=== PATIENT | male | born 1985 | race Caucasian/White ===

== ENCOUNTER 2023-01-02 12:10 | Emergency (ER) | payer BC, SELFPAY ==
[2023-01-02 12:14] VITALS: BP 170/102; PULSE 87; RESP 18; TEMP 36.4; O2SAT 98; BMI 29.9
[2023-01-02] MEDS: FLUORESCEIN SODIUM 1 MG STRIP OP (13:10)
--- NOTE | 2023-01-02 13:22 | ED.EYEPROB1 ---
HPI - Eye Problem General Chief complaint: Eye Problems Stated complaint: POSSIBLE ALLERGIC REACTION IN L EYE Time Seen by Provider: 01/02/23 12:14 Source: patient Mode of arrival: walk-in History of Present Illness HPI Narrative: 37-year-old male to the emergency department to provide of irritation to his left eye. Patient reports he was at his house. He can touch his eye. He reports that he had instant irritation and swelling to the eye. He reports that he has had mild ALLERGIC reactions to cats in the past. Took a Benadryl with only mild relief of symptoms. He does not wear contacts. He is otherwise at baseline health. Related Data Home Medications Medication Instructions Recorded Confirmed fluticasone propionate 50 1 spray intranasal Q12H 01/02/23 01/02/23 mcg/actuation nasal spray,suspension Previous Rx's Medication Instructions Recorded ketotifen fumarate 0.025 % (0.035 1 drp ophthalmic (eye) Q12H PRN 01/02/23 %) eye drops (Allergy Eye allergy symptoms #5 mL (ketotifen)) naphazoline 0.025 %-pheniramine 1 drp ophthalmic (eye) Q12H PRN 01/02/23 0.3 % eye drops (Eye Allergy eye irritation #15 mL Relief (naphazoline-pheniramine)) Allergies Allergy/AdvReac Type Severity Reaction Status Date / Time codeine AdvReac Intermediate Verified 01/02/23 12:17 Review of Systems ROS Status of ROS 10 or more systems reviewed and unremarkable except as noted in history and below Exam Narrative Exam Narrative: Left eye: Conjunctival injection, chemosis. Fluorescein stain with no uptake. Pupils equal round reactive to light. Visual acuity grossly intact. Constitutional Vital Signs, click to edit/add: Last Vital Signs Temp 97.5 F L 01/02/23 12:14 Pulse 87 01/02/23 12:14 Resp 18 01/02/23 12:14 BP 170/102 H 01/02/23 12:14 Pulse Ox 98 01/02/23 12:14 O2 Del Method Room Air 01/02/23 12:14 Course Vital Signs Vital signs: Vital Signs Temperature 97.5 F L 01/02/23 12:14 Pulse Rate 87 01/02/23 12:14 Respiratory Rate 18 01/02/23 12:14 Blood Pressure 170/102 H 01/02/23 12:14 Pulse Oximetry 98 01/02/23 12:14 Oxygen Delivery Method Room Air 01/02/23 12:14 Temperature 97.5 F L 01/02/23 12:14 Pulse Rate 87 01/02/23 12:14 Respiratory Rate 18 01/02/23 12:14 Blood Pressure 170/102 H 01/02/23 12:14 Pulse Oximetry 98 01/02/23 12:14 Oxygen Delivery Method Room Air 01/02/23 12:14 MDM - Eye Problem MDM Narrative Medical decision making narrative: 37-year-old male with eye irritation after petting a cat. Vital stable, patient is afebrile. He has impressive ecchymosis on exam. Fluorescein staining without any uptake. No foreign body visualized in the eye. Suspect this is all ALLERGIC conjunctivitis given the history and exam. ALLERGY eyedrops prescribed. He'll follow up with PCP. Return precautions discussed. All questions were answered. The patient was discharged home. Discharge Plan Discharge Chief Complaint: Eye Problems Clinical Impression: Acute allergic conjunctivitis of left eye Patient Disposition: Home, Self-Care Time of Disposition Decision: 13:18 Prescriptions / Home Meds: New Eye Allergy Relief 0.025-0.3 % drops 1 drp ophthalmic (eye) Q12H PRN (Reason: eye irritation) Qty: 15 0RF ketotifen fumarate [Allergy Eye (ketotifen)] 0.025 % (0.035 %) drops 1 drp ophthalmic (eye) Q12H PRN (Reason: allergy symptoms) Qty: 5 0RF No Action fluticasone propionate 50 mcg/actuation spray,suspension 1 spray INTRANASAL Q12H Print Language: Setswana Instructions: How to Use Eye Drops (ED), Conjunctivitis (ED) Stand Alone Forms: Portal Instructions Referrals: Boyd Pino MD [Primary Care Provider] - 1 week
== END 2023-01-02 13:42 | disposition home or self-care (01) ==
PROVIDERS: Emergency Provider Student in an Organized Health Care Education/Training Program; PCP Family Medicine
DX: H10.12 Acute atopic conjunctivitis, left eye (principal)
CPT/HCPCS: 99283

== ENCOUNTER 2023-02-26 09:00 | Outpatient (OUT) | payer BC, SELFPAY ==
--- NOTE | 2023-02-26 09:05 | XR_ITS ---
[address] [address] Patient Name: DAI MUÑOZ MRN: [id number] date: 1985 Sex: M Assigned Patient Location: RAD Current Patient Location: [facility] Accession/Order Number: [id number] Exam Date: 02/26/2023 09:12 Report Date: 02/26/2023 10:25 At the request of: JAKOB LEWIS Procedure: XR abdomen 1V EXAMINATION: XR abdomen 1V HISTORY: Kidney Stone COMPARISON: All/ FINDINGS: KIDNEY/URETER - RIGHT: Numerous nephroliths KIDNEY/URETER - LEFT: Numerous nephrolith PELVIS: No visible ureteral calcifications. Any visible calcifications favor phleboliths. BOWEL: No abnormal dilation or deviation. BONES: No acute abnormality. OTHER: Negative. No abnormal gaseous collections. XR/XR abdomen 1V IMPRESSION: Bilateral nephrolithiasis Electronically authenticated by: FREDI LIMA Date: 02/26/2023 10:25
== END 2023-02-26 09:01 | disposition home or self-care (01) ==
LOC: RAD 09:01
PROVIDERS: PCP Family Medicine; Visit Provider Urology
DX: N20.0 Calculus of kidney (principal)
CPT/HCPCS: 74018

== ENCOUNTER 2023-05-23 15:23 | Outpatient (OUT) | payer BC, SELFPAY ==
[2023-05-23 15:56] LABS: Total Volume 24 Hour Urine 1775 mL/24hr
[2023-05-23 16:04] LABS: Calcium 24 Hour Urine 205.9 mg/24hr (100.0-300.0); Calcium Urine Random 11.6 mg/dL (5.1-21.0); Creatinine Urine Random 60.73 mg/dL (20.00-300.00); Sodium 24 Hour Urine 105 mmol/24h (40-220); Sodium Urine Random 59 mmol/L (30-90)
[2023-05-23 16:08] LABS: Calcium 9.1 mg/dL (8.5-10.1); Carbon Dioxide 30.3 mmol/L (21.0-32.0); Chloride 105 mmol/L (98-107); Estimated GFR (African America >60 (>=60); Estimated GFR (Non-African Ame >60 (>=60); Potassium 3.7 mmol/L (3.5-5.1); Sodium 140 mmol/L (136-145); Uric Acid 6.2 mg/dL (3.5-7.2)
[2023-05-24 11:12] LABS: PTH, Intact 73 pg/mL (15-65)
[2023-05-25 07:09] LABS: Uric Acid, Urine 31.8 mg/dL (Not Estab.); Uric Acid,Urine 24hr 564.5 mg/24 hr (197.2-1078.7)
[2023-05-25 10:11] LABS: Phosphorus, Urine 35.9 mg/dL (Not Estab.); Phosphorus,Urine 24h 637 mg/24 hr (390-1425)
[2023-05-28 15:09] LABS: Citric Acid, U, 24hr 243 mg/24 hr (320-1240); Citric Acid, Urine 137 mg/L (Undefined)
== END 2023-05-23 15:24 | disposition home or self-care (01) ==
LOC: LAB 15:23
PROVIDERS: PCP Family Medicine; Visit Provider Urology
DX: N20.0 Calculus of kidney (principal)
CPT/HCPCS: 36415; 82310; 82340; 82374; 82435; 82507; 82565; 82570; 83735; 83945; 83970; 84105; 84132; 84295; 84300; 84520; 84550; 84560

== ENCOUNTER 2024-07-14 13:19 | Outpatient (OUT) | payer BC, SELFPAY ==
--- NOTE | 2024-07-14 13:23 | XR_ITS ---
[facility] [place] [id number] Patient Name: DAI MUÑOZ MRN: [id number] date: 1985 Sex: M Assigned Patient Location: RAD Current Patient Location: [facility] Accession/Order Number: [id number] Exam Date: 07/14/2024 16:54 Report Date: 07/14/2024 16:54 At the request of: JAKOB LEWIS MD Procedure: XR abdomen 1V KUB: CLINICAL INFORMATION: Follow-up kidney stones. Bilateral flank pain. COMPARISON: KUB 02/26/2023 FINDINGS: Multiple guidewire seen within both kidneys, largest measuring 8 mm within the left kidney. Findings are similar to the prior study. Presumed vascular calcifications are noted. No bowel obstruction or free air. Osseous structures demonstrate degenerative change. XR/XR abdomen 1V IMPRESSION: BILATERAL NEPHROLITHIASIS GROSSLY SIMILAR TO THE PRIOR STUDY. Impression dictated by: Opal Viramontes Jr.[email or web address]/14/2024 4:54 PM Dictation Location: [place] [address] Electronically authenticated by: [id number] Y Date: 07/14/2024 16:54
--- OUTSIDE RECORDS SUMMARY | 2024-07-14 13:25 | XMS_ITS | CCD ---
Author Organization [facility] Providers Care Medicaid Eligibility Specialist Name Role Phone BOYD DESOUZA Primary Care Physician LYLY, DR BOYD Aguilar Primary Care Unavailable YAZ ALDANA Admitting YAZ Raygoza Attending YAZ Raygoza Consulting Unavailable ANDREI, DR LIA Bhakta Admitting Unavailable ANDREI, DR LIA Bhakta Attending Unavailable LYLY, DR BOYD Aguilar Primary Care Unavailable ANDREI, DR LIA Bhakta Consulting Unavailable SYLVIA, DR CANDIE Eisenberg Consulting Unavailable LYLY, DR BOYD Aguilar Primary Care Unavailable YAZ ALDANA Consulting Unavailable YAZ ALDANA Admitting Unavailable KATYA, YAZ Attending Unavailable FREDI NAPIER Consulting Unavailable Boyd Desouza MD Primary Care Provider Boyd Desouza MD Unavailable BOYD DESOUZA Attending Unavailable BOYD DESOUZA Attending Unavailable Ray LEWIS Attending Unavailable Allergies Allergy Classification Reported Allergen(s) Allergy Type Date of Onset Reaction(s) Facility (20 sources) Codeine; Translations: [codeine] Drug Allergy 9 Vomiting (disorder) [facility] (1 source) Codeine Drug Allergy [facility] (1 source) Codeine; Translations: [codeine sulfate] Drug Allergy [facility] Repository Medications Current Medications Medication Drug Class(es) Dates Sig (Normalized) Sig (Original) acetaminophen 500 mg oral tablet (8 sources) Start: 10-04-2021 take 500 mg by mouth every six hours as needed for pain Tylenol 500 mg, Oral, q6hr, PRN as needed for pain, Refills(s) 0 Start Date: 10/04/21 Status: Ordered Start: 10-04-2021 Tylenol Oral, Refills(s) 0 Start Date: 10/04/21 Status: Ordered benzonatate 200 mg oral capsule (2 sources) Non-narcotic Antitussive Start: 07-09-2024 take 1 capsule by mouth three times daily as needed for cough benzonatate (Tessalon) 200 MG capsule Indications: Influenza A Take 1 capsule (200 mg) by mouth 3 (three) times a day as needed for cough Do not crush or chew. 30 capsule 1 07/09/2024 Active Start: 07-09-2024 take 1 capsule by mo uth three times daily as needed for cough benzonatate (Tessalon) 200 MG capsule Indications: Influenza A Take 1 capsule (200 mg) by mouth 3 (three) times a day as needed for cough Do not crush or chew. 30 capsule 1 07/09/2024 Active cetirizine hydrochloride 10 mg oral tablet (3 sources) Histamine-1 Receptor Antagonist Start: 09-21-2023 take 1 tablet by mouth once daily cetirizine (ZyrTEC) 10 MG tablet Indications: Seasonal allergic rhinitis due to pollen Take 1 tablet (10 mg) by mouth Daily 30 tablet 5 09/21/2023 Active fluticasone propionate 0.05 mg/actuat metered dose nasal spray (11 sources) Corticosteroid Start: 12-17-2023 fluticasone (Flonase) 50 MCG/ACT nasal spray Indications: Seasonal allergic rhinitis due to pollen USE 2 SPRAYS IN EACH NOSTRIL DAILY.SHAKE GENTLY.BEFORE FIRST USE,PRIME PUMP.AFTER USE,CLEAN TIP AND REPLACE CAP. 48 mL 2 12/17/2023 Active Start: 10-04-2021 take 50 ug by inhala tion once daily as needed fluticasone propionate 50 mcg, Inhalation, Daily, PRN Allergy symptoms, Refills(s) 0 Start Date: 10/04/21 Status: Ordered Start: 10-04-2021 fluticasone pr opionate Inhalation, Refills(s) 0 Start Date: 10/04/21 Status: Ordered hyoscyamine sulfate 0.125 mg oral tablet (2 sources) Start: 10-04-2021 take 1 tablet by mouth every six hours Levsin 0.125 mg SL Tab 0.125 mg = 1 tab(s), Oral, q6hr, # 20 tab(s), Refills(s) 0, [id number] Start Date: 10/04/21 Status: Ordered ketorolac tromethamine 10 mg oral tablet (2 sources) Nonsteroidal Anti-inflammatory Drug, Cyclooxygenase Inhibitor Start: 10-04-2021 take 1 tablet by mouth every six hours as needed for pain ketorolac 10 mg Tab 10 mg = 1 tab(s), Oral, q6hr, PRN for pain, # 20 tab(s), Refills(s) 0, [id number] Start Date: 10/04/21 Status: Ordered melatonin 3 mg oral tablet (8 sources) Start: 10-04-2021 take 3 mg by mouth once daily at bedtime as needed for sleep melatonin 3 mg, Oral, Once a day (at bedtime), PRN as needed for sleep, Refills(s) 0, Insomnia Start Date: 10/04/21 Status: Ordered Start: 10-04-2021 melatonin Once a day (at bedtime), Refills(s) 0 Start Date: 10/04/21 Status: Ordered potassium bicarbonate 25 meq effervescent oral tablet (4 sources) Start: 08-06-2023 Effer-K 25 MEQ effervescent tablet ALLOW 1 TABLET TO DISSOLVE IN 4 OUNCES OF WATER BEFORE DRINKING TWICE DAILY 08/06/2023 Active predniSONE 50 mg oral tablet (2 sources) Start: 07-09-2024 End: 07-15-2024 take 1 tablet by mouth once daily predniSONE (Deltasone) 50 MG tablet Indications: Influenza A Take 1 tablet (50 mg) by mouth Daily for 6 days 6 tablet 07/09/2024 07/15/2024 Active tamsulosin hydrochloride 0.4 mg oral capsule (3 sources) alpha-Adrenergi c Sedrick Start: 08-17-2023 Tamsulosin Active MG PO August 17, 2023 12:00am Start: 10-04-2021 take 1 capsule by [facility] once daily tamsulosin 0.4 mg Cap 0.4 mg = 1 cap(s), Oral, Daily, # 30 cap(s), Refills(s) 0, Pharmacy: [facility]/pharmacy #[id number] Start Date: 10/04/21 Status: Ordered Vitamin D3 50 mcg (2000 intl units) oral tablet, chewable (2 sources) Start: 10-04-2021 Vitamin D3 50 mcg (2000 intl units) oral tablet, chewable Refills(s) 0 Start Date: 10/04/21 Status: Ordered Problems Active Problems Problem Classification Problem Date Documented Da te Episodic/Chronic Allergic reactions (1 source) Allergic condition; Translations: [Allergy, unspecified, initial encounter] 08-17-2023 Episodic Calculus of urinary tract (20 sources) Kidney stone; Translations: [Calculus of kidney] Onset: 10-04-2021 Episodic Genitourinary symptoms and ill-defined conditions (18 sources) Urgent desire to urinate; Translations: [Urgency of urination] Onset: 10-04-2021 Episodic Headache; including migraine (3 sources) Ophthalmic migraine; Translations: [Migraine with aura, not intractable, without status migrainosus] Onset: 09-21-2023 09-21-2023 Chronic Hyperplasia of prostate (1 source) Benign prostatic hyperplasia; Translations: [Benign prostatic hyperplasia without lower urinary tract symptoms] 08-17-2023 Chronic Influenza (4 sources) Influenza due to Influenza A virus; Translations: [Influenza due to other identified influenza virus with other respiratory manifestations] Onset: 07-09-2024 07-09-2024 Episodic Nutritional deficiencies (3 sources) Vitamin D deficiency; Translations: [Vitamin D deficiency, unspecified] Onset: 09-21-2023 09-21-2023 Chronic Other upper respiratory disease (3 sources) Allergic rhinitis due to pollen; Translations: [Allergic rhinitis due to pollen] Onset: 09-21-2023 09-21-2023 Chronic Other upper respiratory infections (1 source) Acute pharyngitis, unspecified; Translations: [Acute pharyngitis] 08-17-2023 Episodic Past or Other Problems Problem Classification Problem Date Documented Date Episodic/Chronic Abdominal pain (4 sources) Right lower quadrant pain; Translations: [RIGHT LOWER QUADRANT PAIN] Onset: 12-03-2021 Episodic Fluid and electrolyte disorders (3 sources) Hypokalemia; Translations: [Hypokalemia] Onset: 09-21-2023 09-21-2023 Episodic Intestinal infection (3 sources) Viral gastroenteritis; Translations: [Viral intestinal infection, unspecified] Onset: 09-21-2023 Resolved: 07-09-2024 09-21-2023 Episodic Nausea and vomiting (4 sources) Nausea; Translations: [NAUSEA] Onset: 01-28-2022 Episodic Other aftercare (1 source) Other extermination supervisor (current) drug therapy; Translations: [OTH PRISON CURRENT DRUG THERAPY] Onset: 02-09-2022 Episodic Other connective tissue disease (3 sources) Pain in right heel; Translations: [Pain in right foot] Onset: 09-21-2023 09-21-2023 Episodic Other skin disorders (3 sources) Seborrheic keratosis; Translations: [Other seborrheic keratosis] Onset: 09-21-2023 09-21-2023 Episodic Residual codes; unclassified (1 source) Hypothermia, not associated with low environmental temperature; Translations: [HYPOTHERMIA NOT W/LOW ENVIR TEMP] Onset: 02-09-2022 Episodic Residual codes; unclassified (3 sources) Persistent insomnia; Translations: [Insomnia, unspecified] Onset: 09-21-2023 09-21-2023 Episodic Residual codes; unclassified (3 sources) Olfactory hallucinations; Translations: [Other hallucinations] Onset: 09-21-2023 Resolved: 09-21-2023 09-21-2023 Episodic Results Test Name Value Interpretation Reference Range Facility Laboratory - Microbiology an d Antimicrobial susceptibilityon 07-09-2024 SARS-CoV-2 (COVID-19) RNA LOLA+probe Ql (Unsp spec) Negative [facility] No Panel Informationon 07-09 FLU A Positive [facility] FLU B Negative [facility] Interpretation and review of laboratory results Abnormal [facility] XR KUB 1 VIEWon 05-08-2022 XR KUB 1 VIEW EXAMINATION: XR KUB 1 VIEW HISTORY: Kidney stone ; recent lithotripsy COMPARISON: CT abdomen pelvis 12/03/2021 FINDINGS: KIDNEY/URETER - RIGHT: Numerous small stones within kidney. KIDNEY/URETER - LEFT: Numerous tiny calcifications within kidney, likely fragmentation of previously seen larger stones. PELVIS: No visible ureteral stones. Stable pelvic calcifications favoring phleboliths. BOWEL: No abnormal dilation or deviation. BONES: No acute abnormality. OTHER: Negative. No abnormal gaseous collections. IMPRESSION: 1. Bilateral nephrolithiasis. No appreciable ureteral stones. Electronically authenticated by: CANDIE WARD Date: 2022-05-08 16:08 Normal [facility] CHEMISTRYOrdered By: SYSTEM SYSTEM on 04-19-2022 Anion gap [Moles/Vol] 12 mmol/L Normal 6 - 16 mEq/L [facility] Remisol Chloride [Moles/Vol] 105 mmol/L Normal 101 - 1 11 mmol/L [facility] Rem[facility] CO2 [Moles/Vol] 26 mmol/L Normal 21 - 31 mmol/L [facility] Creatinine [Mass/Vol] 1.0 mg/dL Normal 0.5 - 1.3 mg/dL [facility] Remisol GFR/1.73 sq M.predicted among blacks MDRD (S/P/Bld) [Vol rate/Area] mL/min/1.73 m2 Normal >=59mL/min/1. 73 m2 [facility] Chem S GFR/1.73 sq M.predicted among non-blacks MDRD (S/P/Bld) [Vol rate/Area] mL/min/1.73 m2 Normal >=59mL/min/1. 73 m2 [facility] Chem S Potassium [Moles/Vol] 3.7 mmol/L Normal 3.5 - 5.3 mmol/L [facility]isol Sodium [Moles/Vol] 139 mmol/L Normal 135 - 145 mmol/L [facility] Urea nitrogen [Mass/Vol] 16 mg/dL Normal 5 - 21 mg/dL [facility] COAGULATIONOrdered By: Carmelina Burrell on 04-19-2022 aPTT Coag (PPP) [Time] 32.8 s Normal 25.1 - 36.5 second(s) [facility] Auto Coag INR Coag (PPP) [Relative time] 1.0 {INR} Invalid Interpretation Code [facility] Auto Coag PT Coag (PPP) [Time] 10.8 s Normal 9.4 - 1 2.5 second(s) [facility] Auto Coag HEMATOLOGYOrdered By: Chelsy Carrillo on 04-19-2022 Erythrocyte distribution width (RBC) [Ratio] 14.1 % Normal 10.9 - 14.2 % [facility] Hematocrit (Bld) [Volume fraction] 42.7 % Normal 37.7 - 49.0 % [facility] Hemoglobin (Bld) [Mass/Vol] 14.7 g/dL Normal 13.5 - 17.5 gm/dL [facility] MCH (RBC) [Entitic mass] 28.3 pg Normal 27.0 - 34.0 pg [facility] MCHC (RBC) [Mass/Vol] 34.5 g/dL Normal 31.4 - 36.0 gm/dL [facility] MCV (RBC) [Entitic vol] 82.0 fL Normal 80.0 - 100.0 fL [facility] Platelet mean volume (Bld) [Entitic vol] 8.4 fL Normal 6.4 - 10.8 fL [facility] Platelets (Bld) [#/Vol] 247.0 E9/L Normal 150.0 - 500.0 E9/L [facility] RBC (Bld) [#/Vol] 5.2 E12/L Normal 4.3 - 5.9 E12/L [facility] WBC corrected for nucl RBC Auto (Bld) [#/Vol] 6.6 E9/L Normal 4.0 - 11.0 E9/L [facility] URINALYSISOrdered By: Quin Burrell on 04-19-2022 Bacteria LM Ql (Urine sed) Trace /HPF Normal Trace/HPF [facility] UA Auto SS Bilirubin Ql (U) Negative (04/19/22 11:46 AM) Normal Negative [facility] UA Auto SS Clarity (U) Clear (04/19/22 11:46 AM) Normal Clear [facility] UA Auto SS Color (U) Yellow (04/19/22 11:46 AM) Normal Yellow [facility] UA Auto SS Epithelial cells.squamous LM.HPF (Urine sed) [#/Area] 0-2 /HPF Normal 0-2/HPF [facility] UA Aut o SS Glucose Test strip (U) [Mass/Vol] Negative (04/19/22 11:46 AM) Normal Negative [facility] UA Auto SS Hemoglobin Ql (U) Trace *ABN* (04/19/22 11:46 AM) Invalid Interpretation Code Negative [facility] UA Auto SS Ketones (U) [Mass/Vol] Negative (04/19/22 11:46 AM) Normal Negative [facility] UA Auto SS [place].plasma/[place] .RBC (Bld) [Mass ratio] 0-3 /HPF Normal 0-3/HPF [facility] UA Auto SS Mucus Ql (Urine sed) 2+ (04/19/22 11:46 AM) Normal [facility] UA Auto SS Nitrite Ql (U) Negative (04/19/22 11:46 AM) Normal Negative [facility] UA Auto SS pH (U) 5.5 *NA* (04/19/22 11:46 AM) Invalid Interpretation Code 5.0 - 9.0 [facility] UA Auto SS Protein (U) [Mass/Vol] Negative (04/19/22 11:46 AM) Normal Negative [facility] UA Auto SS Specific gravity (U) [Rel density] 1.025 *NA* (04/19/22 11:46 AM) Invalid Interpretation Code 1.005 - 1.030 [facility] UA Auto SS UA Spec Desc Clean Catch (04/19/22 11:46 AM) Normal [facility] UA Auto SS Urobilinogen Qn (U) 0.3337666 {Padmini'U}/dL Normal 0.0 - 1.0 EU/dL [facility] UA Auto SS WBC Auto Ql (U) Negative (04/19/22 11:46 AM) Normal Negative [facility] UA Auto SS WBC LM.HPF (Urine sed) [#/Area] 0-5 /HPF Normal 0-5/HPF [facility] UA Auto SS CHEMISTRYOrdered By: SYSTEM SYSTEM on 01-13-2022 Anion gap [Moles/Vol] 12 mmol/L Normal 6 - 16 mEq/L [facility] Remisol Calcium [Mass/Vol] 9.4 mg/dL Normal 8.9 - 11. 1 mg/dL [facility] Remisol Chloride [Moles/Vol] 105 mmol/L Normal 101 - 1 11 mmol/L [facility] Remisol CO2 [Moles/Vol] 24 mmol/L Normal 21 - 31 mmol/L [facility] Remisol Creatinine [Mass/Vol] 1.0 mg/dL Normal 0.5 - 1.3 mg/dL [facility] Rem[facility] GFR/1.73 sq M.predicted among blacks MDRD (S/P/Bld) [Vol rate/Area] mL/min/1.73 m2 Normal >=59mL/min/1. 73 m2 [facility] Chem S GFR/1.73 sq M.predicted among non-blacks MDRD (S/P/Bld) [Vol rate/Area] mL/min/1.73 m2 Normal >=59mL/min/1. 73 m2 [facility] Chem S Glucose [Mass/Vol] 88 mg/dL Normal 55 - 199 mg/dL [facility] Remisol Potassium [Moles/Vol] 3.7 mmol/L Normal 3.5 - 5.3 mmol/L [facility]isol Sodium [Moles/Vol] 137 mmol/L Normal 135 - 145 mmol/L [facility] Urea nitrogen [Mass/Vol] 12 mg/dL Normal 5 - 21 mg/dL [facility]isol Urea nitrogen/Creatinine [Mass ratio] 12 mg/mg Normal 10 - 20 [facility] COAGULATIONOrdered By: Jae Carrillo on 01-13-2022 aPTT Coag (PPP) [Time] 32.4 s Normal 25.1 - 36.5 second(s) [facility] Auto Coag INR Coag (PPP) [Relative time] 1.0 {INR} Invalid Interpretation Code [facility] Auto Coag PT Coag (PPP) [Time] 10.6 s Normal 9.4 - 1 2.5 second(s) [facility] Auto Coag HEMATOLOGYOrdered By: SYSTEM SYSTEM on 01-13-2022 Basophils/100 WBC (Bld) 0.4 % Normal 0.0 - 2.0 % [facility] Basophils/Leukocytes Auto (Bld) [Pure # fraction] 0.0 E9/L Normal 0.0 - 0.2 E9/L [facility] Eosinophils/100 WBC (Bld) 3.1 % Normal 0.0 - 8.0 % [facility] Eosinophils/Leukocytes Auto (Bld) [Pure # fraction] 0.2 E9/L Normal 0.0 - 0.5 E9/L [facility] Lymphocytes/100 WBC (Bld) 32.8 % Normal 14.0 - 50.0 % [facility] Lymphocytes/Leukocytes Auto (Bld) [Pure # fraction] 2.1 E9/L Normal 1.0 - 4.0 E9/L [facility] Monocytes/100 WBC (Bld) 8.0 % Normal 4.0 - 14.0 % [facility] Monocytes/Leukocytes Auto (Bld) [Pure # fraction] 0.5 E9/L Normal 0.2 - 1.0 E9/L [facility] Neutrophils/100 WBC (Bld) 55.7 % Normal 36.0 - 75.0 % [facility] Neutrophils/Leukocytes Auto (Bld) [Pure # fraction] 3.5 E9/L Normal 2.0 - 7.5 E9/L [facility] HEMATOLOGYOrdered By: Shahriar Saul on 01-13-2022 Erythrocyte distribution width (RBC) [Ratio] 14.2 % Normal 10.9 - 14.2 % [facility] Hematocrit (Bld) [Volume fraction] 42.6 % Normal 37.7 - 49.0 % [facility] Hemoglobin (Bld) [Mass/Vol] 14.5 g/dL Normal 13.5 - 17.5 gm/dL [facility] MCH (RBC) [Entitic mass] 28.2 pg Normal 27.0 - 34.0 pg [facility] MCHC (RBC) [Mass/Vol] 34.0 g/dL Normal 31.4 - 36.0 gm/dL [facility] MCV (RBC) [Entitic vol] 82.9 fL Normal 80.0 - 100.0 fL [facility] Platelet mean volume (Bld) [Entitic vol] 9.4 fL Normal 6.4 - 10.8 fL [facility] Platelets (Bld) [#/Vol] 235.0 E9/L Normal 150.0 - 500.0 E9/L [facility] RBC (Bld) [#/Vol] 5.1 E12/L Normal 4.3 - 5.9 E12/L [facility] WBC corrected for nucl RBC Auto (Bld) [#/Vol] 6.3 E9/L Normal 4.0 - 11.0 E9/L [facility] URINALYSISOrdered By: Chelsy Carrillo on 01-13-2022 Bilirubin Ql (U) Negative (01/13/22 10:40 AM) Normal Negative [facility] UA Auto SS Clarity (U) Clear (01/13/22 10:40 AM) Normal Clear [facility] UA Auto SS Color (U) Yellow (01/13/22 10:40 AM) Normal Yellow [facility] UA Auto SS Epithelial cells.squamous LM.HPF (Urine sed) [#/Area] 0-2 /HPF Normal 0-2/HPF [facility] Aut o SS Glucose Test strip (U) [Mass/Vol] Negative (01/13/22 10:40 AM) Normal Negative [facility] UA Auto SS Hemoglobin Ql (U) Trace *ABN* (01/13/22 10:40 AM) Invalid Interpretation Code Negative [facility] UA Auto SS Ketones (U) [Mass/Vol] Negative (01/13/22 10:40 AM) Normal Negative [facility] UA Auto SS [place].plasma/[place] .RBC (Bld) [Mass ratio] 0-3 /HPF Normal 0-3/HPF [facility] UA Auto SS Mucus Ql (Urine sed) Trace (01/13/22 10:40 AM) Normal [facility] UA Auto SS Nitrite Ql (U) Negative (01/13/22 10:40 AM) Normal Negative [facility] UA Auto SS pH (U) 6.0 *NA* (01/13/22 10:40 AM) Invalid Interpretation Code 5.0 - 9.0 [facility] UA Auto SS Protein (U) [Mass/Vol] Negative (01/13/22 10:40 AM) Normal Negative [facility] UA Auto SS Specific gravity (U) [Rel density] 1.020 *NA* (01/13/22 10:40 AM) Invalid Interpretation Code 1.005 - 1.030 [facility] UA Auto SS UA Spec Desc Clean Catch (01/13/22 10:40 AM) Normal [facility] UA Auto SS Urobilinogen Qn (U) 0.1188567 {Padmini'U}/dL Normal 0.0 - 1.0 EU/dL [facility] U[facility] Auto SS WBC Auto Ql (U) Negative (01/13/22 10:40 AM) Normal Negative [facility] Auto SS WBC LM.HPF (Urine sed) [#/Area] 0-5 /HPF Normal 0-5/HPF [facility] UA Auto SS CBC AUTO DIFFon 12-03-2021 BASO # 0.0 103/ul Normal 0.0-0.1 [facility] Comment on above: Performed By: #### C BC #### [facility] [address] [place] [address] Dr. Vivian Quintanilla Basophils/100 WBC (Bld) 0.3 % Normal 0.2-2.0 [facility] Comment on above: Performed By: #### C BC #### [facility] [address] [place] [address] [id number] [address] Vivian Quintanilla EO # 0.2 103/ul Normal 0.0-0.7 [facility] Comment on above: Performed By: #### C BC #### [facility] [address] [place] [address] Dr. Vivian Quintanilla Eosinophils/100 WBC (Bld) 3.3 % Normal 0.9-7.0 [facility] Comment on above: Performed By: #### C BC #### [facility] [address] [place] [address] Dr. Vivian Quintanilla Erythrocyte distribution width (RBC) [Ratio] 13.4 % Normal 11.0-15.0 [facility] Comment on above: Performed By: #### C BC #### [facility] [address] [place] [address] Dr. Vivian Quintanilla Hematocrit (Bld) [Volume fraction] 43.2 % Normal 42.0-54.0 [facility] Comment on above: Performed By: #### C BC #### [facility] [address] [place] [address] Dr. Vivian Quintanilla Hemoglobin (Bld) [Mass/Vol] 14.3 g/dL Normal 14.0-18.0 [facility] Comment on above: Performed By: #### C BC #### [facility] [address] [place] [address] Dr. Vivian Quintanilla IG # 0.01 10e3/ul Normal 0.00-0.03 [facility] Comment on above: Performed By: #### C BC #### [facility] [address] [place] [address] Dr. Vivian Quintanilla IG % 0.2 % Normal 0.0-0.5 [facility] Comment on above: Performed By: #### C BC #### [facility] [address] [place] [address] Dr. Vivian Quintanilla LYMPH # 2.2 103/ul Normal 1.2-3.8 [facility] Comment on above: Performed By: #### C BC #### [facility] [address] [place] [address] Dr. Vivian Quintanilla Lymphocytes/100 WBC (Bld) 35.2 % Normal 20.5-60.0 [facility] Comment on above: Performed By: #### C BC #### [facility] [address] [place] [address] Dr. Vivian Quintanilla MANUAL DIFF REQ NO Normal [facility] Comment on above: Performed By: #### C BC #### [facility] [address] [place] [address] Dr. Vivian Quintanilla MCH (RBC) [Entitic mass] 28.1 pg Normal 25.9-34.0 [facility] Comment on above: Performed By: #### C BC #### [facility] [address] [place] [address] Dr. Vivian Quintanilla MCHC (RBC) [Mass/Vol] 33.1 g/dL Normal 29.9-35.2 [facility] Comment on above: Performed By: #### C BC #### [facility] [address] [place] [address] Dr. Vivian Quintanilla MCV (RBC) [Entitic vol] 84.9 fL Normal 80.0-94.0 [facility] Comment on above: Performed By: #### C BC #### [facility] [address] [place] [address] Dr. Vivian Quintanilla MONO # 0.3 103/ul Normal 0.3-0.8 [facility] Comment on above: Performed By: #### C BC #### [facility] [address] [place] [address] Dr. Vivian Quintanilla Monocytes/100 WBC (Bld) 5.2 % Normal 1.7-12.0 [facility] Comment on above: Performed By: #### C BC #### [facility] [address] [place] [address] Dr. Vivian Quintanilla NEUT # 3.4 103/ul Normal 1.4-6.5 [facility] Comment on above: Performed By: #### C BC #### [facility] [address] [place] [address] Dr. Vivian Quintanilla Neutrophils/100 WBC (Bld) 55.8 % Normal 43.0-75.0 [facility] Comment on above: Performed By: #### C BC #### [facility] [address], [place] [address] Dr. Vivian Quintanilla Platelet mean volume (Bld) [Entitic vol] 10.4 fL Normal 9.5-13.5 [facility] Comment on above: Performed By: #### C BC #### [facility] [address] [place], [place] [address] Dr. Vivian Quintanilla PLT 241 103/ul Normal 150-450 [facility] Comment on above: Performed By: #### C BC #### [facility] [address] [place], [place] [address] Dr. Vivian Quintanilla RBC 5.09 106/ul Normal 4.70-6.10 [facility] Comment on above: Performed By: #### C BC #### [facility] [address] [place] [address] [address] Vivian Quintanilla WBC 6.1 103/ul Normal 4.0-11.0 [facility] Comment on above: Performed By: #### C BC #### [facility] [address] [place] ABD/PELVIS WO CONon 12-03 CT ABD/PELVIS WO CON CT ABD/PELVIS WO CON CLINICAL: Calculus of kidney. Acute right flank pain. COMPARISON: 04/20/2021, 12/03/2015. TECHNIQUE: High-resolution axial images were obtained from diaphragms to pubic symphysis. Dose reduction: mA and/or kV are were adjusted by automated exposure control software based upon patients height and weight. FINDINGS: Lung bases are unremarkable. The liver is diffusely decreased in density without focal space-occupying lesion. Gallbladder shows no calcified gallstones. No CT evidence of biliary obstruction. Spleen, pancreas and adrenals are unremarkable. There are bilateral renal calculi present, measuring up to 6 mm on the right and 5 mm on the left. No evidence of acute obstructive uropathy, attention to the right side. No hydroureter or hydronephrosis on either side. No evidence of perinephric fluid collection. Urinary bladder shows no evidence of calculus and is incompletely distended. Prostate is upper normal in size. No bowel obstruction or free intraperitoneal air. No ascites or abdominal adenopathy. The appendix is not identified with certainty, and there are surgical clips near the cecal apex and in the right lower quadrant suggesting prior appendectomy, correlate with clinical history. No CT evidence of acute appendicitis. Osseous structures show no acute traumatic or destructive lesion. IMPRESSION: 1. No evidence of acute urinary obstruction. Multiple nonobstructing calculi are present in both kidneys, as detailed above. No hydroureteronephros is, bladder calculus, or ureteral calculus on either side, attention to the right. 2. No acute intra-abdominal findings. Diffuse hepatic steatosis is noted. Electronically authenticated by: FREDI NAPIER Date: 2021-12-03 14:00 Normal [facility] ER URINE PROFILEon 2 Bilirubin Ql (U) Negative Normal NEGATIVE [facility] Comment on above: Performed By: #### U MICRO, ERUR #### [facility] [address] [place] [address] Dr. Vivian Quintanilla Clarity (U) CLEAR Normal CLEAR [facility] Comment on above: Performed By: #### U MICRO, ERUR #### [facility] [address] [place] [address] Dr. Vivian Quintanilla Color (U) YELLOW Normal YELLOW [facility] Comment on above: Performed By: #### U MICRO, ERUR #### [facility] [address] [place] [address] Dr. Vivian SAMSD A micrscopic examination will be performed if indicated. Normal [facility] Comment on above: Performed By: #### U MICRO, ERUR #### [facility] [address] [place] [address] Dr. Vivian Quintanilla Glucose Ql (U) Negative Normal NEGATIVE The [facility] Comment on above: Performed By: #### U MICRO, ERUR #### [facility] [address] [place] [address] Dr. Vivian Quintanilla Hemoglobin Ql (U) SMALL Abnormal NEGATIVE [facility] Comment on above: Performed By: #### U MICRO, ERUR #### [facility] [address] [place] [address] Dr. Vivian Quintanilla Ketones Ql (U) Negative Normal NEGATIVE [facility] Comment on above: Performed By: #### U MICRO, ERUR #### [facility] [address] [place] [address] Dr. Vivian Quintanilla LEUKOCYTES Negative Normal NEGATIVE [facility] Comment on above: Performed By: #### U MICRO, ERUR #### [facility] [address] [place] [address] Dr. Vivian Quintanilla Nitrite Ql (U) Negative Normal NEGATIVE [facility] Comment on above: Performed By: #### U MICRO, ERUR #### [facility] [address] [place] [address] Dr. Vivian Quintanilla pH (U) 6.0 [pH] Normal 5-9 [facility] Comment on above: Performed By: #### U MICRO, ERUR #### [facility] [address] [place] [address] Dr. Vivian Quintanilla SPEC GRAVITY 1.025 Normal 1.005-<=1.025 [facility] Comment on above: Performed By: #### U MICRO, ERUR #### [facility] [address] [place] [address] Dr. Vivian Quintanilla UA PROTEIN Negative Normal NEGATIVE/ TRACE [facility] Comment on above: Performed By: #### U MICRO, ERUR #### [facility] [address] [place] [address] Dr. Vivian Quintanilla UR MICRO IND INDICATED Normal [facility] Comment on above: Performed By: #### U MICRO, ERUR #### [facility] [address] [place] [address] Dr. Vivian Quintanilla Urobilinogen Qn (U) 0.2 {Padmini'U}/dL Normal 0.2 - 1. 0 [facility] Comment on above: Performed By: #### U MICRO, ERUR #### [facility] [address] [place] [address] Dr. Vivian Quintanilla LIPASEon 12-03-2021 Lipase [Catalytic activity/Vol] 108.0 U/L Normal 73.0-393.0 [facility] Comment on above: Performed By: #### C MP, LIPA #### [facility] [address] [address] [address] Vivian Quintanilla PROF 14(COMP METB)on 022 Albumin [Mass/Vol] 3.7 g/dL Normal 3.4-5.0 [facility] Comment on above: Performed By: #### C MP, LIPA #### [facility] [address] [address] [address] Vivian Quintanilla Albumin/Globulin [Mass ratio] 1.1 {ratio} Normal [facility] Comment on above: Performed By: #### C MP, LIPA #### [facility] [address] [address] [address] Vivian Quintanilla ALP [Catalytic activity/Vol] 72 U/L Normal 46-116 [facility] Comment on above: Performed By: #### C MP, LIPA #### [facility] [address] [address] [address] Vivian Quintanilla ALT [Catalytic activity/Vol] 45 U/L Normal 16-63 [facility] Comment on above: Performed By: #### C MP, LIPA #### [facility] [address] [address] [address] Vivian Quintanilla Anion gap [Moles/Vol] 11.5 mmol/L Normal [facility] Comment on above: Performed By: #### C MP, LIPA #### [facility] [address] [address] [address] Vivian Quintanilla AST [Catalytic activity/Vol] 19 U/L Normal 15-37 [facility] Comment on above: Performed By: #### C MP, LIPA #### [facility] [address] [address] [address] Vivian Quintanilla Bilirubin [Mass/Vol] 0.5 mg/dL Normal 0.2-1.0 [facility] Comment on above: Performed By: #### C MP, LIPA #### [facility] [address] [address] [address] Vivian Quintanilla Calcium [Mass/Vol] 8.9 mg/dL Normal 8.5-10.1 [facility] Comment on above: Performed By: #### C MP, LIPA #### [facility] [address] [address] [address] Vivian Quintanilla Chloride [Moles/Vol] 106 mmol/L Normal 98-107 [facility] Comment on above: Performed By: #### C MP, LIPA #### [facility] [address] [address] [address] Vivian Quintanilla CO2 [Moles/Vol] 26.1 mmol/L Normal 21.0-32.0 [facility] Comment on above: Performed By: #### C MP, LIPA #### [facility] [address] [place] [address] Dr. Vivian Quintanilla Creatinine [Mass/Vol] 1.24 mg/dL Normal 0.70-1.30 [facility] Comment on above: Performed By: #### C MP, LIPA #### [facility] [address] [place] [address] Dr. Vivian Quintanilla EGFR-AF ARMENIAN >60 Normal >=60 [facility] Comment on above: Performed By: #### C MP, LIPA #### [facility] [address] [place] [address] Dr. Vivian Quintanilla EGFR-NON AF ARMENIAN >60 Normal >=60 [facility] Comment on above: Performed By: #### C MP, LIPA #### [facility] [address] [place] [address] Dr. Vivian Quintanilla Globulin (S) [Mass/Vol] 3.4 g/dL Normal [facility] Comment on above: Performed By: #### C MP, LIPA #### [facility] [address] [place] [address] Dr. Vivian Quintanilla Glucose [Mass/Vol] 147 mg/dL Critically high 74-106 [facility] Comment on above: Performed By: #### C MP, LIPA #### [facility] [address] [place] [address] Dr. Vivian Quintanilla Potassium [Moles/Vol] 3.6 mmol/L Normal 3.5-5.1 [facility] Comment on above: Performed By: #### C MP, LIPA #### [facility] [address] [place] [address] Dr. Vivian Quintanilla Protein [Mass/Vol] 7.1 g/dL Normal 6.4-8.2 [facility] Comment on above: Performed By: #### C MP, LIPA #### [facility] [address] [place] [address] Dr. Vivian Quintanilla Sodium [Moles/Vol] 140 mmol/L Normal 136-145 [facility] Comment on above: Performed By: #### C MP, LIPA #### [facility] [address] [place] [address] Dr. Vivian Quintanilla Urea nitrogen [Mass/Vol] 11.0 mg/dL Normal 7.0-18.0 [facility] Comment on above: Performed By: #### C MP, LIPA #### [facility] [address] [place] [address] Dr. Vivian Quintanilla Urea nitrogen/Creatinine [Mass ratio] 8.9 mg/mg Normal [facility] Comment on above: Performed By: #### C MP, LIPA #### [facility] [address] [place] [address] Dr. Vivian Quintanilla URINE MICROSCOPIC ONLYon BACTERIA NONE SEEN Normal NONE SEEN [facility] Comment on above: Performed By: #### U MICRO, ERUR #### [facility] [address] [place] [address] Dr. Vivian Quintanilla Bacteria identified Cx Nom (U) NOT INDICATED Normal [facility] Comment on above: Performed By: #### U MICRO, ERUR #### [facility] [address] [place] [address] Dr. Vivian Quintanilla CAST NONE SEEN Normal NONE SEEN [facility] Comment on above: Performed By: #### U MICRO, ERUR #### [facility] [address] [place] [address] Dr. Vivian Quintanilla Crystals LM Nom (Urine sed) NONE SEEN Normal NONE SEEN [facility] Comment on above: Performed By: #### U MICRO, ERUR #### [facility] [address] [address] [address] Vivian Quintanilla Epithelial cells LM Ql (Urine sed) FEW Abnormal NONE SEEN /RARE [facility] Comment on above: Performed By: #### U MICRO, ERUR #### [facility] [address] [address] [address] Vivian Quintanilla MUCOUS NONE SEEN Normal NONE SEEN [facility] Comment on above: Performed By: #### U MICRO, ERUR #### [facility] [address] [address] [address] Vivian Quintanilla RBC 2-5 Abnormal 0-2 [facility] Comment on above: Performed By: #### U MICRO, ERUR #### [facility] [address] [place] [address] Dr. Vivian Quintanilla WBC NONE SEEN Normal NONE SEEN [facility] Comment on above: Performed By: #### U MICRO, ERUR #### [facility] [address] [address] [address] Vivian Quintanilla Vital Signs Date Time Vital Sign Value Performing Clinician Facility 07-09-2024 09:33-0500 Body height 160 cm Boyd Desouza MD Work Phone: [facility] 07-09-2024 09:33-0500 Body mass index (BMI) [Ratio] 30.29 kg/m2 Boyd Desouza MD Work Phone: [facility] 07-09-2024 09:33-0500 Body temperature 98.4 [degF] Boyd Desouza MD Work Phone: [facility] 07-09-2024 09:33-0500 Body weight 77.56 kg Boyd Desouza MD Work Phone: [facility] 07-09-2024 09:33-0500 Diastolic blood pressure 68 mm[Hg] Boyd Desouza MD Work Phone: [facility] 07-09-2024 09:33-0500 Heart rate 94 /min Boyd Desouza MD Work Phone: [facility] 07-09-2024 09:33-0500 Respiratory rate 22 /min Boyd Desouza MD Work Phone: [facility] 07-09-2024 09:33-0500 SaO2% (BldA) [Mass fraction] 95 % Boyd Desouza MD Work Phone: [facility] 07-09-2024 09:33-0500 Systolic blood pressure 126 mm[Hg] Boyd Desouza MD Work Phone: [facility] 08-17-2023 09:47-0400 Body height 162.56 cm [facility] 08-17-2023 09:47-0400 Body mass index (BMI) [Ratio] 30.9 kg/m2 [facility] 08-17-2023 09:47-0400 Body temperature 98.9 [degF] [facility] 08-17-2023 09:47-0400 Body weight 81.64 kg [facility] 08-17-2023 09:47-0400 Heart rate 105 /min [facility] 08-17-2023 09:47-0400 Respiratory rate 18 /min [facility] 08-17-2023 09:47-0400 SaO2% (BldA) [Mass fraction] 98 % [facility] 02-26-2023 10:31-0400 Blood Pressure Location Ray LEWIS [facility] 02-26-2023 10:31-0400 Diastolic blood pressure 80 mm[Hg] Ray LEWIS [facility] 02-26-2023 10:31-0400 Heart rate 79 /min Ray LEWIS [facility] 02-26-2023 10:31-0400 Respiratory rate 16 /min Ray LEWIS [facility] 02-26-2023 10:31-0400 Systolic blood pressure 139 mm[Hg] Ray LEWIS [facility] 04-19-2022 15:28-0500 Blood Pressure Location Lia FORBES [facility] 04-19-2022 15:28-0500 Diastolic blood pressure 88 mm[Hg] Lia RICE [facility] 04-19-2022 15:28-0500 Heart rate 82 /min Lia RICE [facility] 04-19-2022 15:28-0500 Mean blood pressure 103 mm[Hg] Lia RICE [facility] 04-19-2022 15:28-0500 Respiratory rate 18 /min Lia [employer] [facility] 04-19-2022 15:28-0500 SaO2% (BldA) [Mass fraction] 97 % Lia RICE [facility] 04-19-2022 15:28-0500 Systolic blood pressure 132 mm[Hg] Lia RICE [facility] 04-19-2022 14:35-0500 Blood Pressure Location Lia RICE [facility] 04-19-2022 14:35-0500 Diastolic blood pressure 79 mm[Hg] Lia RICE [facility] 04-19-2022 14:35-0500 Heart rate 84 /min Lia RICE [facility] 04-19-2022 14:35-0500 Mean blood pressure 96 mm[Hg] Lia RICE [facility] 04-19-2022 14:35-0500 Respiratory rate 16 /min Lia RICE [facility] 04-19-2022 14:35-0500 SaO2% (BldA) [Mass fraction] 97 % Lia RICE [facility] 04-19-2022 14:35-0500 Systolic blood pressure 130 mm[Hg] Lia RICE [facility] 04-19-2022 14:30-0500 Blood Pressure Location Lia RICE [facility] 04-19-2022 14:30-0500 Body temperature 97.16 [degF] Lia RICE [facility] 04-19-2022 14:30-0500 Diastolic blood pressure 88 mm[Hg] Lia RICE [facility] 04-19-2022 14:30-0500 Heart rate 76 /min Lia [employer] [facility] 04-19-2022 14:30-0500 Mean blood pressure 102 mm[Hg] Lia RICE [facility] 04-19-2022 14:30-0500 Respiratory rate 12 /min Lia RICE [facility] 04-19-2022 14:30-0500 SaO2% (BldA) [Mass fraction] 94 % Lia RICE [facility] 04-19-2022 14:30-0500 Systolic blood pressure 130 mm[Hg] Lia RICE [facility] 04-19-2022 14:20-0500 Respiratory rate 14 /min Lia RICE [facility] 04-19-2022 14:15-0500 Respiratory rate 13 /min Lia RICE [facility] 04-19-2022 14:07-0500 Body temperature 97.16 [degF] Lia [employer] [facility] 04-19-2022 14:05-0500 Respiratory rate 5 /min Lia RICE [facility] 04-19-2022 11:48-0500 Heart rate 80 /min Lia RICE [facility] 04-19-2022 11:47-0500 Body temperature 97.52 [degF] Lia RICE [facility] 01-13-2022 10:22-0400 Body temperature 97.88 [degF] Lia RICE [facility] 01-13-2022 10:22-0400 Diastolic blood pressure 88 mm[Hg] Lia RICE [facility] 01-13-2022 10:22-0400 Heart rate 74 /min Lia RICE [facility] 01-13-2022 10:22-0400 Mean blood pressure 103 mm[Hg] Lia RICE [facility] 01-13-2022 10:22-0400 Systolic blood pressure 134 mm[Hg] Lia RICE [facility] 01-13-2022 10:21-0400 Blood Pressure Location Lia RICE [facility] 01-13-2022 10:21-0400 BP/Pulse Patient Position Lia RICE [facility] 01-13-2022 10:21-0400 Diastolic blood pressure 79 mm[Hg] Lia RICE [facility] 01-13-2022 10:21-0400 Heart rate 79 /min Lia RICE [facility] 01-13-2022 10:21-0400 Mean blood pressure 93 mm[Hg] Lia RICE [facility] 01-13-2022 10:21-0400 Respiratory rate 18 /min Lia RICE [facility] 01-13-2022 10:21-0400 SaO2% (BldA) [Mass fraction] 97 % Lia FORBES [facility] 01-13-2022 10:21-0400 Systolic blood pressure 121 mm[Hg] Lia FORBES [facility] Encounters Encounter Date Encounter Type Care Provider Facility Start: 07-14-2024 ambulatory Ray LEWIS Facili ty:[facility] [place] Start: 07-09-2024 End: 07-09-2024 Bamboo flowsheet Boyd Desouza MD Work Phone: [facility] Start: 07-09-2024 End: 07-09-2024 Bamlatoya flowsheet Boyd Desouza MD Work Phone: [facility] Start: 07-09-2024 End: 07-09-2024 Office outpatient visit 15 minutes Boyd Desouza MD Work Phone: [facility] Comment on above: Influenza A (Primary Dx) Start: 07-09-2024 End: 07-09-2024 ambulatory BOYD DESOUZA Not Available Start: 09-21-2023 End: 09-21-2023 ambulatory BOYD DESOUZA Not Available Start: 08-17-2023 End: 08-17-[address] [facility] Work Phone: Start: 08-17-2023 End: 08-17-2023 Patient encounter procedure [facility]ly [facility] Physician [facility] Work Phone: Start: 05-25-2023 End: 05-25-2023 Lab Drop off Ray LEWIS [facility] Start: 05-25-2023 End: 05-25-2023 Patient encounter procedure Ray LEWIS [facility] [place] Start: 02-26-2023 End: 02-26-2023 Patient encounter procedure Ray LEWIS [facility] Start: 05-08-2022 End: 05-09-[address] LIA FORBES Facility:[facility] Start: 04-19-2022 End: 04-19-2022 Admission to same day surgery center Lia FORBES [facility] Start: 01-28-2022 End: 01-28-[address] BOYD DESOUZA Facility:[facility] Start: 01-13-2022 End: 01-13-2022 Patient encounter procedure Lia FORBES [facility] Start: 12-07-2021 End: 01-20-2022 Pre-admission assessment [facility] Start: 12-03-2021 End: 12-03-[address] BOYD DESOUZA Facility:[facility] Start: 10-04-2021 End: 10-04-2021 Patient encounter procedure [facility] Procedures Date Procedure Procedure Detail Performing Clinician Start: 07-09-2024 STATUS COVID-19/GUME Desouza MD Work Phone: Start: 04-19-2022 Extracorporeal shockwave lithotripsy of calculus of kidney Lia FORBES Start: 01-25-2022 Extracorporeal shockwave lithotripsy of ureter Lia FORBES Abrasion, elbow area (disorder) Lia FORBES Appendectomy Lia FORBES Esophagogastroduoden oscopy gastric outlet reduction Lia FORBES Plan of Treatment Date Care Activity Detail Author Start: 01-07-2025 End: 01-07-2025 Patient encounter procedure 01/07/2025 1:00 PM EDT Office Visit [facility] [address] [place] [address] Boyd Desouza MD [address] [place] [id number] [facility] Start: 07-09-2024 End: 07-09-2024 Patient encounter procedure 07/09/2024 9:15 AM EST Office Visit [facility] [address] [place] [address] Boyd Desouza MD [address] [place] [address] Arrived [facility] Comment on above: Arrived Start: 01-13-2024 Influenza vaccination Influenz a Vaccine (#1) [facility] Immunizations Immunization Date Immunization Notes Care Provider Fa cility 06-04-2023 influenza virus vaccine, unspecified formulation Boyd Desouza MD Work Phone: [facility] 04-03-2000 hepatitis B vaccine, pediatric or pediatric/adolescent dosage Ray [employer] [facility] 02-01-2000 hepatitis B vaccine, pediatric or pediatric/adolescent dosage Ray [employer] [facility] 02-01-2000 measles, mumps and rubella virus vaccine Ray LEWIS [facility] 12-23-1997 hepatitis B vaccine, pediatric or pediatric/adolescent dosage Ray LEWIS [facility] 04-21-1988 Hib, unspecified formulation Ray LEWIS [facility] 08-10-1987 DTaP, unspecified formulation Ray LEWIS [facility] 08-10-1987 measles, mumps and rubella virus vaccine Ray LEWIS [facility] NEGATED: Highlighted row has not occurred!12-06-2021 SARS-CoV-2 mRNA (tozinameran 5y-11y) vaccine [facility] Payers Date Payer Category Payer [facility] [id number] 2022 Unknown [id number] 1986 Unknown [id number] 1986 Unknown [id number] 1986 Unknown [id number] 1986 Unknown [id number] 1986 Unknown [id number] 1986 Unknown [id number] 1959 Unknown [id number] Social History Date Type Detail Facility Tobacco smoking status [facility] Start: 09-21-2023 End: 07-09-2024 Sex Assigned At Male [facility] Start: 12-06-2021 End: 09-21-2023 Tobacco smoking status Never smoked tobacco (finding) [facility] Tobacco smoking status Never [facility] Start: 1985 Sex Assigned At Male F [facility] Start: 09-21-2023 Tobacco use and exposure Smokeless tobacco non-user [facility] Start: 09-21-2023 End: 07-09-2024 History of Social function [facility] Start: 1985 Sex assigned at Not on file [facility] Functional Status Date Assessment Result Facility 02-26-2023 Functional Status N/A [facility] 04-19-2022 Functional Status No [facility] 04-04-2022 Functional Status No [facility] 01-13-2022 Functional Status No [facility] Clinical Notes 10-04-2021 to 07-09-2024 Boyd Desouza MD - 07/09/2024 10:07 AM Ayleen Desouza MD - 07/09/2024 9:15 AM EST Note Date & Type Note Facility 07-09-2024 History of Presen t illness Narrative Associated Problem(s): Influenza A Positive for influenza A and outside time to start tamiflu. Start prednisone for inflammation. Use sudafed or other decongestants as needed. Use Robitussin or Robitussin-DM for cough. Can use afrin for congestion but no longer than 3 days. Can use Mucinex to bring up phlegm. Use Motrin or Tylenol as needed for fever, aches, or pains. Increase fluid intake and rest. Should improve over next 5-7 days and if no better or worse call for re-evaluation. Images from the original note were not included. Subjective Patient ID: Dai Estevez is a 39 y.o. male who presents for Follow-up (Cough, congestion, fever ongoing for 4 days). C/o cough, congestion, and rhinorrhea x 4 days. Temp 102. Severe fatigue and no energy. C/o body aches and severe myalgias. Frequent cough dry and nonproductive of sputum. Chest tight and SOB. Developed pain with cough and inspiration. HERNANDEZ and sinus pressure in forehead and cheeks along with postnasal drip. Ears plugged and popping. Sore throat and pain to swallow. Mild nausea. Denies recent sick contacts. Using OTC medication and mild relief. No improvement in symptoms since onset. Review of Systems Constitutional: Negative for fatigue. Respiratory: Negative for cough, shortness of breath and wheezing. Cardiovascular: Negative for chest pain and palpitations. Gastrointestinal: Negative for abdominal pain, diarrhea, nausea and vomiting. Genitourinary: Negative for dysuria. Objective Physical Exam Constitutional: General: He is not in acute distress. Appearance: Normal appearance. HENT: Head: Normocephalic. Right Ear: Tympanic membrane and ear canal normal. Left Ear: Tympanic membrane and ear canal normal. Eyes: Extraocular Movements: Extraocular movements intact. Pupils: Pupils are equal, round, and reactive to light. Cardiovascular: Rate and Rhythm: Normal rate and regular rhythm. Heart sounds: No murmur heard. No friction rub. No gallop. Pulmonary: Breath sounds: Normal breath sounds. No wheezing, rhonchi or rales. Abdominal: General: Bowel sounds are normal. There is no distension. Palpations: Abdomen is soft. Tenderness: There is no abdominal tenderness. There is no guarding or rebound. Musculoskeletal: Left lower leg: No edema. Neurological: Mental Status: He is alert. Assessment/Plan Problem List Items Addressed This Visit Influenza A - Primary Positive for influenza A and outside time to start tamiflu. Start prednisone for inflammation. Use sudafed or other decongestants as needed. Use Robitussin or Robitussin-DM for cough. Can use afrin for congestion but no longer than 3 days. Can use Mucinex to bring up phlegm. Use Motrin or Tylenol as needed for fever, aches, or pains. Increase fluid intake and rest. Should improve over next 5-7 days and if no better or worse call for re-evaluation. Relevant Medications predniSONE (Deltasone) 50 MG tablet benzonatate (Tessalon) 200 MG capsule Other Relevant Orders STATUS COVID-19/FLU documented in this encounter [facility] 02-26-2023 Hospital Discharg e instructions Patient Education 02/26/2023 11:13:37 Dietary Guidelines to Help Prevent Kidney Stones Dietary Guidelines to Help Prevent Kidney Stones Kidney stones are deposits of minerals and salts that form inside your kidneys. Your risk of developing kidney stones may be greater depending on your diet, your lifestyle, the medicines you take, and whether you have certain medical conditions. Most people can lower their chances of developing kidney stones by following the instructions below. Your dietitian may give you more specific instructions depending on your overall health and the type of kidney stones you tend to develop. What are tips for following this plan? Reading food labels Choose foods with no salt added or low-salt labels. Limit your salt (sodium) intake to less than 1,500 mg a day. Choose foods with calcium for each meal and snack. Try to eat about 300 mg of calcium at each meal. Foods that contain 200 500 mg of calcium a serving include: ?8 oz (237 mL) of milk, scanyss-egmqwzwfljqr-kiauc milk, and calcium-fortifiedfruit juice. Calcium-fortified means that calcium has been added to these drinks. ?8 oz (237 mL) of kefir, yogurt, and soy yogurt. ?4 oz (114 g) of tofu. ?1 oz (28 g) of cheese. ?1 cup (150 g) of dried figs. ?1 cup (91 g) of cooked broccoli. ?One 3 oz (85 g) can of sardines or mackerel. Most people need 1,000 1,500 mg of calcium a day. Talk to your dietitian about how much calcium is recommended for you. Shopping Buy plenty of fresh fruits and vegetables. Most people do not need to avoid fruits and vegetables, even if these foods contain nutrients that may contribute to kidney stones. When shopping for convenience foods, choose: ?Whole pieces of fruit. ?Pre-made salads with dressing on the side. ?Low-fat fruit and yogurt smoothies. Avoid buying frozen meals or prepared deli foods. These can be high in sodium. Look for foods with live cultures, such as yogurt and kefir. Choose high-fiber grains, such as whole-wheat breads, oat bran, and wheat cereals. Cooking Do not add salt to food when cooking. Place a salt shaker on the table and allow each person to add his or her own salt to taste. Use vegetable protein, such as beans, textured vegetable protein (TVP), or tofu, instead of meat in pasta, casseroles, and soups. Meal planning Eat less salt, if told by your dietitian. To do this: ?Avoid eating processed or pre-made food. ?Avoid eating fast food. Eat less animal protein, including cheese, meat, poultry, or fish, if told by your dietitian. To do this: ?Limit the number of times you have meat, poultry, fish, or cheese each week. Eat a diet free of meat at least 2 days a week. ?Eat only one serving each day of meat, poultry, fish, or seafood. ?When you prepare animal protein, cut pieces into small portion sizes. For most meat and fish, one serving is about the size of the palm of your hand. Eat at least five servings of fresh fruits and vegetables each day. To do this: ?Keep fruits and vegetables on hand for snacks. ?Eat one piece of fruit or a handful of berries with breakfast. ?Have a salad and fruit at lunch. ?Have two kinds of vegetables at dinner. Limit foods that are high in a substance called oxalate. These include: ?Spinach (cooked), rhubarb, beets, sweet potatoes, and Mont[place]grin chard. ?Peanuts. ?Potato chips, slovak fries, and baked potatoes with skin on. ?Nuts and nut products. ?Chocolate. If you regularly take a diuretic medicine, make sure to eat at least 1 or 2 servings of fruits or vegetables that are high in potassium each day. These include: ?Avocado. ?Banana. ?Malabar, prune, carrot, or tomato juice. ?Baked potato. ?Cabbage. ?Beans and split peas. Lifestyle Drink enough fluid to keep your urine pale yellow. This is the most important thing you can do. Spread your fluid intake throughout the day. If you drink alcohol: ?Limit how much you use to: ?0 1 drink a day for women who are not . ?0 2 drinks a day for men. ?Be aware of how much alcohol is in your drink. In the [place] one drink equals one 12 oz bottle of beer (355 mL), one 5 oz glass of wine (148 mL), or one 1 oz glass of hard liquor (44 mL). Lose weight if told by your health care provider. Work with your dietitian to find an eating plan and weight loss strategies that work best for you. General information Talk to your health care provider and dietitian about taking daily supplements. You may be told the following depending on your health and the cause of your kidney stones: ?Not to take supplements with vitamin C. ?To take a calcium supplement. ?To take a daily probiotic supplement. ?To take other supplements such as magnesium, fish oil, or vitamin B6. Take xsun-tgh-hjxuvdz and prescription medicines only as told by your health care provider. These include supplements. What foods should I limit? Limit your intake of the following foods, or eat them as told by your dietitian. Vegetables Spinach. Rhubarb. Beets. Canned vegetables. Pickles. Olives. Baked potatoes with skin. Grains Wheat bran. Baked goods. Salted crackers. Cereals high in sugar. Meats and other proteins Nuts. Nut butters. Large portions of meat, poultry, or fish. Salted, precooked, or cured meats, such as sausages, meat loaves, and hot dogs. Dairy Cheese. Beverages Regular soft drinks. Regular vegetable juice. Seasonings and condiments Seasoning blends with salt. Salad dressings. Soy sauce. Ketchup. Barbecue sauce. Other foods Canned soups. Canned pasta sauce. Casseroles. Pizza. Lasagna. Frozen meals. Potato chips. Turkish fries. The items listed above may not be a complete list of foods and beverages you should limit. Contact a dietitian for more information. What foods should I avoid? Talk to your dietitian about specific foods you should avoid based on the type of kidney stones you have and your overall health. Fruits Grapefruit. The item listed above may not be a complete list of foods and beverages you should avoid. Contact a dietitian for more information. Summary Kidney stones are deposits of minerals and salts that form inside your kidneys. You can lower your risk of kidney stones by making changes to your diet. The most important thing you can do is drink enough fluid. Drink enough fluid to keep your urine pale yellow. Talk to your dietitian about how much calcium you should have each day, and eat less salt and animal protein as told by your dietitian. This information is not intended to replace advice given to you by your health care provider. Make sure you discuss any questions you have with your health care provider. Document Revised: 01/09/2022 Document Reviewed: 01/09/2022 [employer]ens Patient Education 2022 Decision Pace. Follow Up Care 11/02/2022 14:39:45 With:JOSHUA EATON, Ray Eisenberg, URL Address: [facility] [address] , [place] [address]- When: Unknown Comments:Jeanne James ESWL [facility] 04-19-2022 Hospital Discharg e instructions Patient Education 04/19/2022 14:18:32 Lithotripsy, Care After Lithotripsy, Care After This sheet gives you information about how to care for yourself after your procedure. Your health care provider may also give you more specific instructions. If you have problems or questions, contact your health care provider. What can I expect after the procedure? After the procedure, it is common to have: Some blood in your urine. This should only last for a few days. Soreness in your back, sides, or upper abdomen for a few days. Blotches or bruises on your back where the pressure wave entered the skin. Pain, discomfort, or nausea when pieces (fragments) of the kidney stone move through the tube that carries urine from the kidney to the bladder (ureter). Stone fragments may pass soon after the procedure, but they may continue to pass for up to 4 8 weeks. ?If you have severe pain or nausea, contact your health care provider. This may be caused by a large stone that was not broken up, and this may mean that you need more treatment. Some pain or discomfort during urination. Some pain or discomfort in the lower abdomen or (in men) at the base of the penis. Follow these instructions at home: Medicines Take jmfe-lsh-jyjhhmi and prescription medicines only as told by your health care provider. If you were prescribed an antibiotic medicine, take it as told by your health care provider. Do not stop taking the antibiotic even if you start to feel better. Do not drive for 24 hours if you were given a medicine to help you relax (sedative). Do not drive or use heavy machinery while taking prescription pain medicine. Eating and drinking Drink enough water and fluids to keep your urine clear or pale yellow. This helps any remaining pieces of the stone to pass. It can also help prevent new stones from forming. Eat plenty of fresh fruits and vegetables. Follow instructions from your health care provider about eating and drinking restrictions. You may be instructed: ?To reduce how much salt (sodium) you eat or drink. Check ingredients and nutrition facts on packaged foods and beverages. ?To reduce how much meat you eat. Eat the recommended amount of calcium for your age and gender. Ask your health care provider how much calcium you should have. General instructions Get plenty of rest. Most people can resume normal activities 1 2 days after the procedure. Ask your health care provider what activities are safe for you. Your health care provider may direct you to lie in a certain position (postural drainage) and tap firmly (percuss) over your kidney area to help stone fragments pass. Follow instructions as told by your health care provider. If directed, strain all urine through the strainer that was provided by your health care provider. ?Keep all fragments for your health care provider to see. Any stones that are found may be sent to a medical lab for examination. The stone may be as small as a grain of salt. Keep all follow-up visits as told by your health care provider. This is important. Contact a health care provider if: You have pain that is severe or does not get better with medicine. You have nausea that is severe or does not go away. You have blood in your urine longer than your health care provider told you to expect. You have more blood in your urine. You have pain during urination that does not go away. You urinate more frequently than usual and this does not go away. You develop a rash or any other possible signs of an allergic reaction. Get help right away if: You have severe pain in your back, sides, or upper abdomen. You have severe pain while urinating. Your urine is very dark red. You have blood in your stool (feces). You cannot pass any urine at all. You feel a strong urge to urinate after emptying your bladder. You have a fever or chills. You develop shortness of breath, difficulty breathing, or chest pain. You have severe nausea that leads to persistent vomiting. You faint. Summary After this procedure, it is common to have some pain, discomfort, or nausea when pieces (fragments) of the kidney stone move through the tube that carries urine from the kidney to the bladder (ureter). If this pain or nausea is severe, however, you should contact your health care provider. Most people can resume normal activities 1 2 days after the procedure. Ask your health care provider what activities are safe for you. Drink enough water and fluids to keep your urine clear or pale yellow. This helps any remaining pieces of the stone to pass, and it can help prevent new stones from forming. If directed, strain your urine and keep all fragments for your health care provider to see. Fragments or stones may be as small as a grain of salt. Get help right away if you have severe pain in your back, sides, or upper abdomen or have severe pain while urinating. This information is not intended to replace advice given to you by your health care provider. Make sure you discuss any questions you have with your health care provider. Document Released: 05/19/2008 Document Revised: 08/11/2019 Document Reviewed: 03/21/2017 Video[employer]ens Patient Education 2020 Decision Pace. 04/19/2022 14:18:32 Post Op Patient Instructions - FT (Custom) (CUSTOM) Follow Up Care 02/28/2022 11:29:00 With:Lia FORBES Address: [address] [place] [phone]- Business (1) When:7 to 10 days Comments:Call for followup appointment [facility] 04-19-2022 Evaluation + Plan note Extrac rich from: Title:ANES POSTOP Author:Agapito Sweeney DO Date: 04/19/22 Plan Transfer/ Discharge: Patient can be discharged from PACU when criteria met. Condition good. Extracted from: Title:ANES PREOP Author:Agapito Sweeney DO Date:1 06/20/21 Plan [place] [employer]esthesiologists (ASA) physical status classification: Class II. Anesthetic Preoperative Plan Anesthesia: General. . Anesthetic plan, risks, benefits, and alternatives discussed with the patient and/or family. Patient verbalized understanding. Anesthesia risks, benefits, alternatives discussed with patient and/or family/guardians. Risks discussed including but not limited to risks of nerve damage, injury, bleeding requiring transfusion, postop pulmonary complications, nausea, vomiting, sore throat, dental/oral injury, increase/decrease in HR or blood pressure, hoarseness, muscle or joint pain, heart complications discussed. Pt aware and desires to proceed. Future Appointments Appointment Date:05/09/2022 08:30:00 AM Scheduled Provider:Lia FORBES MD Location:[facility] Appointment Type:URO Office Visit [facility]05-24-2022 Hospital Discharge instructions Patient Education 10/04/2021 10:28:51 Kidney Stones, Hstz-ml-Zsov Kidney Stones Kidney stones are rock-like masses that form inside of the kidneys. Kidneys are organs that make pee (urine). A kidney stone may move into other parts of the urinary tract, including: The tubes that connect the kidneys to the bladder (ureters). The bladder. The tube that carries urine out of the body (urethra). Kidney stones can cause very bad pain and can block the flow of pee. The stone usually leaves your body (passes) through your pee. You may need to have a doctor take out the stone. What are the causes? Kidney stones may be caused by: A condition in which certain glands make too much parathyroid hormone (primary hyperparathyroidism). A buildup of a type of crystals in the bladder made of a chemical called uric acid. The body makes uric acid when you eat certain foods. Narrowing (stricture) of one or both of the ureters. A kidney blockage that you were born with. Past surgery on the kidney or the ureters, such as gastric bypass surgery. What increases the risk? You are more likely to develop this condition if: You have had a kidney stone in the past. You have a family history of kidney stones. You do not drink enough water. You eat a diet that is high in protein, salt (sodium), or sugar. You are overweight or very overweight (obese). What are the signs or symptoms? Symptoms of a kidney stone may include: Pain in the side of the belly, right below the ribs (flank pain). Pain usually spreads (radiates) to the groin. Needing to pee often or right away (urgently). Pain when going pee (urinating). Blood in your pee (hematuria). Feeling like you may vomit (nauseous). Vomiting. Fever and chills. How is this treated? Treatment depends on the size, location, and makeup of the kidney stones. The stones will often pass out of the body through peeing. You may need to: Drink more fluid to help pass the stone. In some cases, you may be given fluids through an IV tube put into one of your veins at the hospital. Take medicine for pain. Make changes in your diet to help keep kidney stones from coming back. Sometimes, medical procedures are needed to remove a kidney stone. This may involve: A procedure to break up kidney stones using a beam of light (laser) or shock waves. Surgery to remove the kidney stones. Follow these instructions at home: Medicines Take ttri-rna-zovvcig and prescription medicines only as told by your doctor. Ask your doctor if the medicine prescribed to you requires you to avoid driving or using heavy machinery. Eating and drinking Drink enough fluid to keep your pee pale yellow. You may be told to drink at least 8 10 glasses of water each day. This will help you pass the stone. If told by your doctor, change your diet. This may include: ?Limiting how much salt you eat. ?Eating more fruits and vegetables. ?Limiting how much meat, poultry, fish, and eggs you eat. Follow instructions from your doctor about eating or drinking restrictions. General instructions Collect pee samples as told by your doctor. You may need to collect a pee sample: ?24 hours after a stone comes out. ?8 12 weeks after a stone comes out, and every 6 12 months after that. Strain your pee every time you pee (urinate), for as long as told. Use the strainer that your doctor recommends. Do not throw out the stone. Keep it so that it can be tested by your doctor. Keep all follow-up visits as told by your doctor. This is important. You may need follow-up tests. How is this prevented? To prevent another kidney stone: Drink enough fluid to keep your pee pale yellow. This is the best way to prevent kidney stones. Eat healthy foods. Avoid certain foods as told by your doctor. You may be told to eat less protein. Stay at a healthy weight. Where to find more information National Kidney Foundation (NKF): www.kidney.org [employer] (UCF): www.urologyhealth.org Contact a doctor if: You have pain that gets worse or does not get better with medicine. Get help right away if: You have a fever or chills. You get very bad pain. You get new pain in your belly (abdomen). You pass out (faint). You cannot pee. Summary Kidney stones are rock-like masses that form inside of the kidneys. Kidney stones can cause very bad pain and can block the flow of pee. The stones will often pass out of the body through peeing. Drink enough fluid to keep your pee pale yellow. This information is not intended to replace advice given to you by your health care provider. Make sure you discuss any questions you have with your health care provider. Document Released: 10/16/2008 Document Revised: 09/16/2019 Document Reviewed: 09/16/2019 Video[employer]ens Patient Education 2020 Decision Pace. Follow Up Care 09/01/2021 13:38:23 With:Sly Moreland MD, Heriberto James, URO Address: [facility] [address], [place] [address]- When: Unknown [facility] evaluation + Plan note Future Appointments Appointment Date:11/08/2021 08:15:00 AM Scheduled Provider:Heriberto Heart Jr., MD Location:[facility] Appointment Type:URO Office Visit [facility] evaluation + Plan note Future Appointments Appointment Date:01/13/2022 01:00:00 PM Scheduled Provider: Location:[facility] Appointment Type:Surgical PAT FT Appointment Date:01/25/2022 03:00:00 PM Scheduled Provider: Location:[facility] Future Appointments Appointment Date:01/25/2022 03:00:00 PM Scheduled Provider: Location:[facility] Future Appointments Appointment Date:07/09/2023 11:15:00 AM Scheduled Provider:Ray LEWIS MD Location:[facility] Appointment Type:URO Office Visit [facility] evaluation + Plan note Future Appointments Appointment Date:07/09/2023 11:15:00 AM Scheduled Provider:Ray LEWIS MD Location:[facility] Appointment Type:URO Office Visit Diagnostic Tests Pending * Calculi Analysis [facility] Diagnosis Onset Date Resolution Status Sore throat noneactive [facility] Work Phone: Evaluation note* Diagnosis Seasonal allergic rhinitis due to pollen- Primary Pain of right heel Seborrheic keratosis Viral gastroenteritis Intestinal infection due to other organism, NEC Influenza A- Primary Influenza with other respiratory manifestations [facility] N[facility] No data available for this section [facility] Hospital Discharge instructions No data available for this section [facility] No data available for this section [facility] Summary Purpose Family History No Family History Records Found Relationship Condition Age at Onset Recorded Date/T favian father Malignant neoplasm Unknown Unknown Not Specified Malignant neoplasm Unknown Advance Directives No Advanced Directives Records Found Advance Directive Response Recorded Date/ Time Advance Directives No August 16 9:40am Chief Complaint and Reason for Visit Chief Complaint Sore throat Reason for Visit Sore throat Additional Source Comments Care Team (unrecognized sect ion and content) Team Status: Active Member Role Status Dates Boyd Desouza MD Primary Care Provider Active Team Status: Inactive Member Role Status Dates Boyd Desouza MD Primary Care Provider Active S tart: August 17, 2023 End: August 17, 2023 Asya Horn APRN Attending Provider Active Start: August 17, 2023 End: August 17, 2023 Medicaid Eligibility Specialist Relationship Specialty Start Date End Date Boyd Desouza MD [address] [place] [id number] PCP - [facility] 09/10/23 Boyd Desouza MD [address] [place] [id number] PCP - [facility] 11/12/23 Medicaid Eligibility Specialist Relationship Specialty Start Date End Date Boyd Desouza MD [address] [place] [id number] PCP - [facility] 09/10/23 Boyd Desouza MD [address] [place] [id number] PCP - [facility] 11/12/23 (unrecognized sect ion and content) No Status Records FoundNo Status Records FoundNo Status Records Found INFORMATION SOURCE (unrecogn ized section and content) DATE CREATED AUTHOR 05/12/[address] [facility] DATE CREATED AUTHOR AUTHOR'S ORGANIZ ATION 07/11/2024 [facility] DATE CREATED AUTHOR AUTHOR'S ORGANIZ ATION 07/14/2024 [facility] Goals (unrecognized section and content) Goals may be documented in a n alternate section Reason for Visit (unrecogniz ed section and content) Reason Comments Follow-up Cough, congestion, f ever ongoing for 4 days FOR RECORDS PERTAINING TO PATIENTS WHO ARE OR HAVE BEEN ENROLLED IN A CHEMICAL DEPENDENCY/SUBSTANCEABUSE PROGRAM, SOME INFORMATION MAY BE OMITTED. This clinical summary was aggregated from multiple sources. Caution should be exercised in using it in the provision of clinical care. This summary normalizes information from multiple sources, and as a consequence, information in this document may materially change the coding, format and clinical context of patient data. In addition, data may be omitted in some cases. CLINICAL DECISIONS SHOULD BE BASED ON THE PRIMARY CLINICAL RECORDS. [facility] provides no warranty or guarantee of the accuracy or completeness of information in this document.
== END 2024-07-14 13:20 | disposition home or self-care (01) ==
LOC: RAD 13:20
PROVIDERS: PCP Family Medicine; Visit Provider Urology
DX: N20.0 Calculus of kidney (principal)
CPT/HCPCS: 74018

== ENCOUNTER 2024-08-02 12:14 | Emergency (ER) | payer BC, SELFPAY ==
[2024-08-02 12:17] VITALS: BP 144/88; PULSE 97; TEMP 36.7; O2SAT 98; BMI 29.3
--- OUTSIDE RECORDS SUMMARY | 2024-08-02 12:33 | XMS_ITS | CCD ---
Author Organization [facility] Care Team Providers Care Manager [employer] Name Role Phone BOYD DESOUZA Primary Care Physician LYLY, DR BOYD Aguilar Primary Care Unavailable YAZ ALDANA Admitting Rashid ALDANA, YAZ Attending Rashid ALDANA, YAZ Consulting Unavailable ANDREI, DR LIA Bhakta Admitting Unavailable ANDREI, DR LIA Bhakta Attending Unavailable LYLY, DR BOYD Aguilar Primary Care Unavailable ANDREI, DR LIA Bhakta Consulting Unavailable SYLVIA, DR CANDIE Eisenberg Consulting Unavailable LYLY, DR BOYD Aguilar Primary Care Unavailable YAZ ALDANA Consulting Unavailable YAZ ALDANA Admitting Unavailable KATYA, YAZ Attending Unavailable KARTHIKEYAN, FREDI Consulting Unavailable Boyd Desouza MD Primary Care Provider [phone] Lyly EATON, Boyd Unavailable BOYD DESOUZA Attending Unavailable BOYD DESOUZA Attending Unavailable Ray MONTERO Attending Unavailable MIRTHA, EMMY Longo Attending Yannick le Allergies Allergy Classification Reported Allergen(s) Allergy Type Date of Onset Reaction(s) Facility (20 sources) Codeine; Translations: [codeine] Drug Allergy 9 Vomiting (disorder) [facility] (1 source) Codeine Drug Allergy [facility] Repository (1 source) Codeine; Translations: [codeine sulfate] Drug Allergy [facility] Repository Medications Current Medications Medication Drug Class(es) [...] Status: Ordered benzonatate 200 mg oral capsule (3 sources) Non-narcotic Antitussive Start: 07-09-2024 take 1 [...] Active cetirizine hydrochloride 10 mg oral tablet (4 sources) Histamine-1 Receptor Antagonist Start: 09-21-2023 take 1 tablet by mouth once daily cetirizine (ZyrTEC) 10 MG tablet Indications: Seasonal allergic rhinitis due to pollen Take 1 tablet (10 mg) by mouth Daily 30 tablet 5 09/21/2023 Active fluticasone propionate 0.05 mg/actuat metered dose nasal spray (12 sources) Corticosteroid Start: 12-17-2023 fluticasone (Flonase) 50 [...] q6hr, # 20 tab(s), Refills(s) 0, [id number] Start Date: 10/04/21 Status: Ordered ketorolac tromethamine 10 mg oral tablet (2 sources) Nonsteroidal Anti-inflammatory Drug, Cyclooxygenase Inhibitor Start: 10-04-2021 take 1 tablet by mouth every six hours as needed for pain ketorolac 10 mg Tab 10 mg = 1 tab(s), Oral, q6hr, PRN for pain, # 20 tab(s), Refills(s) 0, [id number] Start Date: 10/04/21 Status: Ordered melatonin 3 mg oral tablet (9 sources) Start: 10-04-2021 take 3 mg by mouth once daily at bedtime as needed for sleep melatonin 3 mg, Oral, Once a day (at bedtime), PRN as needed for sleep, Refills(s) 0, Insomnia Start Date: 10/04/21 Status: Ordered Start: 10-04-2021 melatonin Once a day (at bedtime), Refills(s) 0 Start Date: 10/04/21 Status: Ordered potassium bicarbonate 25 meq effervescent oral tablet (5 sources) Start: 08-06-2023 Effer-K 25 MEQ effervescent tablet ALLOW 1 TABLET TO DISSOLVE IN 4 OUNCES OF WATER BEFORE DRINKING TWICE DAILY 08/06/2023 Active predniSONE 50 mg oral tablet (3 sources) Start: 07-09-2024 End: 07-15-2024 take 1 tablet by mouth once daily predniSONE (Deltasone) 50 MG tablet Indications: Influenza A Take 1 tablet (50 mg) by mouth Daily for 6 days 6 tablet 07/09/2024 07/15/2024 Active tamsulosin hydrochloride 0.4 mg oral capsule (3 sources) alpha-Adrenergi c Sedrick Start: 08-17-2023 Tamsulosin Active MG PO August 17, 2023 12:00am Start: 10-04-2021 take 1 capsule by cox monett once daily tamsulosin 0.4 mg Cap 0.4 mg = 1 cap(s), Oral, Daily, # 30 cap(s), Refills(s) 0, [id number] Start Date: 10/04/21 Status: Ordered Vitamin D3 50 mcg (2000 intl units) oral tablet, chewable (2 sources) Start: 10-04-2021 Vitamin D3 50 mcg (2000 intl units) oral tablet, chewable Refills(s) 0 Start Date: 10/04/21 Status: Ordered Completed/Discontinued Medications Medication Drug Class(es) Dates Sig (Normalized) Sig (Original) Effervescent Potassium 25 mEq oral tablet (1 source) Start: 07-09-2023 take 1 tablet by mouth twice daily Effervescent Potassium 25 mEq oral tablet 25 mEq = 1 tab(s), Oral, BID, # 60 tab(s), Refills(s) 11, Pharm[facility]: [id number], 160, cm, 07/09/23 12:45:00 EST, Height/Length Dosing, 69, kg, 07/09/23 12:45:00 EST, Weight Dosing Start Date: 07/09/23 Status: Ordered Problems Active Problems Problem Classification Problem Date Documented Da te Episodic/Chronic Abdominal pain (5 sources) Right lower quadrant pain; Translations: [Flank pain] Onset: 12-03-2021 Episodic Allergic reactions (1 source) Allergic condition; Translations: [Allergy, unspecified, initial encounter] 08-17-2023 Episodic Calculus of urinary tract (20 sources) Kidney stone; Translations: [Calculus of kidney] Onset: 10-04-2021 Episodic Genitourinary symptoms and ill-defined conditions (20 sources) Urgent desire to urinate; Translations: [Urgency of urination] Onset: 10-04-2021 Episodic Headache; including migraine (4 sources) Ophthalmic migraine; Translations: [Migraine with aura, not intractable, without status migrainosus] Onset: 09-21-2023 09-21-2023 Chronic Hyperplasia of prostate (1 source) Benign prostatic hyperplasia; Translations: [Benign prostatic hyperplasia without lower urinary tract symptoms] 08-17-2023 Chronic Influenza (5 sources) Influenza due to Influenza A virus; Translations: [Influenza due to other identified influenza virus with other respiratory manifestations] Onset: 07-09-2024 07-09-2024 Episodic Nutritional deficiencies (4 sources) Vitamin D deficiency; Translations: [Vitamin D deficiency, unspecified] Onset: 09-21-2023 09-21-2023 Chronic Other upper respiratory disease (4 sources) Allergic rhinitis due to pollen; Translations: [Allergic rhinitis due to pollen] Onset: 09-21-2023 09-21-2023 Chronic Other upper respiratory infections (1 source) Acute pharyngitis, unspecified; Translations: [Acute pharyngitis] 08-17-2023 Episodic Past or Other Problems Problem Classification Problem Date Documented Date Episodic/Chronic Fluid and electrolyte disorders (4 sources) Hypokalemia; Translations: [Hypokalemia] Onset: 09-21-2023 09-21-2023 Episodic Intestinal infection (4 sources) Viral gastroenteritis; Translations: [Viral intestinal infection, unspecified] Onset: 09-21-2023 Resolved: 07-09-2024 09-21-2023 Episodic Nausea and vomiting (4 sources) Nausea; Translations: [NAUSEA] Onset: 01-28-2022 Episodic Other aftercare (1 source) Other prison (current) drug therapy; Translations: [OTH USP CURRENT DRUG THERAPY] Onset: 02-09-2022 Episodic Other connective tissue disease (4 sources) Pain in right heel; Translations: [Pain in right foot] Onset: 09-21-2023 09-21-2023 Episodic Other skin disorders (4 sources) Seborrheic keratosis; Translations: [Other seborrheic keratosis] Onset: 09-21-2023 09-21-2023 Episodic Residual codes; unclassified (1 source) Hypothermia, not associated with low environmental temperature; Translations: [HYPOTHERMIA NOT W/LOW ENVIR TEMP] Onset: 02-09-2022 Episodic Residual codes; unclassified (4 sources) Persistent insomnia; Translations: [Insomnia, unspecified] Onset: 09-21-2023 09-21-2023 Episodic Residual codes; unclassified (4 sources) Olfactory hallucinations; Translations: [Other hallucinations] Onset: 09-21-2023 Resolved: 09-21-2023 09-21-2023 Episodic Results Test Name Value Interpretation Reference Range Facility Urology Office/Clinic Noteon 07-18-2024 Urology Office/Clinic Note Urology Office/Clinic Note Chief Complaint f/u with KUB HPI Staff 39yr old male pt here for 1yr f/u with KUB. KUB done 07/14/24 showed bilateral nephrolithiasis grossly similar to prior study. S/p L ESWL 01/25/22 and R ESWL 04/19/22 Previous Dx: kidney stones, personal history of kidney stones, flank pain *Effer-K 25mg bid Denies any blood in urine. Pt does state that he had some right flank pain yesterday but it has subsided. Review of Systems PHQ Score Initial Depression Screen Score: 0 SCORE No fever, chills, malaise, myalgia. No dysuria, pain w/ ejaculation, pain w/ BM. No blood in urine, ejaculate, or stool. No change in urgency/frequency, straining, stream changes. No discharge, odor, or change in color of urine. No perineal pain/pressure, scrotal pain, or suprapubic pain. Physical Exam Vitals & Measurements T: 37 ???C(Temporal Artery) HR: 68(Peripheral) RR: 16 BP: 121/81 HT: 63 in HT: 160 cm WT: 70.2 kg WT: 154.764 lb BMI: 27.42 General: nontoxic, NAD Mouth: moist mucosa Lungs: normal respiratory effort Cardio: regular rate, good distal perfusion Abdomen: nondistended Neurologic: Grossly normal Skin: No rashes or suspicious lesions Assessment/Plan 1. Flank pain (R10.9: Unspecified abdominal pain) Pt's biggest complaint is that if he drinks anything besides water, he develops mild-moderate bilateral flank pain which lasts about 2-3 days. He says this is life-altering and very bothersome. This has been happening for >1 yr. Not describing bladder irritation (says yes, he gets increased frequency/urgency w certain beverages, but that's not bothersome. It's actual pain in both kidneys that is bothersome. Denies bladder spasms or bladder/urethral pain). Not sure if any imaging is indicated, such as lasix renogram. Will check w PRW and advise pt sometime next week. Ordered: E&M of Est. Patient Moderate 30-39 Min 42042 2. Kidney stones (N20.0: Calculus of kidney) Pt states that he has always gotten them since he was 15, around [facility] [place] time. [1] Hx of multiple lithotripsies by RWR. S/p bilat ESWL Fall 2021. 24hr urine 05/23/23 - Total volume 1775mL. Low citric acid. Oxalate was not tested. Serum labs 05/23/23 - wnl. Stone analysis 05/25/23 - 100% [place] Ox. Drinks ~10 cups of water per day. PRW added Effer K 25mg bid on 07/09/23. TODAY: Pt continues taking the Effer K. No bothersome side effects. Needs refills. Thinks he passed a few stones in the past year, but didn't see them pass just felt like one was passing. KUB 07/14/24 - bilat stones, largest 8mm on L. Similar to previous study. Will continue annual stone monitoring. Ordered: E&M of Est. Patient Moderate 30-39 Min [id number] Orders: potassium bicarbonate, 25 mEq = 1 tab(s), Oral, BID, # 60 tab(s), Refills(s) 11, [facility] #[id number], 160, cm, 07/18/24 11:27:00 EST, Height/Length Dosing, 70.2, kg, 07/18/24 11:27:00 EST, Weight Dosing Follow-up With When Contact Information MIRTHA BOOTH, TOM Longo, URL In 1 year [address] [place] [address] Additional Instructions: Patient Education Kidney Stones, [id number] Problem List/Past Medical History Ongoing Flank pain Kidney stones Personal history of kidney stones Urinary frequency Urinary urgency Historical Ureteral stone Procedure/Surgical History ESWL - Extracorporeal shockwave lithotripsy for renal calculus (04/19/2022), ESWL (extracorporeal shockwave lithotripsy) of ureteric calculus (01/25/2022), Abrasion, elbow area, Appendectomy, EGD (esophagogastroduod enoscopy) gastric outlet reduction. Medications Effervescent Potassium 25 mEq oral tablet, 25 mEq= 1 tab(s), Oral, BID, 11 refills melatonin, 3 mg, Oral, Once a day (at bedtime), PRN Allergies codeine sulfate (Vomiting) codeine (nausea and vomiting) Social History Alcohol - Denies Alcohol Use, 01/13/2022 Never., 07/14/2024 Substance Abuse - Denies Substance Abuse, 01/13/2022 Never., 07/14/2024 Tobacco - Denies Tobacco Use, 01/13/2022 Never (less than 100 in lifetime) Tobacco Use:. Never Smokeless Tobacco Use:. Household tobacco concerns: No., 07/18/2024 Family History Kidney stones: Father. Immunizations Vaccine Date Status Comments influenza virus vaccine, inactivated 06/04/2023 Recorded SARS-CoV-2 mRNA (tozinameran 5y-11y) vac - Not Given Postpone due to refusal hepatitis B pediatric vaccine 04/03/2000 Recorded measles/mumps/rubel la virus vaccine 02/01/2000 Recorded hepatitis B pediatric vaccine 02/01/2000 Recorded hepatitis B pediatric vaccine 12/23/1997 Recorded Hib, unspecified formulation 04/21/1988 Recorded measles/mumps/rubel la virus vaccine 08/10/1987 Recorded DTaP, unspecified formulation 08/10/1987 Recorded Normal [facility] Comment on above: Result Comment: Elec tronically Signed By: TOM SHANNON PA-C\.br\Date and Time Signed: 07/18/24 12:19 EST XR ABDOMEN 1Von 07-14-2024 [place] [id number] XRay Report Signed Patient: DAI ESTEVEZ Jr. MR#: [id number] : 1985 Acct:[id number] Age/Sex: 39 / M ADM Date: 07/14/24 Loc: RAD Attending Dr: Ray Montero M.D. Ordering Physician: Ray Montero M.D. Date of Service: 07/14/24 Procedure(s): XR abdomen 1V Accession Number(s): [id number] cc: Boyd Desouza M.D.; Ray Montero M.D. [place] [address] Patient Name: DAI ESTEVEZ MRN: [id number] date: 1985 Sex: M Assigned Patient Location: RAD Current Patient Location: RAD Accession/Order Number: [id number] Exam Date: 07/14/2024 16:54 Report Date: 07/14/2024 16:54 At the request of: RAY MONTERO MD Procedure: XR abdomen 1V KUB: CLINICAL INFORMATION: Follow-up kidney stones. Bilateral flank pain. COMPARISON: KUB 02/26/2023 FINDINGS: Multiple guidewire seen within both kidneys, largest measuring 8 mm within the left kidney. Findings are similar to the prior study. Presumed vascular calcifications are noted. No bowel obstruction or free air. Osseous structures demonstrate degenerative change. XR/XR abdomen 1V IMPRESSION: BILATERAL NEPHROLITHIASIS GROSSLY SIMILAR TO THE PRIOR STUDY. Impression dictated by: Marin Dennis Jr., D.O.07/14/2024 4:54 PM Dictation Location: [place] [address] Electronically authenticated by: [id number] Y Date: 07/14/2024 16:54 Dictated By: Marin Dennis M.D. Signed By: 07/14/241656 DD/ 53 TD/TT: Right Of Way Clearer: [facility] Radiology, Radiologist, MD - 07/14/2024 [place] [address] XRay Report Signed Patient: DAI ESTEVEZ Jr. MR#: [id number] : 1985 Acct:[id number] Age/Sex: 39 / M ADM Date: 07/14/24 Loc: RAD Attending Dr: Ray Montero M.D. Ordering Physician: Ray Montero M.D. Date of Service: 07/14/24 Procedure(s): XR abdomen 1V Accession Number(s): [id number] cc: Boyd Desouza M.D.; Ray Montero M.D. The [place] [address] Patient Name: DAI ESTEVEZ MRN: [id number] date: 1985 Sex: M Assigned Patient Location: RAD Current Patient Location: RAD Accession/Order Number: [id number] Exam Date: 07/14/2024 16:54 Report Date: 07/14/2024 16:54 At the request of: RAY MONTERO MD Procedure: XR abdomen 1V KUB: CLINICAL INFORMATION: Follow-up kidney stones. Bilateral flank pain. COMPARISON: KUB 02/26/2023 FINDINGS: Multiple guidewire seen within both kidneys, largest measuring 8 mm within the left kidney. Findings are similar to the prior study. Presumed vascular calcifications are noted. No bowel obstruction or free air. Osseous structures demonstrate degenerative change. XR/XR abdomen 1V IMPRESSION: BILATERAL NEPHROLITHIASIS GROSSLY SIMILAR TO THE PRIOR STUDY. Impression dictated by: Marin Dennis Jr., D.O.07/14/2024 4:54 PM Dictation Location: [place] [address] Electronically authenticated by: [id number] Y Date: 07/14/2024 16:54 Dictated By: Marin Dennis M.D. Signed By: 07/14/241656 DD/ 53 TD/TT: Right Of Way Clearer: [facility] Radiology Study observation (narrative) [facility] XR ABDOMEN 1VOrdered By: Nelson aminogjessica Radiology on 07-14-2024 [facility] Work Phone: Laboratory - Microbiology an d Antimicrobial susceptibilityon 07-09-2024 SARS-CoV-2 (COVID-19) RNA LOLA+probe Ql (Unsp spec) Negative [facility] No Panel Informationon 07-09 FLU A Positive [facility] FLU B Negative [facility] Interpretation and review of laboratory results Abnormal [facility] XR KUB 1 VIEWon 05-08-2022 XR KUB [...] by: CANDIE WARD Date: 2022-05-08 16:08 Normal [facility] CHEMISTRYOrdered By: SYSTEM SYSTEM on 04-19-2022 Anion gap [Moles/Vol] 12 mmol/L Normal 6 - 16 mEq/L F [facility] Remisol Chloride [Moles/Vol] 105 mmol/L Normal 101 - 1 11 mmol/L FT Remisol CO2 [Moles/Vol] 26 mmol/L Normal 21 - 31 mmol/L [facility] Remisol Creatinine [Mass/Vol] 1.0 mg/dL Normal 0.5 - 1.3 mg/dL [facility] Remisol GFR/1.73 sq M.predicted among blacks MDRD (S/P/Bld) [Vol rate/Area] mL/min/1.73 m2 Normal >=59mL/min/1. 73 m2 FT Chem S GFR/1.73 sq M.predicted among non-blacks MDRD (S/P/Bld) [Vol rate/Area] mL/min/1.73 m2 Normal >=59mL/min/1. 73 m2 FT Chem S Potassium [Moles/Vol] 3.7 mmol/L Normal 3.5 - 5.3 mmol/L [facility] Remisol Sodium [Moles/Vol] 139 mmol/L Normal 135 - 145 mmol/L [facility] Remisol Urea nitrogen [Mass/Vol] 16 mg/dL Normal 5 - 21 mg/dL [facility] Remisol COAGULATIONOrdered By: Carmelina Burrell on 04-19-2022 [...] AM) Normal Negative [facility] UA Auto SS Trommald.plasma/[place] .RBC (Bld) [Mass ratio] 0-3 /HPF Normal 0-3/HPF [facility] UA Auto SS Mucus Ql (Urine sed) 2+ (04/19/22 11:46 AM) Normal [facility] UA Auto SS Nitrite Ql (U) Negative (04/19/22 11:46 AM) Normal Negative [facility] UA Auto SS pH (U) 5.5 *NA* (04/19/22 11:46 AM) Invalid Interpretation Code 5.0 - 9.0 [facility] [facility] Auto SS Protein (U) [Mass/Vol] Negative (04/19/22 11:46 AM) Normal Negative [facility] UA Auto SS Specific gravity (U) [Rel density] 1.025 *NA* (04/19/22 11:46 AM) Invalid Interpretation Code 1.005 - 1.030 [facility] [place] [place] UA Auto SS UA Spec Desc Clean Catch (04/19/22 11:46 AM) Normal [facility] [place] UA Auto SS Urobilinogen Qn (U) [id number] {Padmini'U}/dL Normal 0.0 - 1.0 EU/dL [facility] [place] [place] UA Auto SS WBC Auto Ql (U) Negative (04/19/22 11:46 AM) Normal Negative [facility] [place] [place] UA Auto SS WBC LM.HPF (Urine sed) [#/Area] 0-5 /HPF Normal 0-5/HPF [facility] [place] UA Auto SS CHEMISTRYOrdered By: SYSTEM SYSTEM on 01-13-2022 Anion gap [Moles/Vol] 12 mmol/L Normal 6 - 16 mEq/L F [facility] Remisol Calcium [Mass/Vol] 9.4 mg/dL Normal 8.9 - 11. 1 mg/dL [facility] Remisol Chloride [Moles/Vol] 105 mmol/L Normal 101 - 1 11 mmol/L [facility] Remisol CO2 [Moles/Vol] 24 mmol/L Normal 21 - 31 mmol/L [facility] Remisol Creatinine [Mass/Vol] 1.0 mg/dL Normal 0.5 - 1.3 mg/dL [facility] Remisol GFR/1.73 sq M.predicted among blacks MDRD (S/P/Bld) [Vol rate/Area] mL/min/1.73 m2 Normal >=59mL/min/1. 73 m2 [facility] [place] [place] Chem S GFR/1.73 sq M.predicted among non-blacks MDRD (S/P/Bld) [Vol rate/Area] mL/min/1.73 m2 Normal >=59mL/min/1. 73 m2 [facility] [place] [place] Chem S Glucose [Mass/Vol] 88 mg/dL Normal 55 - 199 mg/dL FT Remisol Potassium [Moles/Vol] 3.7 mmol/L Normal 3.5 - 5.3 mmol/L [facility] Remisol Sodium [Moles/Vol] 137 mmol/L Normal 135 [...] 3.5 E9/L Normal 2.0 - 7.5 E9/L [facility] HemeAutoSS HEMATOLOGYOrdered By: Shahriar Saul on 01-13-2022 Erythrocyte distribution width (RBC) [Ratio] 14.2 % Normal 10.9 - 14.2 % [facility] HemeAutoSS Hematocrit (Bld) [Volume fraction] 42.6 % Normal 37.7 - 49.0 % [facility] HemeAutoSS Hemoglobin (Bld) [Mass/Vol] 14.5 g/dL Normal 13.5 - 17.5 gm/dL [facility] HemeAutoSS MCH (RBC) [Entitic mass] 28.2 pg Normal 27.0 - 34.0 pg [facility] HemeAutoSS MCHC (RBC) [Mass/Vol] 34.0 g/dL Normal 31.4 - 36.0 gm/dL [facility] HemeAutoSS MCV (RBC) [Entitic vol] 82.9 fL Normal 80.0 - 100.0 fL [facility] HemeAutoSS Platelet mean volume (Bld) [Entitic vol] 9.4 fL Normal 6.4 - 10.8 fL [facility] HemeAutoSS Platelets (Bld) [#/Vol] 235.0 E9/L Normal 150.0 - 500.0 E9/L [facility] HemeAutoSS RBC (Bld) [#/Vol] 5.1 E12/L Normal 4.3 - 5.9 E12/L [facility] [...] AM) Normal Negative [facility] UA Auto SS [place].plasma/[place] .RBC (Bld) [Mass ratio] 0-3 /HPF Normal 0-3/HPF [facility] UA Auto SS Mucus Ql (Urine sed) Trace (01/13/22 10:40 AM) Normal [facility] UA Auto SS Nitrite Ql (U) Negative (01/13/22 10:40 AM) Normal Negative [facility] UA Auto SS pH (U) 6.0 *NA* (01/13/22 10:40 AM) Invalid Interpretation Code 5.0 - 9.0 [facility] UA Auto SS Protein (U) [Mass/Vol] Negative (01/13/22 10:40 AM) Normal Negative [facility] UA Auto SS Specific gravity (U) [Rel density] 1.020 *NA* (01/13/22 10:40 AM) Invalid Interpretation Code 1.005 - 1.030 [facility] UA Auto SS UA Spec Desc Clean Catch (01/13/22 10:40 AM) Normal [facility] [place] UA Auto SS Urobilinogen Qn (U) [id number] {Padmini'U}/dL Normal 0.0 - 1.0 EU/dL [facility] UA Auto SS WBC Auto Ql (U) Negative (01/13/22 10:40 AM) Normal Negative [facility] UA Auto SS WBC LM.HPF (Urine sed) [#/Area] 0-5 /HPF Normal 0-5/HPF [facility] UA Auto SS CBC AUTO DIFFon 12-03-2021 BASO # 0.0 103/ul Normal 0.0-0.1 [facility] Comment on above: Performed By: #### C BC #### [facility] [address] [place] [address] Dr. Vivian Quintanilla Basophils/100 WBC (Bld) 0.3 % Normal 0.2-2.0 [facility] Comment on above: Performed By: #### C BC #### [facility] [address] [place] [address] Dr. Vivian Quintanilla EO # 0.2 103/ul Normal 0.0-0.7 [facility] Comment on above: Performed By: #### C BC #### [facility] [address] [place] [address] Dr. Vivian Quintanilla Eosinophils/100 WBC (Bld) 3.3 % Normal 0.9-7.0 [facility] Comment on above: Performed By: #### C BC #### [facility] [address] [place] [address] Dr. Vivian Quintanilla Erythrocyte distribution width (RBC) [Ratio] 13.4 % Normal 11.0-15.0 [facility] Comment on above: Performed By: #### C BC #### [facility] [address] [place] [address] Dr. Vivian Quintanilla Hematocrit (Bld) [Volume fraction] 43.2 % Normal 42.0-54.0 [facility] Comment on above: Performed By: #### C BC #### [facility] [address] [place] [address] Dr. Vivian Quintanilla Hemoglobin (Bld) [Mass/Vol] 14.3 g/dL Normal 14.0-18.0 [facility] Comment on above: Performed By: #### C BC #### [facility] [address] [place] [address] Dr. Vivian Quintanilla IG # 0.01 10e3/ul Normal 0.00-0.03 [facility] Comment on above: Performed By: #### C BC #### [facility] [address] [place] [address] Dr. Vivian Quintanilla IG % 0.2 % Normal 0.0-0.5 [facility] Comment on above: Performed By: #### C BC #### [facility] [address] [place] [address] Dr. Vivian Quintanilla LYMPH # 2.2 103/ul Normal 1.2-3.8 [facility] Comment on above: Performed By: #### C BC #### [facility] [address] [place] [address] Dr. Vivian Quintanilla Lymphocytes/100 WBC (Bld) 35.2 % Normal 20.5-60.0 [facility] Comment on above: Performed By: #### C BC #### [facility] [address] [place] [address] Dr. Vivian Quintanilla MANUAL DIFF REQ NO Normal [facility] Comment on above: Performed By: #### C BC #### [facility] [address] [place] [address] Dr. Vivian Quintanilla MCH (RBC) [Entitic mass] 28.1 pg Normal 25.9-34.0 [facility] Comment on above: Performed By: #### C BC #### [facility] [address] [place] [address] Dr. Vivian Quintanilla MCHC (RBC) [Mass/Vol] 33.1 g/dL Normal 29.9-35.2 [facility] Comment on above: Performed By: #### C BC #### [facility] [address] [place] [address] Dr. Vivian Quintanilla MCV (RBC) [Entitic vol] 84.9 fL Normal 80.0-94.0 [facility] Comment on above: Performed By: #### C BC #### [facility] [address] [place] [address] Dr. Vivian Quintanilla MONO # 0.3 103/ul Normal 0.3-0.8 [facility] Comment on above: Performed By: #### C BC #### [facility] [address] [place] [address] Dr. Vivian Quintanilla Monocytes/100 WBC (Bld) 5.2 % Normal 1.7-12.0 [facility] Comment on above: Performed By: #### C BC #### [facility] [address] [place] [address] Dr. Vivian Quintanilla NEUT # 3.4 103/ul Normal 1.4-6.5 [facility] Comment on above: Performed By: #### C BC #### [facility] [address] [place] [address] Dr. Vivian Qunitanilla Neutrophils/100 WBC (Bld) 55.8 % Normal 43.0-75.0 [facility] Comment on above: Performed By: #### C BC #### [facility] [address] [place] [address] Dr. Vivian Quintanilla Platelet mean volume (Bld) [Entitic vol] 10.4 fL Normal 9.5-13.5 [facility] Comment on above: Performed By: #### C BC #### [facility] [address] [place], [place] [address] Dr. Vivian Quintanilla PLT 241 103/ul Normal 150-450 [facility] Comment on above: Performed By: #### C BC #### [facility] [address] [place], [place] [address] Dr. Vivian Quintanilla RBC 5.09 106/ul Normal 4.70-6.10 [facility] Comment on above: Performed By: #### C BC #### [facility] [address] [place], [place] [address] Dr. Vivian Quintanilla WBC 6.1 103/ul Normal 4.0-11.0 [facility] Comment on above: Performed By: #### C BC #### [facility] [address] [place], [place] [address] ABD/PELVIS WO CONon [...] FREDI NAPIER Date: 2021-12-03 14:00 Normal [facility] ER URINE PROFILEon 2 Bilirubin Ql (U) Negative Normal NEGATIVE [facility] Comment on above: Performed By: #### U MICRO, ERUR #### [facility] [address] [place] [address] Dr. Vivian Quintanilla Clarity (U) CLEAR Normal CLEAR [facility] Comment on above: Performed By: #### U MICRO, ERUR #### [facility] [address] [place] [address] Dr. Vivian Quintanilla Color (U) YELLOW Normal YELLOW [facility] Comment on above: Performed By: #### U MICRO, ERUR #### [facility] [address] [place] [address] [address] Vivian Quintanilla ERUAHD A micrscopic examination will be performed if indicated. Normal [facility] Comment on above: Performed By: #### U MICRO, ERUR #### [facility] [address] [place] [address] Dr. Vivian Quintanilla Glucose Ql (U) Negative Normal NEGATIVE [facility] Comment on above: Performed By: #### U MICRO, ERUR #### [facility] [address] [place] [address] [address] Vivian Quintanilla Hemoglobin Ql (U) SMALL Abnormal NEGATIVE [facility] Comment on above: Performed By: #### U MICRO, ERUR #### [facility] [address] [place] [address] [address] Vivian Quintanilla Ketones Ql (U) Negative Normal NEGATIVE [facility] Comment on above: Performed By: #### U MICRO, ERUR #### [facility] [address] [place] [address] Dr. Vivian Quintanilla LEUKOCYTES Negative Normal NEGATIVE [facility] Comment on above: Performed By: #### U MICRO, ERUR #### [facility] [address] [place] [address] [address] Vivian Quintanilla Nitrite Ql (U) Negative Normal NEGATIVE [facility] Comment on above: Performed By: #### U MICRO, ERUR #### [facility] [address] [place] [address] [address] Vivian Quintanilla pH (U) 6.0 [pH] Normal 5-9 [facility] Comment on above: Performed By: #### U MICRO, ERUR #### [facility] [address] [place] [address] Dr. Vivian Quintanilla SPEC GRAVITY 1.025 Normal 1.005-<=1.025 [facility] Comment on above: Performed By: #### U MICRO, ERUR #### [facility] [address] [place] [address] Dr. Vivian Quintanilla UA PROTEIN Negative Normal NEGATIVE/ TRACE [facility] Comment on above: Performed By: #### U MICRO, ERUR #### [facility] [address] [place] [address] Dr. Vivian Quintanilla UR MICRO IND INDICATED Normal [facility] Comment on above: Performed By: #### U MICRO, ERUR #### [facility] [address] [place] [address] Dr. Vivian Quintanilla Urobilinogen Qn (U) 0.2 {Padmini'U}/dL Normal 0.2 - 1. 0 [facility] Comment on above: Performed By: #### U MICRO, ERUR #### [facility] [address] [place] [address] Dr. Vivian Quintanilla LIPASEon 12-03-2021 Lipase [Catalytic activity/Vol] 108.0 U/L Normal 73.0-393.0 [facility] Comment on above: Performed By: #### C MP, LIPA #### [facility] [address] [place] [address] Dr. Vivian Quintanilla PROF 14(COMP METB)on 07-23-2 022 Albumin [Mass/Vol] 3.7 g/dL Normal 3.4-5.0 [facility] Comment on above: Performed By: #### C MP, LIPA #### [facility] [address] [place] [address] [address] Vivian Quintanilla Albumin/Globulin [Mass ratio] 1.1 {ratio} Normal [facility] Comment on above: Performed By: #### C MP, LIPA #### [facility] [address] [place] [address] [address] Vivian Quintanilla ALP [Catalytic activity/Vol] 72 U/L Normal 46-116 [facility] Comment on above: Performed By: #### C MP, LIPA #### [facility] [address] [place] [address] Dr. Vivian Quintanilla ALT [Catalytic activity/Vol] 45 U/L Normal 16-63 [facility] Comment on above: Performed By: #### C MP, LIPA #### [facility] [address] [place] [address] [address] Vivian Quintanilla Anion gap [Moles/Vol] 11.5 mmol/L Normal [facility] Comment on above: Performed By: #### C MP, LIPA #### [facility] [address] [place] [address] Dr. Vivian Quintanilla AST [Catalytic activity/Vol] 19 U/L Normal 15-37 [facility] Comment on above: Performed By: #### C MP, LIPA #### [facility] [address] [place] [address] [address] Vivian Quintanilla Bilirubin [Mass/Vol] 0.5 mg/dL Normal 0.2-1.0 [facility] Comment on above: Performed By: #### C MP, LIPA #### [facility] [address] [place] [address] [address] Vivian Quintanilla Calcium [Mass/Vol] 8.9 mg/dL Normal 8.5-10.1 [facility] Comment on above: Performed By: #### C MP, LIPA #### [facility] [address] [place] [address] [address] Vivian Quintanilla Chloride [Moles/Vol] 106 mmol/L Normal 98-107 [facility] Comment on above: Performed By: #### C MP, LIPA #### [facility] [address] [place] [address] Dr. Vivian Quintanilla CO2 [Moles/Vol] 26.1 mmol/L Normal 21.0-32.0 [facility] Comment on above: Performed By: #### C MP, LIPA #### [facility] [address] [place] [address] Dr. Vivian Quintanilla Creatinine [Mass/Vol] 1.24 mg/dL Normal 0.70-1.30 [facility] Comment on above: Performed By: #### C MP, LIPA #### [facility] [address] [place] [address] Dr. Vivian Quintanilla EGFR-AF NIUEAN >60 Normal >=60 [facility] Comment on above: Performed By: #### C MP, LIPA #### [facility] [address] [place] [address] Dr. Vivian Quintanilla EGFR-NON AF NIUEAN >60 Normal >=60 [facility] Comment on above: Performed By: #### C MP, LIPA #### [facility] [address] [place] [address] Dr. Vivian Quintanilla Globulin (S) [Mass/Vol] 3.4 g/dL Normal [facility] Comment on above: Performed By: #### C MP, LIPA #### [facility] [address] [place] [address] Dr. Vivian Quintanilla Glucose [Mass/Vol] 147 mg/dL Critically high 74-106 T [facility] Comment on above: Performed By: #### C MP, LIPA #### [facility] [address] [place] [address] Dr. Vivian Quintanilla Potassium [Moles/Vol] 3.6 mmol/L Normal 3.5-5.1 [facility] Comment on above: Performed By: #### C MP, LIPA #### [facility] [address] [place] [address] Dr. Vivian Quintanilla Protein [Mass/Vol] 7.1 g/dL Normal 6.4-8.2 [facility] Comment on above: Performed By: #### C MP, LIPA #### [facility] [address] [place] [address] Dr. Vivian Quintanilla Sodium [Moles/Vol] 140 mmol/L Normal 136-145 [facility] Comment on above: Performed By: #### C MP, LIPA #### [facility] [address] [place] [address] Dr. Vivian Quintanilla Urea nitrogen [Mass/Vol] 11.0 mg/dL Normal 7.0-18.0 [facility] Comment on above: Performed By: #### C MP, LIPA #### [facility] [address] [place] [address] Dr. Vivian Quintanilla Urea nitrogen/Creatinine [Mass ratio] 8.9 mg/mg Normal [facility] Comment on above: Performed By: #### C MP, LIPA #### [facility] [address] [place] [address] Dr. Vivian Quintanilla URINE MICROSCOPIC ONLYon BACTERIA NONE SEEN Normal NONE SEEN [facility] Comment on above: Performed By: #### U MICRO, ERUR #### [facility] [address] [place] [address] Dr. Vivian Quintanilla Bacteria identified Cx Nom (U) NOT INDICATED Normal [facility] Comment on above: Performed By: #### U MICRO, ERUR #### [facility] [address] [place] [address] Dr. Vivian Quintanilla CAST NONE SEEN Normal NONE SEEN [facility] Comment on above: Performed By: #### U MICRO, ERUR #### [facility] [address] [place] [address] Dr. Vivian Quintanilla Crystals LM Nom (Urine sed) NONE SEEN Normal NONE SEEN [facility] Comment on above: Performed By: #### U MICRO, ERUR #### [facility] [address] [place] [address] Dr. Vivian Quintanilla Epithelial cells LM Ql (Urine sed) FEW Abnormal NONE SEEN /RARE [facility] Comment on above: Performed By: #### U MICRO, ERUR #### [facility] [address] [place] [address] [address] Vivian Quintanilla MUCOUS NONE SEEN Normal NONE SEEN [facility] Comment on above: Performed By: #### U MICRO, ERUR #### [facility] [address] [place] [address] [address] Vivian Quintanilla RBC 2-5 Abnormal 0-2 [facility] Comment on above: Performed By: #### U MICRO, ERUR #### [facility] [address] [place] [address] [address] Vivian Quintanilla WBC NONE SEEN Normal NONE SEEN [facility] Comment on above: Performed By: #### U MICRO, ERUR #### [facility] [address] [place] [address] [address] Vivian Quintanilla Vital Signs Date Time Vital Sign Value Performing Clinician Facility 07-09-2024 09:33-0500 Body height 160 cm Boyd Desouza MD Work Phone: [facility] 07-09-2024 09:33-0500 Body mass index (BMI) [Ratio] 30.29 kg/m2 Boyd Desouza MD Work Phone: [facility] 07-09-2024 09:33-0500 Body temperature 98.4 [degF] Boyd Desouza MD Work Phone: [facility] 07-09-2024 09:33-0500 Body weight 77.56 kg Boyd Desouza MD Work Phone: [facility] 07-09-2024 09:33-0500 Diastolic blood pressure 68 mm[Hg] Boyd Desouza MD Work Phone: [facility] 07-09-2024 09:33-0500 Heart rate 94 /min Boyd Desouza MD Work Phone: [facility] 07-09-2024 09:33-0500 Respiratory rate 22 /min Boyd Desouza MD Work Phone: [facility] 02-26-2025 09:33-0500 SaO2% (BldA) [Mass fraction] 95 % Boyd Desouza MD Work Phone: [facility] 07-09-2024 09:33-0500 Systolic blood pressure 126 mm[Hg] Boyd Desouza MD Work Phone: [facility] 08-17-2023 09:47-0400 Body height 162.56 cm [facility] 08-17-2023 09:47-0400 Body mass index (BMI) [Ratio] 30.9 kg/m2 [facility] 08-17-2023 09:47-0400 Body temperature 98.9 [degF] [facility] 08-17-2023 09:47-0400 Body weight 81.64 kg [facility] 08-17-2023 09:47-0400 Heart rate 105 /min [facility] 08-17-2023 09:47-0400 Respiratory rate 18 /min [facility] 08-17-2023 09:47-0400 SaO2% (BldA) [Mass fraction] 98 % [facility] 02-26-2023 10:31-0400 Blood Pressure Location Ray MONTERO [facility] 02-26-2023 10:31-0400 Diastolic blood pressure 80 mm[Hg] Ray MONTERO [facility] 02-26-2023 10:31-0400 Heart rate 79 /min Ray MONTERO [facility] 02-26-2023 10:31-0400 Respiratory rate 16 /min Ray MONTERO [facility] 02-26-2023 10:31-0400 Systolic blood pressure 139 mm[Hg] Ray MONTERO [facility] 04-19-2022 15:28-0500 Blood Pressure Location [facility] 04-19-2022 15:28-0500 Diastolic blood pressure 88 mm[Hg] [facility] 04-19-2022 15:28-0500 Heart rate 82 /min [facility] 04-19-2022 15:28-0500 Mean blood pressure 103 mm[Hg] [facility] 04-19-2022 15:28-0500 Respiratory rate 18 /min [facility] 04-19-2022 15:28-0500 SaO2% (BldA) [Mass fraction] 97 % [facility] 04-19-2022 15:28-0500 Systolic blood pressure 132 mm[Hg] [facility] 04-19-2022 14:35-0500 Blood Pressure Location [facility] 04-19-2022 14:35-0500 Diastolic blood pressure 79 mm[Hg] [facility] 04-19-2022 14:35-0500 Heart rate 84 /min [facility] 04-19-2022 14:35-0500 Mean blood pressure 96 mm[Hg] [facility] 04-19-2022 14:35-0500 Respiratory rate 16 /min [facility] 04-19-2022 14:35-0500 SaO2% (BldA) [Mass fraction] 97 % [facility] 04-19-2022 14:35-0500 Systolic blood pressure 130 mm[Hg] [facility] 04-19-2022 14:30-0500 Blood Pressure Location [facility] 04-19-2022 14:30-0500 Body temperature 97.16 [degF] [facility] 04-19-2022 14:30-0500 Diastolic blood pressure 88 mm[Hg] [facility] 04-19-2022 14:30-0500 Heart rate 76 /min [facility] 04-19-2022 14:30-0500 Mean blood pressure 102 mm[Hg] [facility] 04-19-2022 14:30-0500 Respiratory rate 12 /min [facility] 04-19-2022 14:30-0500 SaO2% (BldA) [Mass fraction] 94 % [facility] 04-19-2022 14:30-0500 Systolic blood pressure 130 mm[Hg] [facility] 04-19-2022 14:20-0500 Respiratory rate 14 /min [facility] 04-19-2022 14:15-0500 Respiratory rate 13 /min [facility] 04-19-2022 14:07-0500 Body temperature 97.16 [degF] [facility] 04-19-2022 14:05-0500 Respiratory rate 5 /min [facility] 04-19-2022 11:48-0500 Heart rate 80 /min [facility] 04-19-2022 11:47-0500 Body temperature 97.52 [degF] [facility] 01-13-2022 10:22-0400 Body temperature 97.88 [degF] [facility] 01-13-2022 10:22-0400 Diastolic blood pressure 88 mm[Hg] [facility] 01-13-2022 10:22-0400 Heart rate 74 /min [facility] 01-13-2022 10:22-0400 Mean blood pressure 103 mm[Hg] [facility] 01-13-2022 10:22-0400 Systolic blood pressure 134 mm[Hg] [facility] 01-13-2022 10:21-0400 Blood Pressure Location [facility] 01-13-2022 10:21-0400 BP/Pulse Patient Position [facility] 01-13-2022 10:21-0400 Diastolic blood pressure 79 mm[Hg] [facility] 01-13-2022 10:21-0400 Heart rate 79 /min [facility] 01-13-2022 10:21-0400 Mean blood pressure 93 mm[Hg] [facility] 01-13-2022 10:21-0400 Respiratory rate 18 /min [facility] 01-13-2022 10:21-0400 SaO2% (BldA) [Mass fraction] 97 % [facility] 01-13-2022 10:21-0400 Systolic blood pressure 121 mm[Hg] [facility]ia FORBES [facility] Encounters Encounter Date Encounter Type Care Provider Facility Start: 07-18-2024 End: 07-18-2024 ambulatory EMMY SHANNON Facility:[facility] Start: 07-14-2024 End: 07-14-2024 Clinisync Result Encounter Generic External Data Provider [facility] Unsolicited Start: 07-14-2024 End: 07-14-2024 Clinisync Result Encounter Generic External Data Provider [facility] External [facility] Unsolicited Start: 07-14-2024 End: 07-14-2024 ambulatory Ray MONTERO Facility:[facility] Start: 07-14-2024 End: 07-14-2024 Patient encounter procedure Ray Elgin JOSHUA [facility] Start: 07-09-2024 End: 07-09-2024 Bamboo flowsheet Boyd Desouza MD Work Phone: [facility] Start: 07-09-2024 End: 07-09-2024 Morena flowsnate Desouza MD Work Phone: [facility] Start: 07-09-2024 End: 07-09-2024 Office outpatient visit 15 minutes Boyd Desouza MD Work Phone: [facility] Comment on above: Influenza A (Primary Dx) Start: 07-09-2024 End: 07-09-2024 ambulatory BOYD DESOUZA Not Available Start: 09-21-2023 End: 09-21-2023 ambulatory BOYD DESOUZA Not Available Start: 08-17-2023 End: 08-17-2023 ambulatory [facility] Work Phone: Start: 08-17-2023 End: 08-17-2023 Patient encounter procedure [facility] Physician [facility] Work Phone: Start: 05-25-2023 End: 05-25-2023 Lab Drop off Ray MONTERO [facility] Start: 05-25-2023 End: 05-25-2023 Patient encounter procedure Ray MONTERO [facility] Start: 02-26-2023 End: 02-26-2023 Patient encounter procedure Ray MONTERO [facility] Start: 05-08-2022 End: 05-09-[address] LIA FORBES Facility:[facility] Start: 04-19-2022 End: 04-19-2022 Admission to same day surgery center Lia FORBES [facility] Start: 01-28-2022 End: 01-28-[address] BOYD DESOUZA Facility:[facility] Start: 01-13-2022 End: 01-13-2022 Patient encounter procedure Lia FORBES [facility] Start: 12-07-2021 End: 01-20-2022 Pre-admission assessment [facility] Start: 12-03-2021 End: 12-03-[address] BOYD DESOUZA Facility:[facility] Start: 10-04-2021 End: 10-04-2021 Patient encounter procedure [facility] Procedures Date Procedure Procedure Detail Performing Clinician Start: 07-14-2024 XR ABDOMEN 1V Generic External Data Provider Start: 07-09-2024 STATUS COVID-19/GUME Desouza MD Work [...] procedure 01/07/2025 1:00 PM EDT Office Visit [facility] [address] [place] [id number] Boyd Desouza MD [address] [place] [id number] [facility] Start: 07-09-2024 End: 07-09-2024 Patient encounter procedure 07/09/2024 9:15 AM EST [facility] [address] [place] [id number] Boyd Desouza MD [address] [place] [id number] Arrived [facility] Comment on above: Arrived Start: 01-13-2024 Influenza vaccination Influenz a Vaccine (#1) [facility] Immunizations Immunization Date Immunization Notes Care Provider Fa cility 06-04-2023 influenza virus vaccine, unspecified formulation Boyd Desouza MD Work Phone: [facility] 04-03-2000 hepatitis B vaccine, pediatric or pediatric/adolescent dosage Ray JOSHUA [facility] 02-01-2000 hepatitis B vaccine, pediatric or pediatric/adolescent dosage Ray MONTERO [facility] 02-01-2000 measles, mumps and rubella virus vaccine Ray MONTERO [facility] 12-23-1997 hepatitis B vaccine, pediatric or pediatric/adolescent dosage Ray MONTERO [facility] 04-21-1988 Hib, unspecified formulation Ray MONTERO [facility] 08-10-1987 DTaP, unspecified formulation Ray MONTERO [facility] 08-10-1987 measles, mumps and rubella virus vaccine Ray MONTERO [facility] NEGATED: Highlighted row has not occurred!12-06-2021 SARS-CoV-2 mRNA (tozinameran 5y-11y) vaccine [facility] Payers Date Payer Category Payer [facility] [id number] 2022 Unknown [id number] 1986 Unknown [id number] 1986 Unknown [id number] 1986 Unknown [id number] 1986 Unknown [id number] 1986 Unknown [id number] 1986 Unknown [id number] 1986 Unknown [id number] 1959 Unknown [id number] Social History Date Type Detail Facility Tobacco smoking status [facility] Start: 09-21-2023 End: 07-09-2024 Sex Assigned At Male [facility] Start: 12-06-2021 End: 07-14-2024 Tobacco smoking status Never smoked tobacco (finding) [facility] Tobacco smoking status Never [facility] Start: 1985 Sex Assigned At Male [facility] Start: 09-21-2023 Tobacco use and exposure Smokeless tobacco non-user [facility] Start: 09-21-2023 End: 07-09-2024 History of Social function [facility] Start: 1985 Sex assigned at Not on file [facility] Functional Status Date Assessment Result Facility 02-26-2023 Functional Status N/A [facility] 04-19-2022 Functional Status No [facility] 04-04-2022 Functional Status No [facility] 01-13-2022 Functional Status No [facility] Clinical Notes 10-04-2021 to 07-18-2024 Boyd Desouza MD - 07/09/2024 10:07 AM Ayleen Desouza MD - 07/09/2024 9:15 AM EST Note Date & Type Note Facility 07-18-2024 Note Patient Education Urology Kidney Stones Kidney stones are rock-like masses that form inside of the kidneys. Kidneys are organs that make pee (urine). A kidney stone may move into other parts of the urinary tract, including: ??? The tubes that connect the kidneys to the bladder (ureters). ??? The bladder. ??? The tube that carries urine out of the body (urethra). Kidney stones can cause very bad pain and can block the flow of pee. The stone usually leaves your body through your pee. A doctor may need to take out the stone. What are the causes? Kidney stones may be caused by: ??? Too much calcium in the body. This may be caused by too much parathyroid hormone in the blood. ??? Uric acid crystals in the bladder. The body makes uric acid when you eat certain foods. ??? Narrowing of one or both of the ureters. ??? A kidney blockage that you were born with. ??? Past surgery on the kidney or the ureters. What increases the risk? You are more likely to develop this condition if: ??? You have had a kidney stone in the past. ??? Other people in your family have had kidney stones. ??? You do not drink enough water. ??? You eat a diet that is high in protein, salt (sodium), or sugar. ??? You are very overweight (obese). What are the signs or symptoms? Symptoms of a kidney stone may include: ??? Pain in the side of the belly, right below the ribs. Pain usually spreads to the groin. ??? Needing to pee often or right away. ??? Pain when peeing. ??? Blood in your pee. ??? Feeling like you may vomit (nauseous). ??? Vomiting. ??? Fever and chills. How is this treated? Treatment depends on the size, location, and makeup of the kidney stones. The stones will often pass out of the body when you pee. You may need to: ??? Drink more fluid to help pass the stone. ? In some cases, you may be given fluids through an IV tube at the hospital. ??? Take medicine for pain. ??? Change your diet to help keep kidney stones from coming back. Sometimes, you may need: ??? A procedure to break up kidney stones using a beam of light (laser) or shock waves. ??? Surgery to remove the kidney stones. Follow these instructions at home: Medicines ??? Take caic-mfd-stgfoit and prescription medicines only as told by your doctor. ??? Ask your doctor if the medicine prescribed to you requires you to avoid driving or using machinery. Eating and drinking ??? Drink enough fluid to keep your pee pale yellow. ? You may be told to drink at least 8?10 glasses of water each day. This will help you pass the stone. ??? If told by your doctor, change your diet. You may be told to: ? Limit how much salt you eat. ? Eat more fruits and vegetables. ? Limit how much meat, poultry, fish, and eggs you eat. ??? Follow instructions from your doctor about what you may eat and drink. General instructions ??? Collect pee samples as told by your doctor. You may need to collect a pee sample: ? 24 hours after a stone comes out. ? 8?12 weeks after a stone comes out, and every 6?12 months after that. ??? Strain your pee every time you pee. Use the strainer that your doctor recommends. ??? Do not throw out the stone. Keep it so that it can be tested by your doctor. ??? Keep all follow-up visits. You may need X-rays and ultrasounds to make sure the stone has come out. How is this prevented? To prevent another kidney stone: ??? Drink enough fluid to keep your pee pale yellow. This is the best way to prevent kidney stones. ??? Eat healthy foods. ??? Avoid certain foods as told by your doctor. You may be told to eat less protein. ??? Stay at a healthy weight. Where to find more information ??? National Kidney Foundation (NKF): kidney.org ??? Urology Care Foundation (UCF): urologyhealth.org Contact a doctor if: ??? You have pain that gets worse or does not get better with medicine. Get help right away if: ??? You have a fever or chills. ??? You get very bad pain. ??? You get new pain in your belly. ??? You faint. ??? You cannot pee. This information is not intended to replace advice given to you by your health care provider. Make sure you discuss any questions you have with your health care provider. Document Revised: 12/22/2022 Document Reviewed: 12/22/2022 BroadClip Patient Education ? 2023 TinyTap. [facility] 07-09-2024 History of Presen t illness Narrative [...] Orders STATUS COVID-19/FLU documented in this encounter [facility] 07-09-2023 Hospital Discharg e instructions Follow Up Care 07/09/2023 13:36:55 With:JOSHUA EATON, Ray Eisenberg, URL Address: [facility] [address] , [place] [address]- [phone] When: Unknown [facility] 02-26-2023 Hospital Discharg e instructions Patient Education [...] include: ?8 oz (237 mL) of milk, rntipgw-hkaixahgedpq-tzkjf milk, and calcium-fortifiedfruit juice. Calcium-fortified means that [...] ?Spinach (cooked), rhubarb, beets, sweet potatoes, and Dominican chard. ?Peanuts. ?Potato chips, nepalese fries, and baked potatoes with skin on. ?Nuts and nut products. ?Chocolate. If you regularly take a diuretic medicine, make sure to eat at least 1 or 2 servings of fruits or vegetables that are high in potassium each day. These include: ?Avocado. ?Banana. ?Lyerly, prune, carrot, or tomato juice. ?Baked potato. [...] magnesium, fish oil, or vitamin B6. Take ydsp-eox-jcmhpqf and prescription medicines only as told by [...] Casseroles. Pizza. Lasagna. Frozen meals. Potato chips. Hungarian fries. The items listed above may not [...] provider. Document Revised: 01/09/2022 Document Reviewed: 01/09/2022 Elsevier Patient Education 2022 TinyTap. Follow Up Care 11/02/2022 14:39:45 With:JOSHUA EATON, ANA Mims Address: [facility] [address], [place] [address]- When: Unknown Comments:Jeanne James ESWL [facility] [place] 04-19-2022 Hospital Discharg e instructions Patient Education [...] Follow these instructions at home: Medicines Take kpbo-mbh-trhagzf and prescription medicines only as told by [...] 05/19/2008 Document Revised: 08/11/2019 Document Reviewed: 03/21/2017 BroadClip Patient Education 2020 [employer]OOK [employer] [place] 04/19/2022 14:18:32 Post Op Patient Instructions - FT (Custom) (CUSTOM) Follow Up Care 02/28/2022 11:29:00 With:Lia FORBES Address: [address] [place], [place] [id number] [facility] () When:7 to 10 days Comments:Call for followup appointment [facility] 04-19-2022 Evaluation + Plan note Extrac rich from: Title:SERGIO POSTOP Author:Agapito Sweeney DO Date: 04/19/22 Plan Transfer/ Discharge: Patient can be discharged from PACU when criteria met. Condition good. Extracted from: Title:SERGIO PREOP Author:Agapito Sweeney DO Date:06/20/21 Plan [place] [employer] Anesthesiologists (ASA) physical status classification: [...] 08:30:00 AM Scheduled Provider:Lia FORBES MD Location:[facility] Appointment Type:URO Office Visit [facility]05-24-2022 Hospital Discharge instructions Patient Education 10/04/2021 10:28:51 Kidney Stones, Xqrq-cq-Sesx Kidney Stones Kidney stones are rock-like masses [...] Follow these instructions at home: Medicines Take tejf-wmf-ucilerg and prescription medicines only as told by [...] 10/16/2008 Document Revised: 09/16/2019 Document Reviewed: 09/16/2019 BroadClip Patient Education 2020 TinyTap. Follow Up Care 09/01/2021 13:38:23 With:Sly Moreland MD, Heriberto James, URO Address: [facility] [address], [place] [address]- When: Unknown [facility] evaluation + Plan note Future Appointments Appointment Date:11/08/2021 08:15:00 AM Scheduled Provider:Heribetro Heart Jr., MD Location:[facility] Appointment Type:URO Office Visit [facility] evaluation + Plan note Future Appointments Appointment Date:01/13/2022 01:00:00 PM Scheduled Provider: Location:[facility] Appointment Type:Surgical PAT FT Appointment Date:01/25/2022 03:00:00 PM Scheduled Provider: Location:[facility] Future Appointments Appointment Date:01/25/2022 03:00:00 PM Scheduled Provider: Location:[facility] Future Appointments Appointment Date:07/09/2023 11:15:00 AM Scheduled Provider:Ray MONTERO MD Location:[facility] Appointment Type:URO Office Visit [facility] evaluation + Plan note Future Appointments Appointment Date:07/09/2023 11:15:00 AM Scheduled Provider:Ray MONTERO MD Location:[facility] Appointment Type:URO Office Visit Diagnostic Tests Pending * Calculi Analysis Urinary [facility] Future Appointments Appointment Date:07/18/2024 11:20:00 AM Scheduled Provider:TOM SHANNON PA-C Location:[facility] Appointment Type:URO Office Visit [facility] evaluation note* Diagnosis Onset Date Resolution Status Sore throat noneactive [facility] Work Phone: Evaluation note* Diagnosis Seasonal allergic rhinitis due to pollen- Primary Pain of right heel Seborrheic keratosis Viral gastroenteritis Intestinal infection due to other organism, NEC Influenza A- Primary Influenza with other respiratory manifestations [facility] Narrative No data available for this section [facility] Hospital Discharge instructions No data available for this section [facility] No data available for this section [facility] Summary Purpose Family History No Family [...] August 17, 2023 End: August 17, 2023 Manager Retail Store Relationship Specialty Start Date End Date Boyd Desouza MD [address] [place] [address] PCP - General Family Medicine 09/10/23 Boyd Desouza MD [address] [place] [id number] PCP - [facility] 11/12/23 Manager Retail Store Relationship Specialty Start Date End Date Boyd Desouza MD [address] [place] [phone] PCP - [facility] 09/10/23 Boyd Desouza MD [address] [place] [phone] PCP [facility] 11/12/23 Manager Retail Store Relationship Specialty Start Date End Date Boyd Desouza MD [address] [place] [address] PCP - [facility] 09/10/23 (unrecognized sect ion and content) No Status Records FoundNo Status Records FoundNo Status Records Found INFORMATION SOURCE (unrecogn ized section and content) DATE CREATED AUTHOR 05/12/2022 [facility] DATE CREATED AUTHOR AUTHOR'S ORGANIZ ATION 07/11/2024 [facility] dical [facility] DATE CREATED AUTHOR AUTHOR'S ORGANIZ ATION 07/20/2024 [facility] Goals (unrecognized section and content) Goals [...] BE BASED ON THE PRIMARY CLINICAL RECORDS. [email or web address] provides no warranty or guarantee of the accuracy or completeness of information in this document.
--- NOTE | 2024-08-02 12:43 | ED_ITS ---
HPI HPI - General Adult General Chief complaint: Urogenital-Male Stated complaint: BLOOD IN URINE, L KIDNEY PAIN Time Seen by Provider: 08/02/24 12:31 Mode of arrival: walk-in History of Present Illness HPI narrative: The patient have history of kidney stones apparently follow-up regularly with his urologist, already had a x-ray done earlier this month that showed that he had multiple kidney stone he is planned to have a CAT scan next Sunday for evaluation. He noticed over the last few days that he had some blood in urine and that what made him come to the ER He is denying any fever or chills and he denies any pain at the moment mentioned the pain comes and goes and he has not taken anything for it and he is not taking any Flomax Related Data Home Medications ?Medication ?Instructions ?Recorded ?Confirmed fluticasone propionate 50 1 spray intranasal Q12H 01/02/23 01/02/23 mcg/actuation nasal spray,suspension Previous Rx's ?Medication ?Instructions ?Recorded ketotifen fumarate 0.025 % (0.035 1 drp ophthalmic (eye) Q12H PRN 01/02/23 %) eye drops (Allergy Eye allergy symptoms #5 mL (ketotifen)) naphazoline 0.025 %-pheniramine 1 drp ophthalmic (eye) Q12H PRN 01/02/23 0.3 % eye drops (Eye Allergy eye irritation #15 mL Relief (naphazoline-pheniramine)) tamsulosin 0.4 mg capsule (Flomax) 0.4 mg PO DAILY #10 caps 08/02/24 Allergies Allergy/AdvReac Type Severity Reaction Status Date / Time codeine AdvReac Intermediate Verified 01/02/23 12:17 Opioid HPI Opioid Management Most Recent Opioid Data: Last Pain Scale 0 08/02/24 12:31 08/02/24 Last ED Pain Assessment 08/02/24 12:31 Review of Systems ROS Status of ROS 10 or more systems reviewed and unremark able except as noted in history and below PFSH PFSH Social History Little interest or pleasure in doing things: not at all Feeling down, depressed, or hopeless: not at all Exam Narrative Exam Narrative: Nurses notes and vital signs reviewed and patient is not hypoxic. General: Well-appearing and in no apparent distress. Skin: Warm, dry, no pallor noted. No rash. Head: Normocephalic, atraumatic. Neck: Supple, non-tender. Cardiovascular: Regular Rate and Rhythm without murmur, gallop or rub. Respiratory: No accessory muscle use or respiratory distress. Lungs are clear to auscultation, no wheezing, rales or rhonchi Chest Wall: no tenderness Back: No midline thoracic or lumbar vertebral tenderness. No CVA tenderness Musculoskeletal: normal ROM, no calf or popliteal tenderness, no lower extremity edema/swelling GI: Abdomen is soft, non-distended. Normal bowel sounds. No masses appreciated. No tenderness to palpation. No rebound, guarding, or rigidity noted. Neurological: A&O x4. No cranial nerve dysfunction observed. Constitutional Vital Signs, click to edit/add: Last Vital Signs Temp 98.1 F 08/02/24 12:17 Pulse 97 H 08/02/24 12:17 Resp 18 08/02/24 12:17 BP 144/88 H 08/02/24 12:17 Pulse Ox 98 08/02/24 12:17 O2 Del Method Room Air 08/02/24 12:17 Course Vital Signs Vital signs: Vital Signs Temperature 98.1 F 08/02/24 12:17 Pulse Rate 97 H 08/02/24 12:17 Respiratory Rate 18 08/02/24 12:17 Blood Pressure 144/88 H 08/02/24 12:17 Pulse Oximetry 98 08/02/24 12:17 Oxygen Delivery Method Room Air 08/02/24 12:17 Temperature 98.1 F 08/02/24 12:17 Pulse Rate 97 H 08/02/24 12:17 Respiratory Rate 18 08/02/24 12:17 Blood Pressure 144/88 H 08/02/24 12:17 Pulse Oximetry 98 08/02/24 12:17 Oxygen Delivery Method Room Air 08/02/24 12:17 Medical Decision Making MDM Narrative Medical decision making narrative: I spoke with the patient extensively explained to him that he is not having any active pain at the moment I wanted to do a urine test but he mentioned that he already had a urine test done earlier this month and he does not have any signs of infection I did explain to him that the blood in the urine mostly secondary to the fact that he is having kidney stone and that usually will cause hematuria and the fact that he does not have a continuous pain meaning that usually that the stone is moving and not actually staying in the same place The patient did not want any urine test to be done he wanted to his Flomax prescription which he was provided with a 10 days prescription And I did explain to him that in case of any fever or any pain he is to come back to the ER The patient is to follow up with primary care physician in next 2-3 days or to return to the emergency department should any of the signs or symptoms worsen or new symptoms develop. The patient agrees with the following Diagnosis and Treatment plan and the patient will be discharged home. Discharge Plan Discharge Chief Complaint: Urogenital-Male Clinical Impression: Kidney calculi Patient Disposition: Home, Self-Care Time of Disposition Decision: 12:43 Condition: Good Prescriptions / Home Meds: New tamsulosin [Flomax] 0.4 mg capsule 0.4 mg PO DAILY Qty: 10 0RF No Action fluticasone propionate 50 mcg/actuation spray,suspension 1 spray INTRANASAL Q12H Eye Allergy Relief 0.025-0.3 % drops 1 drp ophthalmic (eye) Q12H PRN (Reason: eye irritation) Qty: 15 0RF ketotifen fumarate [Allergy Eye (ketotifen)] 0.025 % (0.035 %) drops 1 drp ophthalmic (eye) Q12H PRN (Reason: allergy symptoms) Qty: 5 0RF Print Language: Afghan Instructions: Kidney Stones (ED), How to Strain Your Urine (ED) Referrals: Boyd Pino MD [Primary Care Provider] - 1 week Discharge Date/Time: 08/02/24 12:48
[2024-08-02] MEDS: TAMSULOSIN HCL 0.4 MG CAPSULE PO (12:46)
== END 2024-08-02 12:48 | disposition home or self-care (01) ==
PROVIDERS: Emergency Provider Emergency Medicine; PCP Family Medicine
DX: N20.0 Calculus of kidney (principal); R31.9 Hematuria, unspecified; Z87.442 Personal history of urinary calculi
CPT/HCPCS: 99283

== ENCOUNTER 2024-12-08 10:49 | Emergency (ER) | payer OTHER, BC, SELFPAY ==
[2024-12-08 10:53] VITALS: BP 146/99; PULSE 97; TEMP 36.8; O2SAT 97; BMI 29.2
--- OUTSIDE RECORDS SUMMARY | 2024-12-08 10:57 | XMS_ITS | Clinical Summary ---
Author Organization [facility] Healthcare Address [address] [place] [address] Care Team Providers Care Sound Technician Supervisor Name Role Phone Boyd Pino MD Primary Care Provider [phone] Allergies Active Allergy Reactions Criticality Noted Date Comments Codeine 03/12/2019 Medications Effer-K 25 MEQ effervescent tablet ALLOW 1 TABLET TO DISSOLVE IN 4 OUNCES OF WATER BEFORE DRINKING TWICE DAILY 4 Active fluticasone (Flonase) 50 MCG/ACT nasal sprayIndications: Seasonal allergic rhinitis due to pollen USE 2 SPRAYS IN EACH NOSTRIL DAILY.SHAKE GENTLY.BEFORE FIRST USE,PRIME PUMP.AFTER USE,CLEAN TIP AND REPLACE CAP. 48 mL 2 4 Active tamsulosin (Flomax) 0.4 MG 24 hr capsule Take 0.4 mg by mouth Daily 5 Active Active Problems Problem Noted Date Diagnosed Date Subacute maxillary sinusitis 08/05/2024 Assessment & Plan (08/14/2024 6:47 AM EDT): Given atb at last visit Assessment & Plan (08/05/2024 5:41 PM EDT): Atb Fluids, rest Fu in 10 days Subacute cough 08/05/2024 Assessment & Plan (08/28/2024 11:47 AM EDT): Much improved Assessment & Plan (08/05/2024 5:41 PM EDT): Likely related to recent influenza Trial bromfed DM Pharyngitis 08/05/2024 Overview (08/14/2024): [employer]: left tonsil sore [id number] EXP: 10/12/2026 Lot # [id number] Assessment & Plan (08/28/2024 11:48 AM EDT): At last visit had ulceration left tonsilar region, still present, spoke with Mich Pino agrees with culture if normal consider test for mono This was communicated to the pt on 08/14/24 at 16:42pm 08/28/24 improved in that there is no longer an ulceration, however area is still erythema, no exudate Assessment & Plan (08/14/2024 4:42 PM EDT): At last visit had ulceration left tonsilar region, still present, spoke with Mich Pino agrees with culture if normal consider test for mono This was communicated to the pt on 08/14/24 at 16:42pm Assessment & Plan (08/05/2024 5:42 PM EDT): Fu in 10 days for recheck ulceration left tonsilar region Persistent disorder of initiating or maintaining sleep 09/21/2023 Ocular migraine 09/21/2023 Assessment & Plan (08/05/2024 5:42 PM EDT): Describes an ocular migraine recently Seasonal allergic rhinitis due to pollen 024 Assessment & Plan (09/21/2023 11:00 AM EDT): Increased symptoms and start nasacort and zyrtec. Vitamin D deficiency 09/21/2023 Pain of right heel 09/21/2023 Assessment & Plan (09/21/2023 11:00 AM EDT): Pain for few weeks but improving. Likely irritated with running. Recommend changing running shoes. Use ice PRN. If worsens start stretches and use OTC NSAIDs. Hypokalemia 09/21/2023 Seborrheic keratosis 09/21/2023 Assessment & Plan (08/28/2024 11:50 AM EDT): Reassurance I suspect SK If he would like removed we can schedule in office or possibly refer to derm Assessment & Plan (09/21/2023 11:01 AM EDT): Lesion appears to be benign SK. Recommend monitor. If change in size or shape or start to bother patient can biopsy. Resolved Problems Problem Noted Date Diagnosed Date Resolved Date Influenza A 07/09/2024 08/05/2024 Assessment & Plan (08/05/2024 5:40 PM EDT): May still have post viral cough No fever Assessment & Plan (07/09/2024 10:07 AM EST): Positive for influenza A and outside time [...] no better or worse call for re-evaluation. Phantosmia 09/21/2023 09/21/2023 Viral gastroenteritis 09/21/20232024 Assessment & Plan (09/21/2023 11:01 AM EDT): Symptoms due to virus and may take up to 10-14 days to resolve. Increase clear liquids. Give small sips of water or gatorade. If excess vomiting, nothing oral x 4-5 hours then start small amounts or sips of liquids every 15 minutes. Common to have diarrhea with this illness. No solids x 24 hours then gradually advance diet starting with crackers, toast, bananas, applesauce. Warned signs of dehydration such as dry mouth or decreased urine output. Wash hands frequently to prevent spread. Immunizations Immunization Administration Dates Next Due DTP 12/12/1991, 8,1986,1986,1986 DTaP, Unspecified 08/10/1987 Hep B, Adolescent or Pediatric 04/03/2000,1999,12/23/1997 HiB, unspecified 04/21/1988 Influenza, injectable, MDCK, preservative free, quadrivalent 06/04/2023 MMR 02/01/2000,08/10/1987 OPV 12/12/1991, 8,1986,1985 Social History Tobacco Use Types Packs/Day Years Used Date Smoking Tobacco: Never Smokeless Tobacco: Never Tobacco Cessation:Counseling Given: Not Answered Sex and Gender Information Value Date Recorded Sex Assigned at Not on file Legal Sex Male 7:17 PM EDT Gender Identity Not on file Sexual Orientation Not on file Last Filed Vital Signs Vital Sign Reading Time Taken Comments Blood Pressure 122/90 08/28/2024 11:04 AM EDT Pulse 79 08/28/2024 11:04 AM EDT Temperature 36.9 C (98.5 F) 08/28/2024 11:04 AM EDT Respiratory Rate 18 08/28/2024 11:04 AM EDT Oxygen Saturation 96% 08/28/2024 11:04 AM EDT Inhaled Oxygen Concentration - - Weight 76.7 kg (169 lb) 08/28/2024 11:04 AM EDT Height 160 cm (5' 3 ) 07/09/2024 9:33 AM EST Body Mass Index 29.94 07/09/2024 9:33 AM EST Plan of Treatment Health Maintenance Due Date Last Done Comments Influenza Vaccine (#1) 2025 06/04/2023 Insurance Care Teams Sound Technician Supervisor Relationship Specialty Start Date End Date Boyd Pino MD [address] [place] [address] PCP - General Family Medicine 09/10/23
--- OUTSIDE RECORDS SUMMARY | 2024-12-08 10:57 | XMS_ITS | Clinical Summary ---
Author Organization [employer] tem Address [id number] [address] [place] [address] Care Team Providers Care Faculty Member Name Role Phone Boyd Pino MD Primary Care Provider [phone] Allergies Active Allergy Reactions Criticality Noted Date Comments Codeine 03/12/2019 Medications melatonin (CIRCADIN) tablet Take by mouth nightly. Active cyclobenzaprine (FLEXERIL) 10 mg tablet Take 1 tablet (10 mg total) by mouth 3 (three) times a day as needed for muscle spasms for up to 20 doses. 20 tablet 8 Active ondansetron ODT (ZOFRAN-ODT) 4 mg disintegrating tablet Dissolve 1 tablet (4 mg total) on tongue every 8 (eight) hours as needed for nausea for up to 10 doses. 10 tablet 9 Active Social History Tobacco Use Types Packs/Day Years Used Date Smoking Tobacco: Never Smokeless Tobacco: Never Childcare Answer Date Recorded Childcare Unknown 10/23/2018 Employment Answer Date Recorded Employment Unknown 10/23/2018 Purpose - Life Answer Date Recorded Purpose and direction in life Unknown Sex and Gender Information Value Date Recorded Sex Assigned at Not on file Legal Sex Male 11:39 AM EDT Gender Identity Not on file Sexual Orientation Not on file Last Filed Vital Signs Vital Sign Reading Time Taken Comments Blood Pressure 132/82 03/12/2019 7:11 PM EDT Pulse 69 03/12/2019 5:01 PM EDT Temperature 36.5 C (97.7 F) 03/12/2019 5:01 PM EDT Respiratory Rate 18 03/12/2019 5:01 PM EDT Oxygen Saturation 98% 03/12/2019 5:01 PM EDT Inhaled Oxygen Concentration - - Weight 68 kg (150 lb) 03/12/2019 5:01 PM EDT Height 160 cm (5' 3 ) 03/12/2019 5:01 PM EDT Body Mass Index 26.57 03/12/2019 5:01 PM EDT Plan of Treatment Health Maintenance Due Date Last Done Comments Depression Screening 1998 Tobacco Screening 1998 Adult BMI Screening 01/31/2004 DTaP,Tdap and Td Vaccines (1 - Tdap) 2005 Influenza Vaccine 01/12/2025 Medical Devices Not on file Insurance [employer] Care Teams Faculty Member Relationship Specialty Start Date End Date Boyd Pino MD PCP - General 06/18/17
--- OUTSIDE RECORDS SUMMARY | 2024-12-08 10:57 | XMS_ITS | Encounter Summary ---
Author Organization [facility] Address [address] [place] [address] Care Team Providers Care Human Resources Hr Representative Name Role Phone Boyd Pino MD Primary Care Provider [phone] Boyd Pino MD Unavailable Encounter Details Date Type Department Care Team (Late st Contact Info) Description 08/18/2024 Orders Only [facility] [address] [place] [id number] Chayito Jarvis NP [address] [place] [address] Social History Tobacco Use Types Packs/Day Years Used Date Smoking Tobacco: Never Smokeless Tobacco: Never Sex and Gender Information Value Date Recorded Sex Assigned at Not on file Legal Sex Male 7:17 PM EDT Gender Identity Not on file Sexual Orientation Not on file documented as of this encounter Plan of Treatment Not on file documented as of this encounter Procedures Procedure Name Priority Date/Time Associated Diagnosis Comments SCANNED LABS Routine 08/18/2024 10:50 AM EDT documented in this encounter Results * SCANNED LABS (08/18/2024 10:50 AM EDT) us Chayito Jarvis [employer] [facility] [facility] CHG PERFORMABLES Final Resu lt documented in this encounter Visit Diagnoses Not on filedocumented in this encounter Care Teams Human Resources Hr Representative Relationship Specialty Start Date End Date Boyd Pino MD [address] [place] [phone] PCP - General Family Medicine 09/10/23 Boyd Pino MD [address] [place] [address] PCP - [place] [employer] 11/12/23 documented as of this encounter
--- OUTSIDE RECORDS SUMMARY | 2024-12-08 10:57 | XMS_ITS | Encounter Summary ---
Author Organization [facility] Address [address] [place] [address] Care Team Providers Care Keg Inspector Name Role Phone Boyd Pino MD Primary Care Provider [phone] Boyd Pino MD Unavailable Encounter Details Date Type Department Care Team (Late st Contact Info) Description 06/06/2023 Orders Only [facility] [address] [place] [address] Ray Montero MD [address] [place] [address] Social History Tobacco Use Types Packs/Day Years Used Date Smoking Tobacco: Never Assessed Sex and Gender Information Value Date Recorded Sex Assigned at Not on file Legal Sex Male 7:17 PM EDT Gender Identity Not on file Sexual Orientation Not on file documented as of this encounter Plan of Treatment Not on file documented as of this encounter Procedures Procedure Name Priority Date/Time Associated Diagnosis Comments SCANNED LABS Routine 06/06/2023 10:37 AM EST documented in this encounter Results * SCANNED LABS (06/06/2023 10:37 AM EST) us Ray Montero MD LAB CHG PERFORMABLES Final R esult documented in this encounter Visit Diagnoses Not on filedocumented in this encounter Care Teams Keg Inspector Relationship Specialty Start Date End Date Boyd Pino MD [address] [place] [address] PCP - General Family Medicine 09/10/23 Boyd Pino MD [address] [place] [address] PCP - [place] [employer] 11/12/23 documented as of this encounter
[2024-12-08 10:58] VITALS: PULSE 97
--- NOTE | 2024-12-08 10:59 | ED.GENADUL1 ---
HPI HPI - General Adult General Chief complaint: Extremity Injury, Lower Stated complaint: BWC;L FOOT PAIN AFTER STEPPING ON A NAIL Time Seen by Provider: 12/08/24 10:51 Source: patient Mode of arrival: walk-in Limitations: no limitations History of Present Illness HPI narrative: 39-year-old male presents for puncture wound to his left foot. The nail went through his shoe and into his foot. He has not had a tetanus shot in the last 10 years. He put liquid glue on it. This happened a few hours ago. Related Data Home Medications ?Medication ?Instructions ?Recorded ?Confirmed fluticasone propionate 50 1 spray intranasal Q12H 01/02/23 01/02/23 mcg/actuation nasal spray,suspension Previous Rx's ?Medication ?Instructions ?Recorded ketotifen fumarate 0.025 % (0.035 1 drp ophthalmic (eye) Q12H PRN 01/02/23 %) eye drops (Allergy Eye allergy symptoms #5 mL (ketotifen)) naphazoline 0.025 %-pheniramine 1 drp ophthalmic (eye) Q12H PRN 01/02/23 0.3 % eye drops (Eye Allergy eye irritation #15 mL Relief (naphazoline-pheniramine)) tamsulosin 0.4 mg capsule (Flomax) 0.4 mg PO DAILY #10 caps 08/02/24 cephalexin 500 mg capsule 500 mg PO TID 5 days #15 caps 12/08/24 Allergies Allergy/AdvReac Type Severity Reaction Status Date / Time codeine AdvReac Intermediate Unknown Verified 12/08/24 10:56 Opioid HPI Opioid Management Most Recent Opioid Data: Last Pain Scale 0 08/02/24, 12:31 Review of Systems ROS Narrative A ten point review of systems is negative except as noted above. PFSH PFSH Social History Little interest or pleasure in doing things: not at all Feeling down, depressed, or hopeless: not at all Exam Narrative Exam Narrative: Nurses note and vital signs reviewed and patient is not hypoxic. General: The patient appears well and in no apparent distress. Patient is resting comfortably on cart. Skin: Warm, dry, no pallor noted. There is no rash noted. Head: Normocephalic, atraumatic Eye: Normal conjunctiva, no drainage Ears, Nose, Mouth, and Throat: oral mucosa is moist. Nares patent. Cardiovascular: Regular Rate and Rhythm Respiratory: Patient is in no distress, no accessory muscle use Back: non-tender GI: Nontender Musculoskeletal: Puncture phyllis present on the left foot plantar surface. It is lateral and distal. No active bleeding. There seems to be liquid glue over it. Neurological: A&O, normal speech Psychiatric: Cooperative Constitutional Vital Signs, click to edit/add: Last Vital Signs Temp 98.3 F 12/08/24 10:53 Pulse 97 H 12/08/24 10:58 Resp 18 12/08/24 10:53 BP 146/99 H 12/08/24 10:53 Pulse Ox 97 12/08/24 10:53 O2 Del Method Room Air 12/08/24 10:53 Course Vital Signs Vital signs: Vital Signs Temperature 98.3 F 12/08/24 10:53 Pulse Rate 97 H 12/08/24 10:53 Respiratory Rate 18 12/08/24 10:53 Blood Pressure 146/99 H 12/08/24 10:53 Pulse Oximetry 97 12/08/24 10:53 Oxygen Delivery Method Room Air 12/08/24 10:53 Temperature 98.3 F 12/08/24 10:53 Pulse Rate 97 H 12/08/24 10:58 Respiratory Rate 18 12/08/24 10:53 Blood Pressure 146/99 H 12/08/24 10:53 Pulse Oximetry 97 12/08/24 10:53 Oxygen Delivery Method Room Air 12/08/24 10:53 Medical Decision Making MDM Narrative Medical decision making narrative: X-ray per radiologist shows no acute findings. We have updated his tetanus and he is prescribed Keflex, 5-day prophylactic course. Treatment diagnosis and follow-up were discussed with the patient. Differential Diagnosis Differential Diagnosis: Puncture wound, foreign body Imaging Data Left foot x-ray: Radiologist's impression: ITS Impressions Foot X-Ray 12/08/24 11:11 IMPRESSION: NO ACUTE BONY INJURY OR RADIOPAQUE FOREIGN BODIES. Impression dictated by: Kathy Pollock M.D. 12/08/2024 11:22 AM Dictation Location: [place] [address] Electronically authenticated by: [id number] Y Date: 12/08/2024 11:22 Discharge Plan Discharge Chief Complaint: Extremity Injury, Lower Clinical Impression: Puncture wound Patient Disposition: Home, Self-Care Time of Disposition Decision: 11:46 Condition: Good Mode of Transportation: Private Vehicle Prescriptions / Home Meds: New cephalexin 500 mg capsule 500 mg PO TID 5 Days Qty: 15 0RF No Action fluticasone propionate 50 mcg/actuation spray,suspension 1 spray INTRANASAL Q12H Eye Allergy Relief 0.025-0.3 % drops 1 drp ophthalmic (eye) Q12H PRN (Reason: eye irritation) Qty: 15 0RF ketotifen fumarate [Allergy Eye (ketotifen)] 0.025 % (0.035 %) drops 1 drp ophthalmic (eye) Q12H PRN (Reason: allergy symptoms) Qty: 5 0RF tamsulosin [Flomax] 0.4 mg capsule 0.4 mg PO DAILY Qty: 10 0RF Print Language: Indonesian Instructions: Puncture Wound in the Foot (ED) Referrals: Boyd Pino MD [Primary Care Provider, Family Practice] - 1 week
--- OUTSIDE RECORDS SUMMARY | 2024-12-08 11:08 | XMS_ITS | CCD ---
Author Organization [facility] Care Team Providers Care Vessel Liner Name Role Phone BOYD DESOUZA Primary Care Physician [phone] LYLY, DR BOYD Aguilar Primary Care Unavailable YAZ ALDANA Admitting Unavailable KATYA, YAZ Attending Unavailable KATYA, YAZ Consulting Unavailable ANDREI, DR LIA Bhakta Admitting Unavailable ANDREI, DR LIA Bhakta Attending Unavailable LYLY, DR BOYD Aguilar Primary Care Unavailable ANDREI, DR LIA Bhakta Consulting Unavailable SYLVIA, DR CANDIE Eisenberg Consulting Unavailable LYLY, DR BOYD Aguilar Primary Care Unavailable KATYA, YAZ Consulting Unavailable KATYA, YAZ Admitting Unavailable KATYA, YAZ Attending Unavailable FREDI NAPIER Consulting Unavailable Boyd Desouza MD Primary Care Provider Boyd Desouza MD Unavailable Ray MONTERO Attending Unavailable EMMY SHANNON Attending Unavailab BOYD Rowe Attending Unavailable BOYD DESOUZA Attending Unavailable SIMONA, CHAYITO Attending Unavailable SIMONA, CHAYITO Attending Unavailable SIMONA, CHAYITO Attending Unavailable Allergies Allergy Classification Reported Allergen(s) Allergy Type Date of Onset Reaction(s) Facility (20 sources) Codeine; Translations: [codeine] Drug Allergy 9 Vomiting (disorder) [facility] (1 source) Codeine Drug Allergy [facility] Repository (1 source) Codeine; Translations: [codeine sulfate] Drug Allergy [facility] Repository Medications Current Medications Medication Drug Class(es) Dates Sig (Normalized) Sig (Original) acetaminophen 500 mg oral tablet (8 sources) Start: 10-04-2021 take 500 mg by mouth every six hours as needed for pain Tylenol 500 mg, Oral, q6hr, PRN as needed for pain, Refills(s) 0 Start Date: 10/04/21 Status: Ordered Start: 10-04-2021 Tylenol Oral, Refills(s) 0 Start Date: 10/04/21 Status: Ordered amoxicillin 875 mg / clavulanate 125 mg oral tablet (3 sources) Penicillin-class Antibacterial Start: 08-05-2024 End: 08-15-2024 take 1 tablet by mouth in the morning amoxicillin-clavulanate (Augmentin) 875-125 MG tablet Indications: Subacute maxillary sinusitis Take 1 tablet (875 mg) by mouth in the morning and 1 tablet (875 mg) before bedtime. Do all this for 10 days. Take with food. 20 tablet 08/05/2024 08/15/2024 Active benzonatate 200 mg oral capsule (3 sources) [...] or chew. 30 capsule 1 07/09/2024 Active brompheniramine maleate 0.4 mg/ml / dextromethorphan hydrobromide 2 mg/ml / pseudoephedrine hydrochloride 6 mg/ml oral solution (3 sources) alpha-Adrenergic Agonist, Uncompetitive I-gomxft-K-aspartate Receptor Antagonist, Sigma-1 Agonist Start: 08-05-2024 End: 08-15-2024 take 5 mL by mouth four times daily as needed bciqaymxqasvzew-atavhgaeaqixynf-YX 30-2-10 MG/5ML syrup Indications: Subacute maxillary sinusitis , Subacute cough Take 5 mL by mouth 4 (four) times a day as needed for allergies for up to 10 days 200 mL 08/05/2024 08/15/2024 Active cetirizine hydrochloride 10 mg oral tablet (10 sources) Histamine-1 Receptor Antagonist Start: 09-21-2023 End: 08-28-2024 take 1 tablet by mouth once daily cetirizine (ZyrTEC) 10 MG tablet Indications: Seasonal allergic rhinitis due to pollen Take 1 tablet (10 mg) by mouth Daily 30 tablet 5 09/21/2023 08/28/2024 Discontinued (Therapy completed) fluticasone propionate 0.05 mg/actuat metered dose nasal spray (19 sources) Corticosteroid Start: 12-17-2023 fluticasone (Flonase) 50 MCG /ACT nasal spray Indications: Seasonal allergic rhinitis due [...] q6hr, # 20 tab(s), Refills(s) 0, [id number] Start Date: 10/04/21 Status: Ordered ketorolac tromethamine 10 mg oral tablet (2 sources) Nonsteroidal Anti-inflammatory Drug, Cyclooxygenase Inhibitor Start: 10-04-2021 take 1 tablet by mouth every six hours as needed for pain ketorolac 10 mg Tab 10 mg = 1 tab(s), Oral, q6hr, PRN for pain, # 20 tab(s), Refills(s) 0, [facility]: [id number] Start Date: 10/04/21 Status: Ordered melatonin [...] potassium bicarbonate 25 meq effervescent oral tablet (12 sources) Start: 08-06-2023 Effer-K 25 MEQ effervescent [...] Active tamsulosin hydrochloride 0.4 mg oral capsule (10 sources) alpha-Adrenerg ic Sedrick Start: 08-02-2024 take 1 capsule by mouth once daily tamsulosin (Flomax) 0.4 MG 24 hr capsule Take 0.4 mg by mouth Daily 08/02/2024 Active Start: 08-17-2023 Tamsulosin Act isrrael MG PO August 17, 2023 12:00am Start: 10-04-2021 take 1 capsule by [facility] once daily tamsulosin 0.4 mg Cap 0.4 mg = 1 cap(s), Oral, Daily, # 30 cap(s), Refills(s) 0, Pharmacy: [facility]/pharmacy #[id number] Start Date: 10/04/21 Status: Ordered Vitamin [...] BID, # 60 tab(s), Refills(s) 11, Pharmacy: [facility]/pharmacy #[id number], 160, cm, 07/09/23 12:45:00 EST, Height/Length [...] urination] Onset: 10-04-2021 Episodic Headache; including migraine (11 sources) Ophthalmic migraine; Translations: [Migraine with aura, not intractable, without status migrainosus] Onset: 09-21-2023 09-21-2023 Chronic Hyperplasia of prostate (1 source) Benign prostatic hyperplasia; Translations: [Benign prostatic hyperplasia without lower urinary tract symptoms] 08-17-2023 Chronic Nutritional deficiencies (11 sources) Vitamin D deficiency; Translations: [Vitamin D deficiency, unspecified] Onset: 09-21-2023 09-21-2023 Chronic Other lower respiratory disease (11 sources) Cough; Translations: [Subacute cough] Onset: 08-05-2024 08-05-2024 Episodic Other skin disorders (13 sources) Seborrheic keratosis; Translations: [Other seborrheic keratosis] Onset: 09-21-2023 09-21-2023 Episodic Other upper respiratory disease (11 sources) Allergic rhinitis due to pollen; Translations: [Allergic rhinitis due to pollen] Onset: 09-21-2023 09-21-2023 Chronic Other upper respiratory infections (20 sources) Acute pharyngitis, unspecified; Translations: [Acute pharyngitis] Onset: 08-05-2024 08-17-2023 Episodic Past or Other Problems Problem Classification Problem Date Documented Date Episodic/Chronic Fluid and electrolyte disorders (11 sources) Hypokalemia; Translations: [Hypokalemia] Onset: 09-21-2023 09-21-2023 Episodic Influenza (12 sources) Influenza due to Influenza A virus; Translations: [Influenza due to other identified influenza virus with other respiratory manifestations] Onset: 07-09-2024 Resolved: 08-05-2024 07-09-2024 Episodic Intestinal infection (11 sources) Viral gastroenteritis; Translations: [Viral intestinal infection, unspecified] Onset: 09-21-2023 Resolved: 07-09-2024 09-21-2023 Episodic Nausea and vomiting (4 sources) Nausea; Translations: [NAUSEA] Onset: 01-28-2022 Episodic Other aftercare (1 source) 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; Translations: [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 DRUG THERAPY] Onset: 02-09-2022 Episodic Other connective tissue disease (11 sources) Pain in right heel; Translations: [Pain in right foot] Onset: 09-21-2023 09-21-2023 Episodic Residual codes; unclassified (1 source) Hypothermia, not associated with low environmental temperature; Translations: [HYPOTHERMIA NOT W/LOW ENVIR TEMP] Onset: 02-09-2022 Episodic Residual codes; unclassified (11 sources) Persistent insomnia; Translations: [Insomnia, unspecified] Onset: 09-21-2023 09-21-2023 Episodic Residual codes; unclassified (11 sources) Olfactory hallucinations; Translations: [Other hallucinations] Onset: [...] E&M of Est. Patient Moderate 30-39 Min 96197 2. Kidney stones (N20.0: Calculus of kidney) Pt states that he has always gotten them since he was 15, around [facility] time. [1] Hx of multiple lithotripsies by RWR. S/p bilat ESWL Fall 2021. 24hr urine 05/23/23 - Total volume 1775mL. Low citric acid. Oxalate was not tested. Serum labs 05/23/23 - wnl. Stone analysis 05/25/23 - 100% Lamar Ca Ox. Drinks ~10 cups of water [...] E&M of Est. Patient Moderate 30-39 Min 06727 Orders: potassium bicarbonate, 25 mEq = 1 tab(s), Oral, BID, # 60 tab(s), Refills(s) 11, Pharmacy: [facility] #[id number], 160, cm, 07/18/24 11:27:00 EST, Height/Length Dosing, 70.2, kg, 07/18/24 11:27:00 EST, Weight Dosing Follow-up With When Contact Information MIRTHA BOOTH, TOM Longo, URL In 1 year [address] [place] [address] Additional Instructions: Patient Education Kidney Stones, Jfnq-ku-Azao Problem List/Past Medical History Ongoing Flank pain [...] DTaP, unspecified formulation 08/10/1987 Recorded Normal [facility] Comment on above: Result Comment: Elec tronically Signed By: TOM SHANNON PA-C\Date and Time Signed: 07/18/24 12:19 EST XR ABDOMEN 1Von 07-14-2024 [place] [address] XRay Report Signed Patient: DAI ESTEVEZ Jr. MR#: [id number] : 1985 Acct:[id number] Age/Sex: 39 / M ADM Date: 07/14/24 Loc: RAD Attending Dr: Ray Montero M.D. Ordering Physician: Ray Montero M.D. Date of Service: 07/14/24 Procedure(s): XR abdomen 1V Accession Number(s): [id number] cc: Boyd Desouza M.D.; Ray Montero M.D. [place] [address] Patient Name: DAI ESTEVEZ MRN: [id number] date: 1985 Sex: M Assigned Patient Location: [facility] Current Patient Location: [facility] Accession/Order Number: [id number] Exam Date: 07/14/2024 16:54 Report Date: 07/14/2024 [...] Dennis Jr., D.O.07/14/2024 4:54 PM Dictation Location: RADIO-PC-22 Electronically authenticated by: [id number] Y Date: 07/14/2024 16:54 Dictated By: Marin Dennis M.D. Signed By: 07/14/24 1657 DD/ 1654 TD/TT: Clamshell Operator: [facility] Radiology, Radiologist, - 07/14/2024 [place] [address] XRay Report Signed Patient: DAI ESTEVEZ Jr. MR#: [id number] : 1985 Acct:[id number] Age/Sex: 39 / M ADM Date: 07/14/24 Loc: RAD Attending Dr: Ray Montero M.D. Ordering Physician: Ray Montero M.D. Date of Service: 07/14/24 Procedure(s): XR abdomen 1V Accession Number(s): [id number] cc: Boyd Desouza M.D.; Ray Montero M.D. The [place] [address] Patient Name: DAI ESTEVEZ MRN: [facility]:[id number] date: 1985 Sex: M Assigned Patient Location: [facility] Current Patient Location: [facility] Accession/Order Number: [id number] Exam Date: 07/14/2024 16:54 Report Date: 07/14/2024 [...] Dennis Jr., D.O.07/14/2024 4:54 PM Dictation Location: RADIO-PC-22 Electronically authenticated by: [id number] Y Date: 07/14/2024 16:54 Dictated By: Marin Dennis M.D. Signed By: 07/14/241656 DD/ 53 TD/TT: Clamshell Operator: [facility] Radiology Study observation (narrative) [facility] XR ABDOMEN 1VOrdered By: Nelson iologjessica Radiology on 07-14-2024 [facility] Work Phone: Laboratory - Microbiology an d Antimicrobial susceptibilityon 07-09-2024 SARS-CoV-2 (COVID-19) RNA LOLA+probe Ql (Unsp spec) Negative [facility] No Panel Informationon 07-09 FLU A Positive [facility] FLU B Negative [facility] Interpretation and review of laboratory results Abnormal [facility] XR KUB 1 VIEWon 05-08-2022 XR KUB [...] by: CANDIE WARD Date: 2022-05-08 16:08 Normal [facility] CHEMISTRYOrdered By: SYSTEM SYSTEM on 04-19-2022 Anion gap [Moles/Vol] 12 mmol/L Normal 6 - 16 mEq/L [facility] Remisol Chloride [Moles/Vol] 105 mmol/L Normal 101 - 1 11 mmol/L [facility] Remisol CO2 [Moles/Vol] 26 mmol/L Normal 21 - 31 mmol/L [facility] Remisol Creatinine [Mass/Vol] 1.0 mg/dL Normal 0.5 - 1.3 mg/dL [facility] Remisol GFR/1.73 sq M.predicted among blacks MDRD (S/P/Bld) [Vol rate/Area] mL/min/1.73 m2 Normal >=59mL/min/1. 73 m2 [facility] Chem S GFR/1.73 sq M.predicted among non-blacks MDRD (S/P/Bld) [Vol rate/Area] mL/min/1.73 m2 Normal >=59mL/min/1. 73 m2 [facility] Chem S Potassium [Moles/Vol] 3.7 mmol/L Normal 3.5 - 5.3 mmol/L [facility] Sodium [Moles/Vol] 139 mmol/L Normal 135 - 145 mmol/L [facility] Urea nitrogen [Mass/Vol] 16 mg/dL Normal 5 - 21 mg/dL [facility] COAGULATIONOrdered By: Carmelina Burrell on 04-19-2022 aPTT Coag (PPP) [Time] 32.8 s Normal 25.1 - 36.5 second(s) [facility] Auto Coag INR Coag (PPP) [Relative time] 1.0 {INR} Invalid Interpretation Code [facility] Auto Coag PT Coag (PPP) [Time] 10.8 s Normal 9.4 - 1 2.5 second(s) [facility] Auto Coag HEMATOLOGYOrdered By: Chelsy Carrillo on 04-19-2022 Erythrocyte distribution width (RBC) [Ratio] 14.1 % Normal 10.9 - 14.2 % [facility] HemeAutoSS Hematocrit (Bld) [Volume fraction] 42.7 % Normal 37.7 - 49.0 % [facility]eAutoSS Hemoglobin (Bld) [Mass/Vol] 14.7 g/dL Normal 13.5 - 17.5 gm/dL [facility] HemeAutoSS MCH (RBC) [Entitic mass] 28.3 pg Normal 27.0 - 34.0 pg [facility] MCHC (RBC) [Mass/Vol] 34.5 g/dL Normal 31.4 - 36.0 gm/dL [facility] MCV (RBC) [Entitic vol] 82.0 fL Normal 80.0 - 100.0 fL [facility]SS Platelet mean volume (Bld) [Entitic vol] 8.4 fL Normal 6.4 - 10.8 fL [facility]eAutoSS Platelets (Bld) [#/Vol] 247.0 E9/L Normal 150.0 - 500.0 E9/L [facility] HemeAutoSS RBC (Bld) [#/Vol] 5.2 E12/L Normal [...] AM) Normal Negative [facility] UA Auto SS [place].plasma/[place] .RBC (Bld) [Mass ratio] 0-3 /HPF Normal [...] Desc Clean Catch (04/19/22 11:46 AM) Normal [facility] UA Auto SS Urobilinogen Qn (U) [id number] {Padmini'U}/dL Normal 0.0 - 1.0 EU/dL [facility] UA Auto SS WBC Auto Ql (U) Negative (04/19/22 11:46 AM) Normal Negative [facility] UA Auto SS WBC LM.HPF (Urine sed) [#/Area] 0-5 /HPF Normal 0-5/HPF [facility] UA Auto SS CHEMISTRYOrdered By: SYSTEM SYSTEM on 01-13-2022 Anion gap [Moles/Vol] 12 mmol/L Normal 6 - 16 mEq/L [facility] Remisol Calcium [Mass/Vol] 9.4 mg/dL Normal 8.9 - 11. 1 mg/dL [facility] Remisol Chloride [Moles/Vol] 105 mmol/L Normal 101 - 1 11 mmol/L [facility] CO2 [Moles/Vol] 24 mmol/L Normal 21 - 31 mmol/L [facility] Creatinine [Mass/Vol] 1.0 mg/dL Normal 0.5 - 1.3 mg/dL [facility] Remisol GFR/1.73 sq M.predicted among blacks MDRD (S/P/Bld) [Vol rate/Area] mL/min/1.73 m2 Normal >=59mL/min/1. 73 m2 [facility] Chem S GFR/1.73 sq M.predicted among non-blacks MDRD (S/P/Bld) [Vol rate/Area] mL/min/1.73 m2 Normal >=59mL/min/1. 73 m2 [facility] Chem S Glucose [Mass/Vol] 88 mg/dL Normal 55 - 199 mg/dL [facility] Remisol Potassium [Moles/Vol] 3.7 mmol/L Normal 3.5 - 5.3 mmol/L [facility] Sodium [Moles/Vol] 137 mmol/L Normal 135 - 145 mmol/L [facility] Urea nitrogen [Mass/Vol] 12 mg/dL Normal 5 - 21 mg/dL [facility] Urea nitrogen/Creatinine [Mass ratio] 12 mg/mg [...] AM) Normal Negative [facility] UA Auto SS [place].plasma/[place] .RBC (Bld) [Mass ratio] 0-3 /HPF Normal 0-3/HPF [facility] UA Auto SS Mucus Ql (Urine sed) Trace (01/13/22 10:40 AM) Normal [facility] UA Auto SS Nitrite Ql (U) Negative (01/13/22 10:40 AM) Normal Negative [facility] UA Auto SS pH (U) 6.0 *NA* (01/13/22 10:40 AM) Invalid Interpretation Code 5.0 - 9.0 [facility] UA Auto SS Protein (U) [Mass/Vol] Negative (01/13/22 10:40 AM) Normal Negative [facility] UA Auto SS Specific gravity (U) [Rel density] 1.020 *NA* (01/13/22 10:40 AM) Invalid Interpretation Code 1.005 - 1.030 [facility] UA Auto SS UA Spec Desc Clean Catch (01/13/22 10:40 AM) Normal [facility] UA Auto SS Urobilinogen Qn (U) [id number] {Padmini'U}/dL Normal 0.0 - 1.0 EU/dL [facility] UA Auto SS WBC Auto Ql (U) Negative (01/13/22 10:40 AM) Normal Negative [facility] UA Auto SS WBC LM.HPF (Urine sed) [#/Area] 0-5 /HPF Normal 0-5/HPF [facility] UA Auto SS CBC AUTO DIFFon 12-03-2021 BASO # 0.0 103/ul Normal 0.0-0.1 [facility] Comment on above: Performed By: #### C BC #### [facility] Laboratory [address] [place] [address] Dr. Vivian Quintanilla Basophils/100 WBC (Bld) 0.3 % Normal 0.2-2.0 [facility] Comment on above: Performed By: #### C BC #### [facility] [address] [place] [address] Dr. Vivian Quintanilla EO # 0.2 103/ul Normal 0.0-0.7 [facility] Comment on above: Performed By: #### C BC #### [facility] [address] [place] [address] Dr. Vivian Quintanilla Eosinophils/100 WBC (Bld) 3.3 % Normal 0.9-7.0 [facility] Comment on above: Performed By: #### C BC #### [facility] [address] [place] [address] Dr. Vivain Quintanilla Erythrocyte distribution width (RBC) [Ratio] 13.4 % Normal 11.0-15.0 [facility] Comment on above: Performed By: #### C BC #### [facility] [address] [place] [address] Dr. Vivian Quintanilla Hematocrit (Bld) [Volume fraction] 43.2 % Normal 42.0-54.0 [facility] Comment on above: Performed By: #### C BC #### [facility] [address] [place] [address] Dr. Vivian Quintanilla Hemoglobin (Bld) [Mass/Vol] 14.3 g/dL Normal 14.0-18.0 [facility] Comment on above: Performed By: #### C BC #### [facility] [address] [place] [address] Dr. Vivian Quintanilla IG # 0.01 10e3/ul Normal 0.00-0.03 [facility] Comment on above: Performed By: #### C BC #### [facility] [address] [place] [address] Dr. Vivian Quintanilla IG % 0.2 % Normal 0.0-0.5 [facility] Comment on above: Performed By: #### C BC #### [facility] [address] [place] [address] Dr. Vivian Quintanilla LYMPH # 2.2 103/ul Normal 1.2-3.8 [facility] Comment on above: Performed By: #### C BC #### [facility] [address] [place] [address] Dr. Vivian Quintanilla Lymphocytes/100 WBC (Bld) 35.2 % Normal 20.5-60.0 [facility] Comment on above: Performed By: #### C BC #### [facility] [address] [place] [address] Dr. Vivian Quintanilla MANUAL DIFF REQ NO Normal [facility] Comment on above: Performed By: #### C BC #### [facility] [address] [place] [address] Dr. Vivian Quintanilla MCH (RBC) [Entitic mass] 28.1 pg Normal 25.9-34.0 [facility] Comment on above: Performed By: #### C BC #### [facility] [address] [place] [address] Dr. Vivian Quintanilla MCHC (RBC) [Mass/Vol] 33.1 g/dL Normal 29.9-35.2 [facility] Comment on above: Performed By: #### C BC #### [facility] [address] [place] [address] Dr. Vivian Quintanilla MCV (RBC) [Entitic vol] 84.9 fL Normal 80.0-94.0 [facility] Comment on above: Performed By: #### C BC #### [facility] [address] [place] [address] Dr. Vivian Quintanilla MONO # 0.3 103/ul Normal 0.3-0.8 [facility] Comment on above: Performed By: #### C BC #### [facility] [address] [place] [address] Dr. Vivian Quintanilla Monocytes/100 WBC (Bld) 5.2 % Normal 1.7-12.0 [facility] Comment on above: Performed By: #### C BC #### [facility] [address] [place] [address] Dr. Vivian Quintanilla NEUT # 3.4 103/ul Normal 1.4-6.5 [facility] Comment on above: Performed By: #### C BC #### [facility] [address] [place] [address] Dr. Vivian Quintanilla Neutrophils/100 WBC (Bld) 55.8 % Normal 43.0-75.0 [facility] Comment on above: Performed By: #### C BC #### [facility] [address] [place] [address] Dr. Vivian Quintanilla Platelet mean volume (Bld) [Entitic vol] 10.4 fL Normal 9.5-13.5 [facility] Comment on above: Performed By: #### C BC #### [facility] [address] [place] [address] Dr. Vivian Quintanilla PLT 241 103/ul Normal 150-450 [facility] Comment on above: Performed By: #### C BC #### [facility] [address] [place] [address] Dr. Vivian Quintanilla RBC 5.09 106/ul Normal 4.70-6.10 [facility] Comment on above: Performed By: #### C BC #### [facility] [address] [place], [place] [address] Dr. Vivian Quintanilla WBC 6.1 103/ul Normal 4.0-11.0 [facility] Comment on above: Performed By: #### C BC #### [facility] [address] [place], [place] [address] ABD/PELVIS WO CONon [...] by: FREDI NAPIER Date: 2021-12-03 14:00 Normal [facility] ER URINE PROFILEon 2 Bilirubin Ql (U) Negative Normal NEGATIVE [facility] Comment on above: Performed By: #### U MICRO, ERUR #### [facility] [address] [place] [address] [address] Vivian Quintanilla Clarity (U) CLEAR Normal CLEAR [facility] Comment on above: Performed By: #### U MICRO, ERUR #### [facility] [address] [place] [address] [address] Vivian Quintanilla Color (U) YELLOW Normal YELLOW [facility] Comment on above: Performed By: #### U MICRO, ERUR #### [facility] [address] [place] [address] [address] Vivian PATEL A micrscopic examination will be performed if indicated. Normal [facility] Comment on above: Performed By: #### U MICRO, ERUR #### [facility] [address] [place] [address] Dr. Vivian Quintanilla Glucose Ql (U) Negative Normal NEGATIVE [facility] Comment on above: Performed By: #### U MICRO, ERUR #### [facility] [address] [place] [address] [address] Vivian Quintanilla Hemoglobin Ql (U) SMALL Abnormal NEGATIVE [facility] Comment on above: Performed By: #### U MICRO, ERUR #### [facility] [address] [place] [address] Dr. Vivian Quintanilla Ketones Ql (U) Negative Normal NEGATIVE [facility] Comment on above: Performed By: #### U MICRO, ERUR #### [facility] [address] [place] [address] [address] Vivian Quintanilla LEUKOCYTES Negative Normal NEGATIVE [facility] Comment on above: Performed By: #### U MICRO, ERUR #### [facility] [address] [place] [address] [address] Vivian Quintanilla Nitrite Ql (U) Negative Normal NEGATIVE [facility] [facility] Comment on above: Performed By: #### U MICRO, ERUR #### [facility] [address] [place] [address] Dr. Vivian Quintanilla pH (U) 6.0 [pH] Normal 5-9 The [facility] Comment on above: Performed By: #### U MICRO, ERUR #### [facility] [address] [place] [address] Dr. Vivian Quintanilla SPEC GRAVITY 1.025 Normal 1.005-<=1.025 The [facility] Comment on above: Performed By: #### U MICRO, ERUR #### [facility] [address] [place] [address] Dr. Vivian Quintanilla UA PROTEIN Negative Normal NEGATIVE/ TRACE The [facility] Comment on above: Performed By: #### U MICRO, ERUR #### [facility] [address] [place] [address] Dr. Vivian Quintanilla UR MICRO IND INDICATED Normal [facility] Comment on above: Performed By: #### U MICRO, ERUR #### [facility] [address] [place] [address] Dr. Vivian Quintanilla Urobilinogen Qn (U) 0.2 {Padmini'U}/dL Normal 0.2 - 1. 0 [facility] Comment on above: Performed By: #### U MICRO, ERUR #### [facility] [address] [place] [address] Dr. Vivian Quintanilla LIPASEon 12-03-2021 Lipase [Catalytic activity/Vol] 108.0 U/L Normal 73.0-393.0 [facility] Comment on above: Performed By: #### C MP, LIPA #### [facility] [address] [place] [address] Dr. Vivian Quintanilla PROF 14(COMP METB)on 022 Albumin [Mass/Vol] 3.7 g/dL Normal 3.4-5.[address] [facility] Comment on above: Performed By: #### C MP, LIPA #### [facility] [address] [place] [address] Dr. Vivian Quintanilla Albumin/Globulin [Mass ratio] 1.1 {ratio} Normal [facility] Comment on above: Performed By: #### C MP, LIPA #### [facility] [address] [address] [address] Vivian Quintanilla ALP [Catalytic activity/Vol] 72 U/L Normal 46-116 [facility] Comment on above: Performed By: #### C MP, LIPA #### [facility] [address] [address] [address] Vivian Quintanilla ALT [Catalytic activity/Vol] 45 U/L Normal 16-63 [facility] Comment on above: Performed By: #### C MP, LIPA #### [facility] [address] [address] [address] Vivian Quintanilla Anion gap [Moles/Vol] 11.5 mmol/L Normal [facility] Comment on above: Performed By: #### C MP, LIPA #### [facility] [address] [place] [address] Dr. Vivian Quintanilla AST [Catalytic activity/Vol] 19 U/L Normal 15-37 [facility] Comment on above: Performed By: #### C MP, LIPA #### [facility] [address] [address] [address] Vivian Quintanilla Bilirubin [Mass/Vol] 0.5 mg/dL Normal 0.2-1.0 [facility] Comment on above: Performed By: #### C MP, LIPA #### [facility] [address] [address] [address] Vivian Quintanilla Calcium [Mass/Vol] 8.9 mg/dL Normal 8.5-10.[address] [facility] Comment on above: Performed By: #### C MP, LIPA #### [facility] [address] [address] [address] Vivian Quintanilla Chloride [Moles/Vol] 106 mmol/L Normal 98-107 [facility] Comment on above: Performed By: #### C MP, LIPA #### [facility] [address] [address] [address] Vivian Quintanilla CO2 [Moles/Vol] 26.1 mmol/L Normal 21.0-32.[address] [facility] Comment on above: Performed By: #### C MP, LIPA #### [facility] [address] [address] [address] Vivian Quintanilla Creatinine [Mass/Vol] 1.24 mg/dL Normal 0.70-1.30 [facility] Comment on above: Performed By: #### C MP, LIPA #### [facility] [address] [address] [address] Vivian Quintanilla EGFR-AF IVORIAN >60 Normal >=[address] [facility] Comment on above: Performed By: #### C MP, LIPA #### [facility] [address] [address] [address] Vivian Quintanilla EGFR-NON AF IVORIAN >60 Normal >=60 [facility] Comment on above: Performed By: #### C MP, LIPA #### [facility] [address] [address] [address] Vivian Quintanilla Globulin (S) [Mass/Vol] 3.4 g/dL Normal [facility] Comment on above: Performed By: #### C MP, LIPA #### [facility] [address] [address] [address] Vivian Quintanilla Glucose [Mass/Vol] 147 mg/dL Critically high 74-106 [facility] Comment on above: Performed By: #### C MP, LIPA #### [facility] [address] [address] [address] Vivian Quintanilla Potassium [Moles/Vol] 3.6 mmol/L Normal 3.5-5.1 [facility] Comment on above: Performed By: #### C MP, LIPA #### [facility] [address] [address] [address] Vivian Quintanilla Protein [Mass/Vol] 7.1 g/dL Normal 6.4-8.2 [facility] Comment on above: Performed By: #### C MP, LIPA #### [facility] [address] [address] [address] Vivian Quintanilla Sodium [Moles/Vol] 140 mmol/L Normal 136-145 [facility] Comment on above: Performed By: #### C MP, LIPA #### [facility] [address] [address] [address] Vivian Quintanilla Urea nitrogen [Mass/Vol] 11.0 mg/dL Normal 7.0-18.0 The [facility] Comment on above: Performed By: #### C MP, LIPA #### [facility] [address] [address] [address] Vivian Quintanilla Urea nitrogen/Creatinine [Mass ratio] 8.9 mg/mg Normal The [facility] Comment on above: Performed By: #### C MP, LIPA #### [facility] [address] [address] [address] Vivian Quintanilla URINE MICROSCOPIC ONLYon BACTERIA NONE SEEN Normal NONE SEEN The [facility] Comment on above: Performed By: #### U MICRO, ERUR #### [facility] [address] [place] [address] Dr. Vivian Quintanilla Bacteria identified Cx Nom (U) NOT INDICATED Normal The [facility] Comment on above: Performed By: #### U MICRO, ERUR #### [facility] [address] [place] [address] Dr. Vivian Quintanilla CAST NONE SEEN Normal NONE SEEN The [facility] Comment on above: Performed By: #### U MICRO, ERUR #### [facility] [address] [place] [address] Dr. Vivian Quintanilla Crystals LM Nom (Urine sed) NONE SEEN Normal NONE SEEN The [facility] Comment on above: Performed By: #### U MICRO, ERUR #### [facility] [address] [place] [address] Dr. Vivian Quintanilla Epithelial cells LM Ql (Urine sed) FEW Abnormal NONE SEEN /RARE The [facility] Comment on above: Performed By: #### U MICRO, ERUR #### [facility] [address] [place] [address] Dr. Vivian Quintanilla MUCOUS NONE SEEN Normal NONE SEEN The [facility] Comment on above: Performed By: #### U MICRO, ERUR #### [facility] [address] [place] [address] Dr. Vivian Quintanilla RBC 2-5 Abnormal 0-2 [facility] Comment on above: Performed By: #### U MICRO, ERUR #### [facility] [address] [address] [address] Vivian Quintanilla WBC NONE SEEN Normal NONE SEEN [facility] Comment on above: Performed By: #### U MICRO, ERUR #### [facility] [address] [address] [address] Vivian Quintanilla Vital Signs Date Time Vital Sign Value Performing Clinician Facility 08-28-2024 11:04-0400 Body mass index (BMI) [Ratio] 29.94 kg/m2 Chayito Simona AGRICULTURAL EDUCATION PROFESSOR Work Phone: [facility] 08-28-2024 11:04-0400 Body temperature 98.49 [degF] Chayito Celsohumbertoz AGRICULTURAL EDUCATION PROFESSOR Work Phone: [facility] 08-28-2024 11:04-0400 Body weight 76.66 kg Chayito Simona AGRICULTURAL EDUCATION PROFESSOR Work Phone: [facility] 08-28-2024 11:04-0400 Diastolic blood pressure 90 mm[Hg] Chayito Celsohvaldoz AGRICULTURAL EDUCATION PROFESSOR Work Phone: [facility] 08-28-2024 11:04-0400 Heart rate 79 /min Chayito Celsohholz AGRICULTURAL EDUCATION PROFESSOR Work Phone: [facility] 08-28-2024 11:04-0400 Respiratory rate 18 /min Chayito Simona AGRICULTURAL EDUCATION PROFESSOR Work Phone: [facility] 08-28-2024 11:04-0400 SaO2% (BldA) [Mass fraction] 96 % Chayito Celsohumbertoz AGRICULTURAL EDUCATION PROFESSOR Work Phone: [facility] 08-28-2024 11:04-0400 Systolic blood pressure 122 mm[Hg] Chayito Christiez AGRICULTURAL EDUCATION PROFESSOR Work Phone: [facility] 08-14-2024 11:22-0400 Body mass index (BMI) [Ratio] 30.47 kg/m2 Chayito Simona AGRICULTURAL EDUCATION PROFESSOR Work Phone: [facility] 08-14-2024 11:22-0400 Body temperature 97.81 [degF] Chayito Jarvis AGRICULTURAL EDUCATION PROFESSOR Work Phone: [facility] 08-14-2024 11:22-0400 Body weight 78.02 kg Chayito Jarvis AGRICULTURAL EDUCATION PROFESSOR Work Phone: [facility] 08-14-2024 11:22-0400 Diastolic blood pressure 86 mm[Hg] Chayito Jarvis AGRICULTURAL EDUCATION PROFESSOR Work Phone: [facility] 08-14-2024 11:22-0400 Heart rate 86 /min Chayito Jarvis AGRICULTURAL EDUCATION PROFESSOR Work Phone: [facility] 08-14-2024 11:22-0400 Respiratory rate 18 /min Chayito Jarvis AGRICULTURAL EDUCATION PROFESSOR Work Phone: [facility] 08-14-2024 11:22-0400 SaO2% (BldA) [Mass fraction] 97 % Chayito Jarvis AGRICULTURAL EDUCATION PROFESSOR Work Phone: [facility] 08-14-2024 11:22-0400 Systolic blood pressure 136 mm[Hg] Chayito Jarvis AGRICULTURAL EDUCATION PROFESSOR Work Phone: [facility] 07-09-2024 09:33-0500 Body height 160 cm Boyd Desouza MD Work Phone: [facility] 07-09-2024 09:33-0500 Body mass index (BMI) [Ratio] 30.29 kg/m2 Boyd Desouza MD Work Phone: [facility] 07-09-2024 09:33-0500 Body temperature 98.4 [degF] Boyd Desouza MD Work Phone: [facility] 07-09-2024 09:33-0500 Body weight 77.56 kg Boyd Desouza MD Work Phone: [facility] 07-09-2024 09:33-0500 Diastolic blood pressure 68 mm[Hg] Boyd Desouza MD Work Phone: [facility] 07-09-2024 09:33-0500 Heart rate 94 /min Boyd Desouza MD Work Phone: [facility] 07-09-2024 09:33-0500 Respiratory rate 22 /min Boyd Desouza MD Work Phone: [facility] 07-09-2024 09:33-0500 SaO2% (BldA) [Mass fraction] 95 % Boyd Desouza MD Work Phone: [facility] 07-09-2024 09:33-0500 Systolic blood pressure 126 mm[Hg] Boyd Desouza MD Work Phone: [facility] 08-17-2023 09:47-0400 Body height 162.56 cm [facility] 08-17-2023 09:47-0400 Body mass index (BMI) [Ratio] 30.9 kg/m2 [facility] 08-17-2023 09:47-0400 Body temperature 98.9 [degF] [facility] 08-17-2023 09:47-0400 Body weight 81.64 kg [facility] 08-17-2023 09:47-0400 Heart rate 105 /min [facility] 08-17-2023 09:47-0400 Respiratory rate 18 /min [facility] 08-17-2023 09:47-0400 SaO2% (BldA) [Mass fraction] 98 % [facility] 02-26-2023 10:31-0400 Blood Pressure Location Ray MONTERO [facility] 02-26-2023 10:31-0400 Diastolic blood pressure 80 mm[Hg] Ray MONTERO [facility] 02-26-2023 10:31-0400 Heart rate 79 /min Ray MONTERO [facility] 02-26-2023 10:31-0400 Respiratory rate 16 /min Ray MONTERO [facility] 02-26-2023 10:31-0400 Systolic blood pressure 139 mm[Hg] Ray MONTERO [facility] 04-19-2022 15:28-0500 Blood Pressure Location Lia RICE [facility] 04-19-2022 15:28-0500 Diastolic blood pressure 88 mm[Hg] Lia RICE [facility] 04-19-2022 15:28-0500 Heart rate 82 /min Lia RICE [facility] 04-19-2022 15:28-0500 Mean blood pressure 103 mm[Hg] Lia RICE [facility] 04-19-2022 15:28-0500 Respiratory rate 18 /min Lia RICE [facility] 04-19-2022 15:28-0500 SaO2% (BldA) [Mass fraction] 97 % Lia RICE [facility] 04-19-2022 15:28-0500 Systolic blood pressure 132 mm[Hg] Lia RICE [facility] 04-19-2022 14:35-0500 Blood Pressure Location Lia RICE [facility] 04-19-2022 14:35-0500 Diastolic blood pressure 79 mm[Hg] Lia RICE [facility] 04-19-2022 14:35-0500 Heart rate 84 /min Lia RICE [facility] 04-19-2022 14:35-0500 Mean blood pressure 96 mm[Hg] Lia RICE [facility] 04-19-2022 14:35-0500 Respiratory rate 16 /min Lia RICE [facility] 04-19-2022 14:35-0500 SaO2% (BldA) [Mass fraction] 97 % Lia RICE [facility] 04-19-2022 14:35-0500 Systolic blood pressure 130 mm[Hg] Lia RICE [facility] 04-19-2022 14:30-0500 Blood Pressure Location Lia Veduca [facility] 04-19-2022 14:30-0500 Body temperature 97.16 [degF] Lia Veduca [facility] 04-19-2022 14:30-0500 Diastolic blood pressure 88 mm[Hg] Lia Veduca [facility] 04-19-2022 14:30-0500 Heart rate 76 /min Lia Veduca [facility] 04-19-2022 14:30-0500 Mean blood pressure 102 mm[Hg] Lia Veduca [facility] 04-19-2022 14:30-0500 Respiratory rate 12 /min Lia Veduca [facility] 04-19-2022 14:30-0500 SaO2% (BldA) [Mass fraction] 94 % Lia RICE [facility] 04-19-2022 14:30-0500 Systolic blood pressure 130 mm[Hg] Lia RICE [facility] 04-19-2022 14:20-0500 Respiratory rate 14 /min Lia RICE [facility] 04-19-2022 14:15-0500 Respiratory rate 13 /min Lia Veduca [facility] 04-19-2022 14:07-0500 Body temperature 97.16 [degF] Lia Veduca [facility] 04-19-2022 14:05-0500 Respiratory rate 5 /min Lia RICE [facility] 04-19-2022 11:48-0500 Heart rate 80 /min Lia RICE [facility] 04-19-2022 11:47-0500 Body temperature 97.52 [degF] Lia RICE [facility] 01-13-2022 10:22-0400 Body temperature 97.88 [degF] Lia RICE [facility] 01-13-2022 10:22-0400 Diastolic blood pressure 88 mm[Hg] Lia RICE [facility] 01-13-2022 10:22-0400 Heart rate 74 /min Lia RICE [facility] 01-13-2022 10:22-0400 Mean blood pressure 103 mm[Hg] Lia RICE [facility] 01-13-2022 10:22-0400 Systolic blood pressure 134 mm[Hg] Lia RICE [facility] 01-13-2022 10:21-0400 Blood Pressure Location Lia RICE [facility] 01-13-2022 10:21-0400 BP/Pulse Patient Position Lia RICE [facility] 01-13-2022 10:21-0400 Diastolic blood pressure 79 mm[Hg] Lia RICE [facility] 01-13-2022 10:21-0400 Heart rate 79 /min Lia RICE [facility] 01-13-2022 10:21-0400 Mean blood pressure 93 mm[Hg] Lia RICE [facility] 01-13-2022 10:21-0400 Respiratory rate 18 /min Lia Veduca [facility] 01-13-2022 10:21-0400 SaO2% (BldA) [Mass fraction] 97 % Lia Veduca [facility] 01-13-2022 10:21-0400 Systolic blood pressure 121 mm[Hg] Lia Veduca [facility] Encounters Encounter Date Encounter Type Care Provider Facility Start: 08-28-2024 End: 08-28-2024 Bamboo flowsheet Chayito Simona AGRICULTURAL EDUCATION PROFESSOR Work Phone: [facility] Start: 08-28-2024 End: 08-28-2024 Bamboo flowsheet Chayito Aichumbertoz AGRICULTURAL EDUCATION PROFESSOR Work Phone: [facility] Start: 08-28-2024 End: 08-28-2024 Office outpatient visit 15 minutes Chayito Simona AGRICULTURAL EDUCATION PROFESSOR Work Phone: [facility] Comment on above: Subacute cough (Prim jeremie Dx); Pharyngitis, unspecified etiology; Seborrheic keratosis Start: 08-28-2024 End: 08-28-2024 ambulatory CHAYITO AICHHOLZ Not Available Start: 08-16-2024 End: 08-16-2024 Orders Only Chayito Simona AGRICULTURAL EDUCATION PROFESSOR Work Phone: [facility] Comment on above: Pharyngitis, unspeci fied etiology (Primary Dx) Start: 08-14-2024 End: 08-14-2024 Bamboo flowsheet Chayito Aichholz AGRICULTURAL EDUCATION PROFESSOR Work Phone: [facility] Start: 08-14-2024 End: 08-14-2024 Bamboo flowsheet Chayito Aichholz AGRICULTURAL EDUCATION PROFESSOR Work Phone: [facility] Start: 08-14-2024 End: 08-14-2024 ambulatory CHAYITO AICHHOLZ Not Available Start: 08-14-2024 End: 08-14-2024 Office outpatient visit 15 minutes Chayito Simona AGRICULTURAL EDUCATION PROFESSOR Work Phone: [facility] Comment on above: Pharyngitis, unspeci fied etiology (Primary Dx); Subacute maxillary sinusitis; Subacute cough Start: 08-05-2024 End: 08-05-2024 ambulatory CHAYITO CELSOWesTIARRA Not Available Start: 07-18-2024 End: 07-18-2024 ambulatory EMMY SHANNON Facility:[facility] Start: 07-14-2024 End: 07-14-2024 Clinisync Result Encounter Generic External Data Provider [facility] External Department Unsolicited Start: 07-14-2024 End: 07-14-2024 Clinisync Result Encounter Generic External Data Provider [facility] External Department Unsolicited Start: 07-14-2024 End: 07-14-2024 ambulatory Ray MONTERO Facility:[facility] Start: 07-14-2024 End: 07-14-2024 Patient encounter procedure Ray MONTERO [facility] Start: 07-09-2024 End: 07-09-2024 Bambochin flowsheet Boyd Desouza MD Work Phone: [facility] [...] Not Available Start: 08-17-2023 End: 08-17-2023 ambulatory [facility] Work Phone: Start: 08-17-2023 End: 08-17-2023 Patient encounter procedure [facility] Work Phone: Start: 05-25-2023 End: 05-25-2023 Lab Drop off Ray R JOSHUA [facility] Start: 05-25-2023 End: 05-25-2023 Patient encounter procedure Ray R JOSHUA [facility] Start: 02-26-2023 End: 02-26-2023 Patient encounter procedure Ray R JOSHUA [facility] Start: 05-08-2022 End: 05-09-[address] LIA FORBES Facility:[facility] Start: 04-19-2022 End: 04-19-2022 Admission to same day surgery center Lia FORBES [facility] Start: 01-28-2022 End: 01-28-[address] BOYD DESOUZA Facility:[facility] Start: 01-13-2022 End: 01-13-2022 Patient encounter procedure Lia FORBES [facility] Start: 12-07-2021 End: 01-20-2022 Pre-admission assessment [facility] Start: 12-03-2021 End: 12-03-[address] BOYD DESOUZA Facility:[facility] Start: 10-04-2021 End: 10-04-2021 Patient encounter procedure [facility] Procedures Date Procedure Procedure Detail Performing Clinician Start: 07-14-2024 XR ABDOMEN 1V Generic External Data Provider Start: 07-09-2024 STATUS COVID-19/FLU Boyd Desouza MD Work Phone: Start: 04-19-2022 Extracorporeal shockwave lithotripsy of calculus of kidney Lia Veduca Start: 01-25-2022 Extracorporeal shockwave lithotripsy of ureter Lia Veduca Abrasion, elbow area (disorder) Lia Veduca Appendectomy Lia Veduca Esophagogastroduoden oscopy gastric outlet reduction Lia Veduca Plan of Treatment Date Care Activity Detail Author Start: 01-12-2025 Influenza vaccination Influenz a Vaccine (Season Ended) [facility] Start: 01-07-2025 End: 01-07-2025 Patient encounter procedure 01/07/2025 1:00 PM EDT Office Visit [facility] [address] [place] [id number] Boyd Desouza MD [address] [place] [phone] [facility] Start: 10-14-2024 End: 10-14-2024 Patient encounter procedure 10/14/2024 3:20 PM EDT Office Visit [facility] [address] [place] [phone] Chayito Jarvis NP [address] [place] [phone] [facility] Start: 08-28-2024 End: 08-28-2024 Patient encounter procedure [facility] Comment on above: Subacute cough (Prim jeremie Dx); Pharyngitis, unspecified etiology Start: 08-16-2024 End: 08-16-2025 Mononucleosis screen Mononucleosis screen Lab Routine Pharyngitis, unspecified etiology Expected: 08/16/2024 (Approximate), Expires: 08/16/2025 [facility] Work Phone: Comment on above: Expected: 08/16/2024 (Approximate), Expires: 08/16/2025 Start: 08-14-2024 End: 08-14-2025 PHARYNGITIS/LARYNGITIS (HTRX) PHARYNGITIS/LARYNGITIS (HTRX) Lab Routine Pharyngitis, unspecified etiology Expected: 08/14/2024 (Approximate), Expires: 08/14/2025 [facility] [place] Work Phone: Comment on above: Expected: 08/14/2024 (Approximate), Expires: 08/14/2025 Start: 07-09-2024 End: 07-09-2024 Patient encounter procedure 07/09/2024 9:15 AM EST Office Visit [facility] [address] [place] [phone] Boyd Desouza MD [address] [place] [id number] Arrived [facility] Comment on above: Arrived Start: 01-13-2024 Influenza vaccination Influenza Vacc ine (#1) [facility] Immunizations Immunization Date Immunization Notes Care Provider Fa cility 06-04-2023 Influenza, injectable, Madin Megha Canine Kidney, preservative free, quadrivalent Chayito Jarvis [employer]IC[employer] EDUCATION PROFESSOR Work Phone: [facility] 06-04-2023 influenza virus vaccine, unspecified formulation Boyd Desouza MD Work Phone: [facility] 04-03-2000 hepatitis B vaccine, pediatric or pediatric/adolescent dosage Ray MONTERO [facility] 02-01-2000 hepatitis B vaccine, pediatric or pediatric/adolescent dosage Ray MONTERO [facility] 02-01-2000 measles, mumps and rubella virus vaccine Rayangel MONTERO [facility] 12-23-1997 hepatitis B vaccine, pediatric or pediatric/adolescent dosage Ray MONTERO [facility] 12-12-1991 diphtheria, tetanus toxoids and pertussis vaccine Chayito Aichholz AGRICULTURAL EDUCATION PROFESSOR Work Phone: [facility] 12-12-1991 trivalent poliovirus vaccine, live, oral Chayito Aichholz AGRICULTURAL EDUCATION PROFESSOR Work Phone: [facility] 04-21-1988 haemophilus influenzae type b vaccine, conjugate unspecified formulation Chayito Aicwesholz AGRICULTURAL EDUCATION PROFESSOR Work Phone: [facility] 04-21-1988 Hib, unspecified formulation Ray MONTERO [facility] 08-10-1987 diphtheria, tetanus toxoids and acellular pertussis vaccine, unspecified formulation Chayito Divinaholz AGRICULTURAL EDUCATION PROFESSOR Work Phone: [facility] 08-10-1987 DTaP, unspecified formulation Ray MONTERO [facility] 08-10-1987 measles, mumps and rubella virus vaccine Rayangel MONTERO [facility] 08-10-1987 trivalent poliovirus vaccine, live, oral Chayito Aichholz AGRICULTURAL EDUCATION PROFESSOR Work Phone: [facility] 07-01-1987 diphtheria, tetanus toxoids and pertussis vaccine Chayito Aichholz AGRICULTURAL EDUCATION PROFESSOR Work Phone: [facility] 1986 diphtheria, tetanus toxoids and pertussis vaccine Chayito Aichholz AGRICULTURAL EDUCATION PROFESSOR Work Phone: [facility] 1986 diphtheria, tetanus toxoids and pertussis vaccine Chayito Aichholz AGRICULTURAL EDUCATION PROFESSOR Work Phone: [facility] 1986 trivalent poliovirus vaccine, live, oral Chayito Divinaholz AGRICULTURAL EDUCATION PROFESSOR Work Phone: [facility] 1986 diphtheria, tetanus toxoids and pertussis vaccine Chayitonate Murciaholz AGRICULTURAL EDUCATION PROFESSOR Work Phone: [facility] 1986 trivalent poliovirus vaccine, live, oral Chayito Aichholz AGRICULTURAL EDUCATION PROFESSOR Work Phone: [facility] NEGATED: Highlighted row has not occurred!12-06-2021 SARS-CoV-2 mRNA (tozinameran 5y-11y) vaccine Heriberto Heart Jr. [facility] Payers Date Payer Category Payer [facility] [id number] 2022 Unknown [id number] 1986 Unknown [id number]. [id number] 1986 Unknown [id number]. [id number] 1986 Unknown [id number] [id number]. 2.59 1986 Unknown [id number] [id number]. 2.727 1986 Unknown [id number] [id number]. 2.727 1986 Unknown [id number] [id number]. 2.9 1986 Unknown [id number] [id number]. 2.9 1986 Unknown [id number] [id number]. 2.9 1986 Unknown [id number] [id number]. 2.9 1986 Unknown [id number]. 2.1259 1959 Unknown [id number] Social History Date Type Detail Facility Tobacco smoking status [facility] Start: 09-21-2023 End: 08-14-2024 Sex Assigned At Male [facility] Start: 12-06-2021 End: 09-21-2023 Tobacco smoking status Never smoked tobacco (finding) [facility] Tobacco smoking status Never [facility] Start: 1985 Sex Assigned At Male F [facility] Start: 09-21-2023 Tobacco use and exposure Smokeless tobacco non-user [facility] Start: 09-21-2023 End: 08-14-2024 History of Social function [facility] Start: 1985 Sex assigned at Not on file [facility] Functional Status Date Assessment Result Facility 02-26-2023 Functional Status N/A [facility] 04-19-2022 Functional Status No [facility] 04-04-2022 Functional Status No [facility] 01-13-2022 Functional Status No [facility] Clinical Notes 10-04-2021 to 08-28-2024 Chayito Jarvis NP - 08/28/2024 11:50 AM DEWAYNE ASH - 08/28/2024 11:00 AM Peggy Jarvis NP - 08/28/2024 11:00 AM Peggy Jarvis NP - 08/28/2024 6:56 AM EDTPatient Instructions Note Date & Type Note Facility 08-28-2024 History of Presen t illness Narrative Associated Problem(s): Seborrheic keratosis Reassurance I suspect SK If he would like removed we can schedule in office or possibly refer to derm Pt would like to talk about a mole on his back. Images from the original note were not included. Dai Estevez is a 39 y.o. male presents with chief complaint of No chief complaint on file. HPI: Here for recheck, is doing better Less coughing, he believes the sore in throat is resolved Would like a mole looked at, on the left side of thoracic region No bleeding, sl irritative, does feel like it is getting bigger SUBJECTIVE: MEDICATIONS: Current Outpatient Medications Medication Instructions Effer-K 25 MEQ effervescent tablet ALLOW 1 TABLET TO DISSOLVE IN 4 OUNCES OF WATER BEFORE DRINKING TWICE DAILY fluticasone (Flonase) 50 MCG/ACT nasal spray USE 2 SPRAYS IN EACH NOSTRIL DAILY.SHAKE GENTLY.BEFORE FIRST USE,PRIME PUMP.AFTER USE,CLEAN TIP AND REPLACE CAP. tamsulosin (FLOMAX) 0.4 mg, Daily ALLERGIES: Allergies Allergen Reactions Codeine REVIEW OF SYMPTOMS: Review of Systems Constitutional: Negative for activity change, appetite change and unexpected weight change. HENT: Negative for ear pain, nosebleeds, sneezing, trouble swallowing and voice change. Eyes: Negative for pain, discharge and visual disturbance. Respiratory: Negative for apnea, chest tightness and wheezing. Cardiovascular: Negative for leg swelling. Gastrointestinal: Negative for abdominal distention, blood in stool, constipation and diarrhea. Genitourinary: Negative for decreased urine volume, difficulty urinating, dysuria and hematuria. Skin: Positive for color change. Neurological: Negative for dizziness, tremors and seizures. Psychiatric/Behavioral: Negative for agitation, decreased concentration, hallucinations, self-injury and suicidal ideas. The patient is not nervous/anxious. Hematological: Negative for adenopathy. Does not bruise/bleed easily. Endocrine: Negative for cold intolerance, heat intolerance, polydipsia and polyuria. Allergic/Immunologic: Negative for environmental allergies and food allergies. PAST MEDICAL HISTORY History reviewed. No pertinent past medical history. History reviewed. No pertinent surgical history. family history is not on file. OBJECTIVE: Visit Vitals BP 122/90 (BP Location: Left arm, Patient Position: Sitting, BP Cuff Size: Adult long) Pulse 79 Temp 98.5 F (Temporal) Resp 18 Wt 169 lb SpO2 96% BMI 29.94 kg/m Smoking Status Never BSA 1.85 m Physical Exam Vitals and nursing note reviewed. Constitutional: Appearance: Normal appearance. HENT: Head: Normocephalic. Right Ear: Tympanic membrane, ear canal and external ear normal. Left Ear: Tympanic membrane, ear canal and external ear normal. Nose: Rhinorrhea present. No congestion. Mouth/Throat: Mouth: Mucous membranes are moist. Pharynx: Oropharynx is clear. No oropharyngeal exudate or posterior oropharyngeal erythema. Comments: Prior ulcer, is improving, ulcer is gone but still w erythema, no exudate Eyes: Extraocular Movements: Extraocular movements intact. Conjunctiva/sclera: Conjunctivae normal. Cardiovascular: Rate and Rhythm: Normal rate and regular rhythm. Pulses: Normal pulses. Heart sounds: Normal heart sounds. No murmur heard. Pulmonary: Effort: Pulmonary effort is normal. Breath sounds: Normal breath sounds. No wheezing or rales. Musculoskeletal: Cervical back: Neck supple. Lymphadenopathy: Cervical: No cervical adenopathy. Skin: General: Skin is warm and dry. Capillary Refill: Capillary refill takes 2 to 3 seconds. Findings: Lesion (skin lesion left subscapular region: measures 1cmX0.5cm scaley no ulcerations, no erythema ..??SK) present. Neurological: General: No focal deficit present. Mental Status: He is alert. Psychiatric: Mood and Affect: Mood normal. Behavior: Behavior normal. Thought Content: Thought content normal. Judgment: Judgment normal. ASSESSMENT AND PLAN: Follow up in about 1 month (around 09/27/2024) for Recheck. Problem List Items Addressed This Visit Seborrheic keratosis Reassurance I suspect SK If he would like removed we can schedule in office or possibly refer to derm Subacute cough - Primary Much improved Pharyngitis At last visit had ulceration left tonsilar region, still present, spoke with Mich Desouza agrees with culture if normal consider test for mono This was communicated to the pt on 08/14/24 at 16:42pm 08/28/24 improved in that there is no longer an ulceration, however area is still erythema, no exudate Associated Problem(s): Pharyngitis At last visit had ulceration left tonsilar region, still present, spoke with Mich Desouza agrees with culture if normal consider test for mono This was communicated to the pt on 08/14/24 at 16:42pm 08/28/24 improved in that there is no longer an ulceration, however area is still erythema, no exudate Associated Problem(s): Subacute cough Much improved documented in this encounter [facility] 08-28-2024 Instructions Chayito Jarvis NP - 08/28/2024 11:00 AM EDT Sore in throat is getting better, now only reddened no ulcer I would like to see you in 1 month to document that it has completely resolved documented in this encounter [facility] 08-14-2024 History of Presen t illness Narrative Pt states he is still having a cough when talking, drainage and phlegm still, coughing up clear mucus He states that he feels maybe 10-20% better Pt is now having soreness on left side of the jaw, sore throat. Sore in the back of the throat has not gotten any better. Images from the original note were not included. Dai Estevez is a 39 y.o. male presents with chief complaint of No chief complaint on file. HPI: Pt states he is still having a cough when talking, drainage and phlegm still, coughing up clear mucus He states that he feels maybe 10-20% better Pt is now having soreness on left side of the jaw, sore throat. Sore in the back of the throat has not gotten any better. Here for recheck: finished atb Still with cough, although between atb and cough med is somewhat improved no fever, more of a cough when talking No significant changes in his ulcer to left tonsilar region, +soreness w drinking SUBJECTIVE: MEDICATIONS: Current Outpatient Medications Medication Instructions amoxicillin-clavulanate (Augmentin) 875-125 MG tablet 875 mg, Oral, 2 times daily, Take with food brompheniramine-pseudoephedrin e-DM 30-2-10 MG/5ML syrup 5 mL, Oral, 4 times daily PRN cetirizine (ZYRTEC) 10 mg, Oral, Daily Effer-K 25 MEQ effervescent tablet ALLOW 1 TABLET TO DISSOLVE IN 4 OUNCES OF WATER BEFORE DRINKING TWICE DAILY fluticasone (Flonase) 50 MCG/ACT nasal spray USE 2 SPRAYS IN EACH NOSTRIL DAILY.SHAKE GENTLY.BEFORE FIRST USE,PRIME PUMP.AFTER USE,CLEAN TIP AND REPLACE CAP. tamsulosin (FLOMAX) 0.4 mg, Daily ALLERGIES: Allergies Allergen Reactions Codeine REVIEW OF SYMPTOMS: Review of Systems Constitutional: Negative for activity change, appetite change and unexpected weight change. HENT: Positive for sore throat. Negative for ear pain, nosebleeds, sneezing, trouble swallowing and voice change. Eyes: Negative for pain, discharge and visual disturbance. Respiratory: Positive for cough. Negative for apnea, chest tightness and wheezing. Cardiovascular: Negative for leg swelling. Gastrointestinal: Negative for abdominal distention, blood in stool, constipation and diarrhea. Genitourinary: Negative for decreased urine volume, difficulty urinating, dysuria and hematuria. Skin: Negative for color change. Neurological: Negative for dizziness, tremors and seizures. Psychiatric/Behavioral: Negative for agitation, decreased concentration, hallucinations, self-injury and suicidal ideas. The patient is not nervous/anxious. Hematological: Negative for adenopathy. Does not bruise/bleed easily. Endocrine: Negative for cold intolerance, heat intolerance, polydipsia and polyuria. Allergic/Immunologic: Negative for environmental allergies and food allergies. PAST MEDICAL HISTORY No past medical history on file. No past surgical history on file. family history is not on file. OBJECTIVE: Visit Vitals BP 136/86 (BP Location: Left arm, Patient Position: Sitting, BP Cuff Size: Adult long) Pulse 86 Temp 97.8 F (Temporal) Resp 18 Wt 172 lb SpO2 97% BMI 30.47 kg/m Smoking Status Never BSA 1.86 m Physical Exam Vitals and nursing note reviewed. Constitutional: Appearance: Normal appearance. He is not ill-appearing. HENT: Head: Normocephalic. Right Ear: Tympanic membrane, ear canal and external ear normal. Left Ear: Tympanic membrane, ear canal and external ear normal. Nose: Nose normal. No congestion or rhinorrhea. Mouth/Throat: Mouth: Mucous membranes are moist. Pharynx: Oropharynx is clear. Comments: Left tonsilar region with ulceration measures approx 10mm, mild-mod erythema, no exudate: culture obtained Eyes: Extraocular Movements: Extraocular movements intact. Conjunctiva/sclera: Conjunctivae normal. Cardiovascular: Rate and Rhythm: Normal rate and regular rhythm. Pulses: Normal pulses. Heart sounds: Normal heart sounds. Pulmonary: Effort: Pulmonary effort is normal. Breath sounds: Normal breath sounds. Musculoskeletal: Cervical back: Neck supple. Right lower leg: No edema. Left lower leg: No edema. Lymphadenopathy: Cervical: Cervical adenopathy (mild adenopathy left) present. Skin: General: Skin is warm and dry. Capillary Refill: Capillary refill takes 2 to 3 seconds. Neurological: General: No focal deficit present. Mental Status: He is alert. Psychiatric: Mood and Affect: Mood normal. Behavior: Behavior normal. Thought Content: Thought content normal. Judgment: Judgment normal. ASSESSMENT AND PLAN: No follow-ups on file. Problem List Items Addressed This Visit Subacute maxillary sinusitis Given atb at last visit Pharyngitis - Primary At last visit had ulceration left tonsilar region Relevant Orders PHARYNGITIS/LARYNGITIS (HTRX) Associated Problem(s): Subacute maxillary sinusitis Given atb at last visit Associated Problem(s): Pharyngitis At last visit had ulceration left tonsilar region, still present, spoke with Mich Desouza agrees with culture if normal consider test for mono This was communicated to the pt on 08/14/24 at 16:42pm documented in this encounter [facility] 07-18-2024 Note Patient Education Urology Kidney Stones [...] these instructions at home: Medicines ??? Take ozkb-xyv-itzzcdp and prescription medicines only as told by [...] provider. Document Revised: 12/22/2022 Document Reviewed: 12/22/2022 [employer] [place] Patient Education ? 2023 [employer]. [facility] 07-09-2024 History of Presen t illness Narrative [...] Orders STATUS COVID-19/FLU documented in this encounter [facility] 07-09-2023 Hospital Discharg e instructions Follow Up Care 07/09/2023 13:36:55 With:JOSHUA EATON, Ray Eisenberg, URL Address: [facility] [address] [place] [phone] When: Unknown [facility] 02-26-2023 Hospital Discharg e instructions Patient [...] include: ?8 oz (237 mL) of milk, wyjcyhx-renusxwvgzsm-mkkpv milk, and calcium-fortifiedfruit juice. Calcium-fortified means that [...] ?Spinach (cooked), rhubarb, beets, sweet potatoes, and Czech chard. ?Peanuts. ?Potato chips, grenadian fries, and baked potatoes with skin on. ?Nuts and nut products. ?Chocolate. If you regularly take a diuretic medicine, make sure to eat at least 1 or 2 servings of fruits or vegetables that are high in potassium each day. These include: ?Avocado. ?Banana. ?[place], prune, carrot, or tomato juice. ?Baked potato. [...] magnesium, fish oil, or vitamin B6. Take svbi-kcn-jlvyhpd and prescription medicines only as told by [...] Casseroles. Pizza. Lasagna. Frozen meals. Potato chips. Tajik fries. The items listed above may not [...] provider. Document Revised: 01/09/2022 Document Reviewed: 01/09/2022 [employer] [place] Patient Education 2022 [employer]. Follow Up Care 11/02/2022 14:39:45 With:JOSHUA EATON, Ray Eisenberg, URL Address: [facility] [address] , [place] [address]- When: Unknown Comments:Jeanne James ESWL [facility] 04-19-2022 Hospital Discharg e instructions Patient [...] Follow these instructions at home: Medicines Take tayn-uip-jeyanmn and prescription medicines only as told by [...] 05/19/2008 Document Revised: 08/11/2019 Document Reviewed: 03/21/2017 [employer] Patient Education 2020 [employer]. 04/19/2022 14:18:32 Post Op Patient Instructions - FT (Custom) (CUSTOM) Follow Up Care 02/28/2022 11:29:00 With:Lia FORBES Address: [address] [place] [id number] [facility] (1) When:7 to 10 days Comments:Call for followup appointment [facility] 04-19-2022 Evaluation + Plan note Extrac rich from: Title:SERGIO POSTOP Author:Agapito Sweeney DO Date: 04/19/22 Plan Transfer/ Discharge: Patient can be discharged from PACU when criteria met. Condition good. Extracted from: Title:SERGIO PREOP Author:Agapito Sweeney DO Date:06/20/21 Plan [place] [employer]hes[employer] (ASA) physical status classification: [...] Date:05/09/2022 08:30:00 AM Scheduled Provider:Lia FORBES MD Location:[facility] Appointment Type:URO Office Visit [facility]05-24-2022 Hospital Discharge instructions Patient Education 10/04/2021 10:28:51 Kidney Stones, Tkrr-id-Ydbv Kidney Stones Kidney stones are rock-like masses [...] Follow these instructions at home: Medicines Take xufl-knl-uawefsn and prescription medicines only as told by [...] 10/16/2008 Document Revised: 09/16/2019 Document Reviewed: 09/16/2019 Else[employer] Patient Education 2020 [employer]. Follow Up Care 09/01/2021 13:38:23 With:Heriberto Heart Jr., MD, URO Address: [facility] [address] , [place] [address]- When: Unknown [facility] evalmqrvrq + Plan note Future Appointments Appointment Date:11/08/2021 08:15:00 AM Scheduled Provider:Heriberto Heart Jr., MD Location:[facility] Appointment Type:URO Office Visit [facility] evaluation + Plan note Future Appointments Appointment Date:01/13/2022 01:00:00 PM Scheduled Provider: Location:[facility] Appointment Type:Surgical PAT FT Appointment Date:01/25/2022 03:00:00 PM Scheduled Provider: Location:[facility] Appointment Type:[facility]gery [facility] Future Appointments Appointment Date:01/25/2022 03:00:00 PM Scheduled Provider: Location:[facility] Appointment Type:[facility] Future Appointments Appointment Date:07/09/2023 11:15:00 AM Scheduled Provider:Ray MONTERO MD Location:[facility] Appointment Type:URO Office Visit [facility] evaluation + Plan note Future Appointments Appointment Date:07/09/2023 11:15:00 AM Scheduled Provider:Ray MONTERO MD Location:[facility] Appointment Type:URO Office Visit Diagnostic Tests Pending * Calculi Analysis Urinary [facility]25/23 [facility] Plan note Future Appointments Appointment Date:07/18/2024 11:20:00 AM Scheduled Provider:TOM SHANNON PA-C Location:[facility] Appointment Type:URO Office Visit [facility] evaluation note* Diagnosis Onset Date Resolution Status Sore throat noneactive [facility] Work Phone: Evaluation note* Diagnosis Seasonal allergic rhinitis due to pollen- Primary Pain of right heel Seborrheic keratosis Viral gastroenteritis Intestinal infection due to other organism, NEC Influenza A- Primary Influenza with other respiratory manifestations [facility] Diagnosis Seasonal allergic rhinitis due to pollen- Primary Pain of right heel Seborrheic keratosis Viral gastroenteritis Intestinal infection due to other organism, NEC Subacute maxillary sinusitis- Primary Influenza A Influenza with other respiratory manifestations Subacute cough Ocular migraine (CMS/HCC) Variants of migraine, not elsewhere classified, without mention of intractable migraine without mention of status migrainosus Pharyngitis, unspecified etiology Pharyngitis, unspecified etiology- Primary Subacute maxillary sinusitis Subacute cough [facility] Diagnosis Seasonal allergic rhinitis due to pollen- Primary Pain of right heel Seborrheic keratosis Viral gastroenteritis Intestinal infection due to other organism, NEC Subacute maxillary sinusitis- Primary Influenza A Influenza with other respiratory manifestations Subacute cough Ocular migraine (CMS/HCC) Variants of migraine, not elsewhere classified, without mention of intractable migraine without mention of status migrainosus Pharyngitis, unspecified etiology Pharyngitis, unspecified etiology- Primary Subacute maxillary sinusitis Subacute cough Pharyngitis, unspecified etiology- Primary [facility] Diagnosis Seasonal allergic rhinitis due to pollen- Primary Pain of right heel Seborrheic keratosis Viral gastroenteritis Intestinal infection due to other organism, NEC Subacute maxillary sinusitis- Primary Influenza A Influenza with other respiratory manifestations Subacute cough Ocular migraine (CMS/HCC) Variants of migraine, not elsewhere classified, without mention of intractable migraine without mention of status migrainosus Pharyngitis, unspecified etiology Pharyngitis, unspecified etiology- Primary Subacute maxillary sinusitis Subacute cough Subacute cough- Primary Pharyngitis, unspecified etiology Seborrheic keratosis documented in this encounter [facility] Narrative No data available for this section [facility] Discharge instructions No data available for this section [facility] [facility] No data available for this section [facility] [place] Summary Purpose Family History No Family History [...] August 17, 2023 End: August 17, 2023 Vessel Liner Relationship Specialty Start Date End Date Boyd Desouza MD [address] [place] [phone] PCP - General Family Medicine 09/10/23 Boyd Desouza MD [address] [place] [phone] PCP - [place] [employer] 11/12/23 Vessel Liner Relationship Specialty Start Date End Date Boyd Desouza MD [address] [place] [phone] PCP - General [facility] Medicine 09/10/23 Boyd Desouza MD [address] [place] [phone] PCP - [place] [employer] 11/12/23 Vessel Liner Relationship Specialty Start Date End Date Boyd Desouza MD [address] [place] [phone] PCP - General [facility] Medicine 09/10/23 Vessel Liner Relationship Specialty Start Date End Date Boyd Desouza MD [address] [place] [phone] PCP - General Family Medicine 09/10/23 Boyd Desouza MD [address] [place] [phone] PCP - [place] [employer] 11/12/23 Vessel Liner Relationship Specialty Start Date End Date Boyd Desouza MD [address] [place] [phone] PCP - General Family Medicine 09/10/23 Vessel Liner Relationship Specialty Start Date End Date Boyd Desouza MD [address] [place] [phone] PCP - General [facility] 09/10/23 Boyd Desouza MD [address] [place] [phone] PCP - [place] [employer] 11/12/23 Vessel Liner Relationship Specialty Start Date End Date Boyd Desouza MD [address] [place] [phone] PCP - General Family [facility] 09/10/23 Boyd Desouza MD [address] [place] [phone] PCP - [place] [employer] 11/12/23 (unrecognized sect ion and content) No Status Records FoundNo Status Records FoundNo Status Records Found INFORMATION SOURCE (unrecogn ized section and content) DATE CREATED AUTHOR 05/12/2022 [facility] DATE CREATED AUTHOR AUTHOR'S ORGANIZ ATION 07/20/2024 [facility] DATE CREATED AUTHOR AUTHOR'S ORGANIZ ATION 08/30/2024 [facility] EPIC Goals (unrecognized section and content) Goals may [...] BE BASED ON THE PRIMARY CLINICAL RECORDS. [facility] [employer] [facility]. provides no warranty or guarantee of the accuracy or completeness of information in this document.
--- NOTE | 2024-12-08 11:11 | XR_ITS ---
[facility] [place] [id number] Patient Name: DAI MUÑOZ MRN: [id number] date: 1985 Sex: M Assigned Patient Location: ER Current Patient Location: ER Accession/Order Number: [id number] Exam Date: 12/08/2024 11:21 Report Date: 12/08/2024 11:22 At the request of: ALCIDES JACOME MD Procedure: XR foot LT min 3V LEFT FOOT - 3 views CLINICAL DATA: Puncture wound near the distal fifth metatarsal after patient stepped on a nail today. COMPARISON: None AP, lateral and oblique views were obtained. A marker was placed on the lateral view. There is no evidence of fracture or dislocation. There are no significant soft tissue abnormalities. No radiopaque foreign bodies are visualized. XR/XR foot LT min 3V IMPRESSION: NO ACUTE BONY INJURY OR RADIOPAQUE FOREIGN BODIES. Impression dictated by: Kathy Pollock M.D. 12/08/2024 11:22 AM Dictation Location: [place] [address] Electronically authenticated by: [id number] Y Date: 12/08/2024 11:22
[2024-12-08] MEDS: DIPHTH,PERTUSS(ACELL),TET VAC 0.5 ML SYRINGE IM (11:12)
--- NOTE | 2024-12-08 11:20 | PC.NURSE ---
L foot soaking in hibiclens bucket at this time
== END 2024-12-08 12:02 | disposition home or self-care (01) ==
PROVIDERS: Emergency Provider Emergency Medicine; PCP Family Medicine
DX: S91.332A Puncture wound without foreign body, left foot, initial encounter (principal); W45.0XXA Nail entering through skin, initial encounter; Z23 Encounter for immunization
CPT/HCPCS: 73630; 90471; 99283